=== PATIENT | male | born 1945 | race Caucasian/White ===

== ENCOUNTER 2024-04-08 19:47 | Inpatient (IN) | payer MEDICARE, SELFPAY ==
[2024-04-08] VITALS (10 sets, daily range): BP systolic 129–174; BP diastolic 63–84; BMI 31.6; BMI 31.2
[2024-04-08 15:17] LABS: % Basophils 0.3 % (0-2); % Eosinophils 0.5 % (0-6); % Immature Granulocytes 0.6 % (0-0.5); % Lymphocytes 7.2 % (20.5-51.1); % Monocytes 8.7 % (1.7-9.3); % Neutrophils 82.7 % (42.2-75.2); Absolute Eosinophils 0.1 10^3/uL (0-0.7); Absolute Immature Granulocytes 0.1 10^3/uL (0-0.05); Absolute Monocytes 1.2 10^3/uL (0.1-0.6); Absolute Neutrophils 11.8 10^3/uL (1.4-6.5); Hematocrit 42.2 % (39.0-52.0); Hemoglobin 14.6 g/dL (13.0-18.0); Mean Corp Hgb Conc. 34.6 g/dL (33.0-37.0); Mean Corpuscular Hgb 30.9 pg (27.0-31.0); Mean Corpuscular Volume 89.4 fL (80.0-94.0); Mean Platelet Volume 11.6 fL (7.4-10.4); Nucleated Red Blood Cells % 0 % (-); Platelet Count 184 10^3/uL (130-400); Red Blood Cell Count 4.72 10^6/uL (4.70-6.10); Red Cell Dist. Width 13.7 % (11.5-14.5); White Blood Cell Count 14.3 10^3/uL (4.8-10.8)
[2024-04-08 15:23] LABS: COVID-19 Antigen Negative (Negative)
[2024-04-08 15:48] LABS: ALT (SGPT) 34 U/L (0-50); AST (SGOT) 40 U/L (17-59); Albumin 4.2 g/dl (3.5-5.0); Alkaline Phosphatase 84 U/L (38-126); Blood Urea Nitrogen 24 mg/dl (9-20); Carbon Dioxide 25 mmol/L (22-30); Chloride 100 mmol/L (98-107); Estimated Creatinine Clearance 49 ml/min; Glucose 111 mg/dl (70-99); Sodium 141 mmol/L (135-145); Total Bilirubin 1.2 mg/dl (0.2-1.3); Total Protein 6.7 g/dl (6.3-8.2); eGFR 51.77
[2024-04-08 16:19] LABS: NT-proBNP 2370 pg/ml
[2024-04-08] MEDS: KCL 40 MEQ PO (16:30)
--- NOTE | 2024-04-08 16:54 | ED.GENMED ---
History of Present Illness
General
Chief Complaint: Weakness
Source: patient
Exam Limitations: none
Time Seen by Provider: 04/08/24 14:30
Nursing documentation reviewed up to this point in time: agreed with
History of Present Illness
History of Present Illness:
78-year-old male with a past medical history of hypertension, hyperlipidemia, CAD, stroke with residual right hemiparesis, diabetes who presents to the emergency room from home for evaluation of generalized weakness. Patient reports that for the
past 24 hours he has noticed that he is increasing weakness. He reports whole body weakness denies any focal weakness. He says that yesterday he had 2 minor falls but was able to help himself up. Today he had a fall and had difficulty getting up
and called EMS. He says that aside from feeling generally weak he has had some nasal congestion. He denies any other specific symptoms. He denies any cough, shortness of breath. Denies any chest pain, palpitations. Denies any abdominal pain,
nausea, vomiting, diarrhea. Denies any dysuria, hematuria, change in urinary frequency. He has chronic edema in his legs he says no worse than usual. He did have minor fall onto his bottom x 3 over the past 24 hours but says no head trauma and no
serious injuries.
Past History
Past History
ED Past Medical History: CAD, CVA and NIDDM
ED Past Surgical History: Cardiac
Social History
Tobacco: Former smoker
Alcohol: Occasional
Drug: None
Personal:
Living: alone
Employment: Retired
Family History
Family History: Other (Noncontributory)
Review of Systems
Review of Systems
All Other Systems: ROS reviewed and negative except as documented in HPI and ROS
Constitutional: Reports fatigue; Denies fever or chills
EENT: Reports other (Nasal congestion); Denies sore throat
Respiratory: Denies cough or trouble breathing
Cardiac: Denies chest pain, palpitations or syncope
ABD/GI: Denies abdominal pain, nausea, vomiting or diarrhea
: Denies dysuria, frequency or flank pain
Musculoskeletal: Reports edema; Denies neck pain or back pain
Neurological: Denies dizzy or headache
Phy Exam
Physical Exam
Physical Exam:
General: Awake, alert; no acute distress
Head: Normocephalic, atraumatic
Eyes: Conjunctiva normal, EOMI, pupils equal round and reactive to light
Throat: Airway intact, handling secretions
Neck: Trachea midline, supple without meningismus
Lungs: Clear to auscultation bilaterally, no wheezing, rales, rhonchi
Heart: Regular rate and rhythm, no murmurs, gallops, or rubs
Abd: Soft, non distended, nontender
Neuro: Cranial nerves intact, speech fluid, RLE > RUE weakness, strength intact left upper and left lower extremity (this is chronic per patient)
Extremities: +1 pitting edema bilateral lower extremities; no signs of acute trauma to the extremities, no reproducible tenderness and full range of motion in the upper and lower extremities without pain
Scores
Heart Failure Risk
Heart Failure Risk Score: Not Applicable
Heart Score for Chest Pain Patients
STEMI patient?: Not applicable
Withdrawal Assessment of Alcohol
Withdrawal Assessment Completed?: Not applicable
Sepsis
Sepsis Screening
Sepsis Assessment: Sepsis Ruled Out
Sepsis Screen
Sepsis Screen: Sepsis Ruled Out
Date: 04/11/24
Time: 22:02
Course
Orders/Labs/Results
Orders:
Orders
04/08/24 14:41
Electrocardiogram (*1) Urgent
Reason for Study: Fatigue / Weakness
EKG- Treatment ONCE
CR Chest Portable - 1 View Urgent
Comment:
Reason For Exam: weakness, eval for pna
Reason Study Needs to be Portable: Unable to Transport
04/08/24 Dinner
1800 calorie (15 carb) Diabetic
At Your Request: Full Participation
04/08/24 15:02
COVID-19 Antigen Urgent
Source: Nasal Swab
Complete Blood Count/With Diff Urgent
Comprehensive Metabolic Panel Urgent
Glycohemoglobin (HgbA1c) Urgent
Magnesium Urgent
NT-proBNP Urgent
TSH Reflex To Free T4 Urgent
Influenza A+B Rapid Molecular Urgent
LESA Source: Nasal Swab
Specimen Description:
04/08/24 15:55
Potassium Chloride [KCl] 40 meq PO NOW STA
04/08/24 17:06
Straight cath- Treatment ONCE
04/08/24 17:19
Urinalysis Reflex To Culture Urgent
Date Specimen was Collected: 04/08/24
Time Specimen was Collected: 17:18
Urine Microscopic Reflex Cult Urgent
Urine Culture Urgent
LESA Source: U
Specimen Description:
Date Specimen was Collected: 04/08/24
Time Specimen was Collected: 17:18
04/08/24 17:21
Case Management Consult ONCE
Case Management Consult: VN/Home Care
Pt Eval And Treat Urgent
Activity Level: With Assistance
04/08/24 17:42
Lactate Level [Lactic Acid] Urgent
Blood Culture Urgent
LESA Source: Blood/Venous
Specimen Description:
CefTRIAXone [Rocephin] 1,000 mg IV NOW STA
04/08/24 17:56
Blood Culture Routine
LESA Source: Blood/Venous
Specimen Description:
04/08/24 18:42
Admit/Transfer Patient As Directed
Co-Sign Provider:
Level of Care: Inpatient admission
Assign to:: Medical/Surgical
Physician / Group: josefina james
Diagnosis: Symptomatic UTI dysuria, weakness/falls with knee abrasions, hypokalemia
Reason for Hospitalization: Symptomatic UTI dysuria, weakness/falls with knee abrasions, hypokalemia
Expected length of stay greater than two midnights?: Yes
ELOS- Estimated Length of Stay in days: 3
I certify the patient meets the requirements for IP care: Yes
Code Status As Directed
Resuscitation Status: Full Code
04/08/24 18:47
PRN Pain Medication Management As Directed
May give lesser potent ordered pain med per pt: Yes
preference::
Protocol:: Medication orders for pain may be administered in a
manner that supports deferring to patient preference
when the pt is:
- Requesting an ordered lesser potent pain medication.
Least to most potent pain medications are defined
as: acetaminophen < NSAID < tramadol < opioids
(morphine, oxycodone, hydromorphone).
- Requesting a lesser dose of the same medication IF
ORDERED.
- Requesting a less intrusive route of administration
if both routes are prescribed by the provider (PO <
IV).
04/08/24 20:59
0.9% Sodium Chloride 1000 ml [Nss] 1,000 ml IV 80 mls/hr
Acetaminophen [Tylenol] 650 mg PO Q4HPRN PRN
Dextrose 50%-Water [Dextrose 50% Syringe] 12.5 grams IV [id number] PRN
Glucagon [GlucaGen] 1 mg IM PRN PRN
Heparin 5,000 units SC Q12
Ketorolac [Acular 0.5% Eye Drops] See Dose Instructions BOTH EYES BID
Metoprolol [Lopressor] 25 mg PO BID
04/08/24 20:59
Activity As Directed
Activity Level: With Assistance
Bedside Glucose Monitoring As Directed
Frequency: AC&HS
Additional Instructions:: Change to q6h if pt on TPN, tube feeding or not eating
Intake/ Output As Directed
Frequency: Per unit guidelines
Vital Signs As Directed
Frequency: Per unit guidelines
Weight As Directed
Frequency: Daily
Ot Eval And Treat Routine
Pt Eval And Treat Routine
Activity Level: With Assistance
DX Deep Vein Thrombosis Video Routine
04/08/24 21:02
Artificial Tears (Pf) [Refresh Eye Drops (Pf)] 1 drops BOTH EYES HSPRN PRN
04/08/24 22:00
Atorvastatin [Lipitor] 80 mg PO HS
Melatonin 10 mg PO HS
04/09/24 07:30
Insulin Aspart Corrective Low [Novolog Flexpen-Low Resistance] See Protocol SC AC
04/09/24 07:36
Complete Blood Count/With Diff IN AM
Comprehensive Metabolic Panel IN AM
04/09/24 08:00
Aspirin Low Dose EC [Aspir Low (Enteric Coated)] 81 mg PO DAILY
Lisinopril [Zestril] 10 mg PO DAILY
Polyethylene Glycol Powder [Miralax] 17 grams PO DAILY
Tamsulosin [Flomax] 0.4 mg PO DAILY
04/09/24 18:00
CefTRIAXone [Rocephin] 1,000 mg IV Q24H
04/10/24 06:04
Comprehensive Metabolic Panel IN AM
04/10/24 06:05
Complete Blood Count/With Diff IN AM
04/11/24 06:46
Complete Blood Count/With Diff IN AM
Comprehensive Metabolic Panel IN AM
Abnormal Lab Results
04/08/24 04/08/24
15:02 17:19
WBC 14.3 H 10^3/uL
(4.8-10.8)
MPV 11.6 H fL
(7.4-10.4)
Abs Immat Gran (auto) 0.1 H 10^3/uL
(0-0.05)
Absolute Neuts (auto) 11.8 H 10^3/uL
(1.4-6.5)
Absolute Lymphs (auto) 1.0 L 10^3/uL
(1.2-3.4)
Absolute Monos (auto) 1.2 H 10^3/uL
(0.1-0.6)
Immature Gran % 0.6 H %
(0-0.5)
Neutrophils % 82.7 H %
(42.2-75.2)
Lymphocytes % 7.2 L %
(20.5-51.1)
Potassium 3.0 L mmol/L
(3.5-5.1)
BUN 24 H mg/dl
(9-20)
Creatinine 1.4 H mg/dL
(0.7-1.3)
Glucose 111 H mg/dl
(70-99)
Hemoglobin A1c 5.7 H %
(4.0-5.6)
Urine Ketones 1+ A
(Negative)
Ur Occult Blood Reflex 3+ A
(Negative)
Urine Nitrite (Reflex) Positive A
(Negative)
Leukocyte Esterase Rfl 2+ A
(Negative)
Urine WBC (Reflex) 30-40 A /HPF
(0-5)
Urine Bacteria (Reflex) Many A
(Negative)
Urine Albumin (Reflex) 2+ A
(Neg - Trace)
04/08/24 15:02
04/08/24 15:02
Vital Signs
Initial and Last Documented VS:
Initial Vital Signs
Pulse Resp
94 16
04/08/24 14:27 04/08/24 14:27
Last Documented Vital Signs
Temp Pulse Resp BP Pulse Ox
36.6 C 76 18 116/57 98
04/11/24 15:05 04/11/24 15:05 04/11/24 15:05 04/11/24 15:05 04/11/24 15:05
MDM/Problems Addressed
Differential Diagnosis Includes:
Differential diagnosis for generalized weakness is wide and includes but not limited to: Anemia, dehydration, electrolyte derangement, infection including UTI or pneumonia, viral syndrome, dysrhythmia, CHF; no focal weakness to suggest stroke
MDM/Problems Addressed:
78-year-old male presents for evaluation of generalized weakness over the past 24 hours resulting in multiple minor falls. Lives by himself, supposed to use a walker but noncompliant. Vital signs normal here, physical exam as above. Will place an
IV check labs including a CBC, CMP. Check urinalysis. Check chest x-ray, EKG and proBNP. Swab for COVID and flu. Monitor closely reassess after the above.
Labs reviewed: CBC shows a leukocytosis to 14.3. CMP shows chronic kidney disease with stable creatinine 1.4. He is hypokalemic to 3.0�he has been on Lasix. Will provide potassium repletion. Magnesium was acceptable. proBNP was elevated to
2370; chest x-ray no signs of pneumonia, no angela edema. Awaiting results of urinalysis.
*Pulse Oximetry
Patient hypoxic: no
*EKG
Interpreted by ED Provider?: Yes
Heart Rate: 91
Rate: normal
Rhythm: sinus and PVC's
[place]: left axis deviation
Interval: first degree heart block
QRS Pattern: right bundle branch block
Ischemia: non-specific ST changes
*Critical Care Note
Total Time (30-74mins, 75-104mins- exclusive of procedures): Not Applicable
Data Reviewed
Review of Other/Old Records Reveals: Labs and Records
Source: patient and records
Patient Management
Social determinants of health affecting care: Living situation
Discussion with other providers: Hospitalist (Discussed with hospitalist) and Other (Discussed with case management)
Escalation/DeEscalation of care consider admission/obs:
Admission indicated
ED Attending Note
-
Portions of this chart may have been created with voice recognition software.� Occasional wrong word or��sound alike� substitutions may have occurred due to the inherent limitations of voice recognition software.
Discharge Plan
Departure
Patient Disposition: Admit
Date of Disposition: 04/08/24
Time of Disposition: 17:42
Admit to doctor: Nguyễn
Presentation/result/management discussed w/ accepting MD/DO: Hospitalist
Discharge Problem:
Acute UTI, Acute hypokalemia
Interventions
Interventions:
*Risk Screen - Suicide Last Done: 04/08/24 21:14
*General Assessment Last Done: 04/08/24 14:31
*Neglect/Abuse Screening Last Done: 04/08/24 14:31
ED- Fall Risk Assessment Last Done: 04/08/24 20:34
*Nursing Disposition Last Done: 04/08/24 20:40
ED- Cardiac Assessment Last Done: 04/08/24 14:35
ED- Neurological Assessment Last Done: 04/08/24 14:35
ED- Pulmonary Assessment Last Done: 04/08/24 14:35
Discharge Date and Time
Discharge Date/Time: 04/08/24 20:40
[2024-04-08 17:29] LABS: Urine Albumin 2+ (Neg - Trace); Urine Bilirubin Negative (Negative); Urine Character Very Cloudy (Clear); Urine Color Yellow; Urine Glucose Negative (Negative); Urine Ketone 1+ (Negative); Urine Leukocyte 2+ (Negative); Urine Nitrite Positive (Negative); Urine Occult Blood 3+ (Negative); Urine Urobilinogen Negative (Neg - 1+)
[2024-04-08 17:47] LABS: Urine Bacteria Many (Negative); Urine Red Blood Cell 0-2 /HPF (0-2); Urine White Cell 30-40 /HPF (0-5)
--- NOTE | 2024-04-08 17:53 | CM ---
CM was consulted to discuss discharge planning. CM met with patient in room. Patient stated that he does lives alone in a single floor home. Patient denies history of VN. Patient has been to [facility] in the past. Patient is active with his PCP.
Patient uses [facility] on [address].
Patient does report that his ex is 'very close by' and he often calls her for assistance. Patient further stated that his neighbors provide assistance as needed. Patient has had multiple falls recently. Patient did not express preference for
home or SNF. CM advised that PT will evaluate patient and further discharge recommendations will be made. CM will continue to follow.
[2024-04-08 17:57] LABS: TSH Reflex To Free T4 0.56 uIU/ml (0.47-4.68)
[2024-04-08] MEDS: ROCEPHIN 1000 MG IV (18:15)
--- NOTE | 2024-04-08 18:17 | HPS.HSE ---
Family Physician
-
Family Physician: Randy Miles
Chief Complaint
-
Falls, weakness, dysuria
History of Present Illness
78-year-old male complaining of increased weakness over his entire body over the past 24 hours with some dysuria he did have 2 falls yesterday and today while bending over to get something. He reports he called EMS to bring him to the hospital for
evaluation. He lives alone at home. He denies sore throat, headache, neck pain, chest pain, palpitations, shortness of breath, cough, abdominal pain, nausea, vomiting, diarrhea. He reports chronic edema in his legs not worse than baseline. He
has past medical history of hypertension, HLD, CAD/CABG x 3 vessel, CVA with residual right hemiparesis, DM 2, former smoker, dry eye syndrome, renal calculi lithotripsy [facility], [place], constipation
Medical History
Past Medical History
Past Medical History: Reports Other
Additional Past Medical History:
hypertension
HLD
CAD/CABG x 3 vessel
CVA with residual right hemiparesis
DM 2
former smoker
dry eye syndrome
renal calculi lithotripsy [facility]
UTIs, Klebsiella pneumoniae 01/09/2021
4 hemorrhagic right renal cyst 01/09/2021
[place]
constipation
Past Surgical History: Reports Other
Additional Past Surgical History:
CABG x 3 vessels 01/08/2014
Hemorrhoidectomy 2018
Tonsillectomy
Cataract extraction
Social History
Tobacco: Former Smoker ([id number] 2 to 3 pack a day. 1993)
Alcohol: Occasional (1 beer on Saturdays)
Drug: None
Personal:
Living: Alone
Employment: Retired
Family History
Family History: Other (Father failure to thrive, mother 'liver issues,')
Allergies / Home Medications
Allergies reflects when Allergies were last updated in [facility].
Home Medications with original date entered in [facility]
Allergy/Medication List:
Allergies
Allergy/AdvReac Type Severity Reaction Status Date / Time
pioglitazone [From Actos] Allergy Unknown Verified 01/09/21 15:33
Home Medications
acetaminophen 650 mg tablet,extended release (Pain Relief (acetaminophen)) 1,300 mg PO TIDPRN PRN mild pain 03/09/10
metformin 1,000 mg tablet 500 mg PO BID Diabetes 06/27/12
metoprolol tartrate 25 mg tablet 25 mg PO BID ##60 01/16/14
phenylephrine HCl 1 % nasal spray (Nasal Four) 1 spray NS Q1HPRN PRN congestion 02/07/14
aspirin 81 mg tablet,delayed release 81 mg PO DAILY Blood clot prevention/tx 08/11/16
atorvastatin 80 mg tablet 80 mg PO HS High cholesterol 08/11/16
guaifenesin 400 mg tablet 400 mg PO HS Cough 08/11/16
melatonin 10 mg tablet 10 mg PO HS Sleep 08/11/16
furosemide 40 mg tablet (Lasix) 40 mg PO DAILY Fluid retention/Swelling 01/09/21
glipizide 5 mg tablet 5 mg PO DAILY Diabetes 01/09/21
tamsulosin 0.4 mg capsule 0.4 mg PO DAILY #30 caps 01/11/21
ketorolac 0.5 % eye drops 1 drp BOTH EYES BID 04/08/24
lisinopril 10 mg-hydrochlorothiazide 12.5 mg tablet 1 tab PO DAILY 04/08/24
polyethylene glycol 3350 17 gram oral powder packet (Miralax) 17 g PO DAILY 04/08/24
propylene glycol 0.6 % eye drops (Systane Balance) 1 drp BOTH EYES HSPRN PRN dry eyes 04/08/24
psyllium husk 3.4 gram/5.4 gram oral powder (Metamucil) 2 tbsp PO DAILY 04/08/24
salicylic acid 3 % shampoo (DHS Hay) 1 applic topical .2-3X WEEKLY scalp rash 04/08/24
Review of Systems
-
History Source: Patient
A 12 point ROS was completed and negative except as noted: Yes
Constitutional: Reports Fatigue; Denies Fever or Chills
EENT: Reports Other (Chronic [place]); Denies Sore Throat or Runny Nose
Respiratory: Denies Cough or Trouble Breathing
Cardiac: Denies Chest Pain, Diaphoresis, Palpitations or Syncope
Abdomen/GI: Denies Abdominal Pain, Nausea, Vomiting, Diarrhea, Constipated, Bloody Stools or Black Stools
: Reports Dysuria and Dark Urine; Denies Frequency, Flank Pain, Incontinence, Difficulty Voiding, Urgency or Bleeding
Musculoskeletal: Reports Edema (Chronic +1 peripheral edema); Denies Joint Pain
Skin: Reports Other (Knee abrasions from recent falls); Denies Itching or Rash
Neurological: Reports Weakness (Generalized); Denies Dizzy or Headache
Endocrine: Reports No Symptoms
Hematologic/Lymphatic: Reports No Symptoms
Psych: Reports Calm
Physical Exam
Vital Signs
Vital Signs
Temp Pulse Resp BP Pulse Ox
99.7 F 87 14 165/74 94
04/08/24 14:33 04/08/24 16:00 04/08/24 16:00 04/08/24 16:00 04/08/24 16:00
Physical Exam
General: No Pain, Fever or Chills
HEENT: NormoCephalic, Anicteric, Moist mucous membranes, PERRLA, [place] Conjunctivae, No Ptosis, Neck Nontender and Other (Chronic [place])
Respiratory: Clear; No Wheezes, Rales or Rhonchi
Cardiac: S1/S2, Regular Rhythm and Peripheral Edema (Chronic +1); No Murmur, Rub or Gallop
Breast: Deferred by me
GI: Soft, Non Tender, Non Distended, Normal Bowel Sounds and No Hepatosplenomegaly
Rectal: Deferred by Provider
Genito-urinary: Deferred by me
Musculoskeletal: No Clubbing, No Cyanosis, Edema, Left Lower Extremity (Chronic +1) and Edema, Right Lower Extremity (Chronic +1); No Edema, Left Upper Extremity or Edema, Right Upper Extremity
Skin: Warm, Dry and Other (Knee abrasions from recent falls); No Rash
Neuro: AO x 3, No Motor Deficits, Cranial Nerves Intact and Other (Chronic [place]); No Slurred Speech, Facial Droop or Tremors
Psych: Calm
Laboratory Results
-
04/08/24 15:02
04/08/24 15:02
Laboratory Results
Lactic Acid 1.0 mmol/L (0.7-2.0) 04/08/24 17:42
Total Bilirubin 1.2 mg/dl (0.2-1.3) 04/08/24 15:02
AST 40 U/L (17-59) 04/08/24 15:02
ALT 34 U/L (0-50) 04/08/24 15:02
Alkaline Phosphatase 84 U/L (38-126) 04/08/24 15:02
Data Reviewed
-
Diagnostic Radiology: Report Reviewed by me
Lab Data: Labs Reviewed by me
Impression/Plan
-
Impression/plan:
Admit to telemetry
#Symptomatic UTI(dysuria)
#Weakness with FALLS / KNEE ABRASIONS 2/2 UTI
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
Follow-up MRI 01/10/2021-showing 4 small hemorrhagic cyst in the right kidney no evidence of renal cell carcinoma, moderate left hydroureteronephrosis
Urinalysis positive nitrates +2 leukocytes WBC 30�40 many bacteria +3 occult blood
-Follow urine culture
-IV Rocephin
-IV NSS
-Follow CBC, CMP
CXR: 1. No radiographic evidence for pneumonia, acute pulmonary edema, or pleural effusion.
2. Mild scarring/subsegmental atelectasis in the lower lungs.
3. Mild chronic elevation of the right hemidiaphragm.
4. Previous CABG surgery.
#Acute hypokalemia 2/2 diuresis
K3.0
-Patient given 40 KCl in ER
-Follow BMP in a.m.
-Hold diuretics
#DM 2
Accu-Cheks with SSI low, check HgbA1c
-Hold metformin 500 mg twice daily, glipizide 5 mg daily
#CKD 3B
Creat 1.4 appears baseline
-Follow BMP
#HTN�benign
BP 165/74
-Continue lisinopril 10 mg daily hold HCTZ, furosemide 40 mg daily
#HLD
-Continue atorvastatin 80 mg at bedtime
#CAD/CABG x 3 vessel
-Continue aspirin 81 mg daily, atorvastatin 80 mg at bedtime, metoprolol tartrate 25 mg twice daily
#CVA with residual right hemiparesis resolved
#Chronic leg edema
-Hold furosemide
#Insomnia
Continue melatonin 10 mg at bedtime
Other past medical history:
Former smoker
Dry eye syndrome-continue Systane as needed from home
Renal calculi lithotripsy [facility]
[place]
constipation-continue MiraLAX 17 g daily
DVT prophylaxis
Subcu heparin
Full code
--- NOTE | 2024-04-08 19:29 | W.PN.UPDATE ---
Update Note
Progress Note Update
This is an addendum to the H&P written by Maureen Reed on 04/08/2024. Patient seen and examined independently with PUBLIC ACCOUNTANT.
78-year-old male past medical history of diabetes, CKD 3B, hypertension, hyperlipidemia, CAD status post CABG, CVA, chronic leg edema, insomnia, here with symptomatic UTI and weakness and fall.
Labs show hypokalemia, leukocytosis.
Symptomatic UTI. Prior culture showed Klebsiella sensitive to ceftriaxone. IV fluids, await urine culture, ceftriaxone. Hypokalemia secondary to diuretics. Hold diuretics. Potassium repletion, check magnesium.
[2024-04-08 21:48] LABS: Glucose - Point of Care 134 mg/dl (70-99)
[2024-04-08] MEDS: MELATONIN 10 MG PO (21:54)
[2024-04-08] MEDS: LIPITOR 80 MG PO (21:54)
[2024-04-08] MEDS: LOPRESSOR 25 MG PO (21:54)
[2024-04-08] MEDS: HEPARIN 5000 UNITS SC (21:55)
[2024-04-08] MEDS: ACULAR 0.5% EYE DROPS 1 DROP BOTH EYES (22:01)
[2024-04-08] MEDS: NSS 1000 IV (22:02)
--- NOTE | 2024-04-08 22:10 | TRANSFER ---
Pt received from ED to room 417-2. Pt pulled over from stretcher to bed. Pt AAOx3. VSS. Bed alarm for safety. Pt oriented to room and call garcia within reach.
[2024-04-09] MEDS: TYLENOL 650 MG PO ×2 (02:36→10:50)
[2024-04-09 06:00] VITALS: BMI 31.6
[2024-04-09 07:25] VITALS: BP 161/76
[2024-04-09 07:55] LABS: Glucose - Point of Care 93 mg/dl (70-99)
[2024-04-09] MEDS: NOVOLOG FLEXPEN-LOW RESISTANCE SC ×2 (08:03→16:35)
[2024-04-09] MEDS: ACULAR 0.5% EYE DROPS 1 DROP BOTH EYES ×2 (08:21→19:45)
[2024-04-09] MEDS: LOPRESSOR 25 MG PO ×2 (08:22→19:46)
[2024-04-09] MEDS: ASPIR LOW (ENTERIC COATED) 81 MG PO (08:22)
[2024-04-09] MEDS: FLOMAX 0.4 MG PO (08:22)
[2024-04-09] MEDS: ZESTRIL 10 MG PO (08:22)
[2024-04-09] MEDS: HEPARIN 5000 UNITS SC ×2 (08:23→19:45)
[2024-04-09 08:30] LABS: Hematocrit 39.8 % (39.0-52.0); Hemoglobin 14.5 g/dL (13.0-18.0); Mean Corp Hgb Conc. 36.4 g/dL (33.0-37.0); Mean Corpuscular Hgb 31.4 pg (27.0-31.0); Mean Corpuscular Volume 86.1 fL (80.0-94.0); Mean Platelet Volume 12.9 fL (7.4-10.4); Platelet Count 148 10^3/uL (130-400); Red Blood Cell Count 4.62 10^6/uL (4.70-6.10); Red Cell Dist. Width 13.5 % (11.5-14.5); White Blood Cell Count 9.1 10^3/uL (4.8-10.8)
[2024-04-09 09:00] LABS: ALT (SGPT) 39 U/L (0-50); AST (SGOT) 48 U/L (17-59); Albumin 4.1 g/dl (3.5-5.0); Alkaline Phosphatase 83 U/L (38-126); Blood Urea Nitrogen 24 mg/dl (9-20); Calcium 9.3 mg/dl (8.4-10.2); Carbon Dioxide 28 mmol/L (22-30); Chloride 101 mmol/L (98-107); Estimated Creatinine Clearance 49 ml/min; Glucose 108 mg/dl (70-99); Potassium 2.9 mmol/L (3.5-5.1); Sodium 144 mmol/L (135-145); Total Bilirubin 0.8 mg/dl (0.2-1.3); Total Protein 6.9 g/dl (6.3-8.2); eGFR 51.77
[2024-04-09 09:18] LABS: % Basophils 0.4 % (0-2); % Eosinophils 1.8 % (0-6); % Immature Granulocytes 0.8 % (0-0.5); % Lymphocytes 13.6 % (20.5-51.1); % Monocytes 8.9 % (1.7-9.3); % Neutrophils 74.5 % (42.2-75.2); Absolute Eosinophils 0.2 10^3/uL (0-0.7); Absolute Immature Granulocytes 0.1 10^3/uL (0-0.05); Absolute Lymphocytes 1.2 10^3/uL (1.2-3.4); Absolute Monocytes 0.8 10^3/uL (0.1-0.6); Absolute Neutrophils 6.8 10^3/uL (1.4-6.5); Nucleated Red Blood Cells % 0 % (-)
[2024-04-09 09:36] VITALS: BP 160/66; PULSE 70; O2SAT 96
[2024-04-09 09:44] LABS: Glycohemoglobin (HgbA1c) 5.7 % (4.0-5.6)
[2024-04-09 11:26] LABS: Glucose - Point of Care 159 mg/dl (70-99)
[2024-04-09] MEDS: NOVOLOG FLEXPEN-LOW RESISTANCE 1 UNITS SC (12:22)
[2024-04-09 13:39] VITALS: BP 119/88; PULSE 74; O2SAT 98
--- NOTE | 2024-04-09 13:47 | W.PN.HOSP.TC ---
Today's Communication/Plan
-
f/u urine/blood cs report
continue on rocephin
Assessment / Plan
Assessment / Plan
1. UTI - organism unknown
Sepsis - leukocytosis/fever - POA
h/o of Klebsiella Pneumonia UTI
-patient presented with gen weakness,
-febrile last night, TWBC trending down
-UA showing pyuria/bacteriuria
-f/u urine and blood cs report
-maintain on Rocephin based on previous urine cs report
2. Generalized weakness
Mechanical fall
-PT/OT evaluation
3. Hypokalemia
-Provide oral kcl 40meq x2h
-mag wnl
4. CKDIIIA
- cr trend reviewed and patient cr close to 1.4
-close to baseline, monitor
5. HTN urgency
Essential HTN
-maintained on lisinopril/metoprolol 25mg/bid
-PRN hydralazine for SBP > 160
NIDDM
HLD
CAD/CABG
h/o CVA with residual right hemiparesis
Chronic leg edema
Insomnia
Former smoker
Dry eye syndrome
Renal calculi
DVT PPX - heparin subq
Full code
Anticipated Discharge: 24 - 48 hours
Subjective/Interval History
-
Date of Service: April 09, 2024
no complains overnight
continues to have fever overnight
Objective Data
-
Labs:
Laboratory Results
04/09/24
07:36
WBC 9.1
Hgb 14.5
Hct 39.8
Plt Count 148
Sodium 144
Potassium 2.9 L
Chloride 101
Carbon Dioxide 28
BUN 24 H
Creatinine 1.4 H
Glucose 108 H
Calcium 9.3
Total Bilirubin 0.8
AST 48
ALT 39
Alkaline Phosphatase 83
Vital Signs:
Vital Signs
Temp Pulse Resp BP Pulse Ox
98.1 F 82 20 161/76 96
04/09/24 07:25 04/09/24 07:25 04/09/24 07:25 04/09/24 07:25 04/09/24 07:25
I&O
04/08/24 04/09/24 04/10/24
06:59 06:59 06:59
Intake Total 480 / 480
Balance 480 / 480
Review of Systems
-
Respiratory: Reports No Symptoms
Cardiac: Reports No Symptoms
Abdomen/GI: Reports No Symptoms
Physical Exam
-
General: No Apparent Distress and Comfortable
HEENT: Negative Oxygen
Respiratory: Clear to Auscultation
Cardiac: Regular Rhythm and S1/S2; Negative Murmur or Rub
GI: Soft, Nontender, Nondistended and Normal Bowel Sounds
Musculoskeletal: No Edema
Neuro: Awake, Alert, Oriented, No Motor Deficits and Nonfocal/Grossly Intact
Psych: Calm
[2024-04-09] MEDS: KCL 40 MEQ PO ×2 (14:14→17:32)
[2024-04-09] MEDS: NSS 1000 IV (14:14)
[2024-04-09 15:30] VITALS: BP 153/76
[2024-04-09 16:32] LABS: Glucose - Point of Care 113 mg/dl (70-99)
[2024-04-09] MEDS: STERILE WATER FOR INJECTION 10 ML IV (17:31)
[2024-04-09] MEDS: ROCEPHIN 1000 MG IV (17:31)
[2024-04-09 19:25] VITALS: BP 176/83
[2024-04-09 21:34] LABS: Glucose - Point of Care 113 mg/dl (70-99)
[2024-04-09] MEDS: LIPITOR 80 MG PO (22:21)
[2024-04-09] MEDS: MELATONIN 10 MG PO (22:21)
[2024-04-09 23:00] VITALS: BP 160/73
[2024-04-10] MEDS: TYLENOL 650 MG PO ×2 (00:34→23:19)
[2024-04-10 06:00] VITALS: BMI 31.8
[2024-04-10 07:00] VITALS: BP 165/74
[2024-04-10 07:05] LABS: % Basophils 0.5 % (0-2); % Eosinophils 4.6 % (0-6); % Immature Granulocytes 0.4 % (0-0.5); % Lymphocytes 21.8 % (20.5-51.1); % Monocytes 19.6 % (1.7-9.3); % Neutrophils 53.1 % (42.2-75.2); Absolute Eosinophils 0.3 10^3/uL (0-0.7); Absolute Lymphocytes 1.2 10^3/uL (1.2-3.4); Absolute Monocytes 1.1 10^3/uL (0.1-0.6); Hematocrit 37.5 % (39.0-52.0); Hemoglobin 12.9 g/dL (13.0-18.0); Mean Corp Hgb Conc. 34.4 g/dL (33.0-37.0); Mean Corpuscular Hgb 29.7 pg (27.0-31.0); Mean Corpuscular Volume 86.4 fL (80.0-94.0); Mean Platelet Volume 11.9 fL (7.4-10.4); Nucleated Red Blood Cells % 0 % (-); Platelet Count 157 10^3/uL (130-400); Red Blood Cell Count 4.34 10^6/uL (4.70-6.10); Red Cell Dist. Width 13.4 % (11.5-14.5); White Blood Cell Count 5.6 10^3/uL (4.8-10.8)
[2024-04-10 07:43] LABS: ALT (SGPT) 60 U/L (0-50); AST (SGOT) 66 U/L (17-59); Albumin 3.2 g/dl (3.5-5.0); Alkaline Phosphatase 71 U/L (38-126); Blood Urea Nitrogen 22 mg/dl (9-20); Calcium 8.6 mg/dl (8.4-10.2); Carbon Dioxide 24 mmol/L (22-30); Chloride 108 mmol/L (98-107); Estimated Creatinine Clearance 58 ml/min; Glucose 113 mg/dl (70-99); Potassium 3.1 mmol/L (3.5-5.1); Sodium 141 mmol/L (135-145); Total Bilirubin 0.5 mg/dl (0.2-1.3); Total Protein 5.6 g/dl (6.3-8.2); eGFR > 60.00
[2024-04-10 08:03] LABS: Glucose - Point of Care 108 mg/dl (70-99)
[2024-04-10] MEDS: NOVOLOG FLEXPEN-LOW RESISTANCE SC ×2 (08:03→16:28)
[2024-04-10] MEDS: ACULAR 0.5% EYE DROPS 1 DROP BOTH EYES ×2 (08:45→19:36)
[2024-04-10] MEDS: ASPIR LOW (ENTERIC COATED) 81 MG PO (08:46)
[2024-04-10] MEDS: ZESTRIL 10 MG PO (08:46)
[2024-04-10] MEDS: LOPRESSOR 25 MG PO ×2 (08:46→19:35)
[2024-04-10] MEDS: FLOMAX 0.4 MG PO (08:46)
[2024-04-10] MEDS: HEPARIN 5000 UNITS SC ×2 (08:47→19:36)
[2024-04-10 11:52] LABS: Glucose - Point of Care 192 mg/dl (70-99)
[2024-04-10] MEDS: NOVOLOG FLEXPEN-LOW RESISTANCE 1 UNITS SC (11:53)
--- NOTE | 2024-04-10 14:05 | W.PN.HOSP.TC ---
Today's Communication/Plan
-
check LFT
d/c planning snf rehab
Assessment / Plan
Assessment / Plan
1. UTI - organism unknown
Sepsis - leukocytosis/fever - POA
h/o of Klebsiella Pneumonia UTI
-patient presented with gen weakness,
-febrile last night, TWBC trending down
-UA showing pyuria/bacteriuria
-Blood cultures negative. Urine culture growing mixed amena
-Patient had appropriate response to Rocephin, can likely be transition to Omnicef at discharge
2. Generalized weakness
Mechanical fall
-PT/OT evaluated and appropriate for home PT versus short-term rehab, patient chose short rehab
3. Hypokalemia
-Replaced 80 mEq on Thursday, giving 40 mEq today
-mag wnl
4. CKDIIIA
- cr trend reviewed and patient cr close to 1.2-1.4 range
5. HTN urgency - resolved
Essential HTN
-maintained on lisinopril 10mg /metoprolol 25mg/bid
-PRN hydralazine for SBP > 160
6. Transaminitis
-new minor elevation in LFT today, questioning rocephin use related
-recheck in morning
NIDDM
HLD
CAD/CABG
h/o CVA with residual right hemiparesis
Chronic leg edema
Insomnia
Former smoker
Dry eye syndrome
Renal calculi
DVT PPX - heparin subq
Full code
PT/OT short rehab
Anticipated Discharge: Within 24 hours
Subjective/Interval History
-
Date of Service: April 10, 2024
Feeling better
Afebrile overnight
No abdominal pain/dysuria/nausea/vomiting
Objective Data
-
Labs:
Laboratory Results
04/10/24 04/10/24
06:04 06:05
WBC 5.6
Hgb 12.9 L
Hct 37.5 L
Plt Count 157
Sodium 141
Potassium 3.1 L
Chloride 108 H
Carbon Dioxide 24
BUN 22 H
Creatinine 1.2
Glucose 113 H
Calcium 8.6
Total Bilirubin 0.5
AST 66 H
ALT 60 H
Alkaline Phosphatase 71
Vital Signs:
Vital Signs
Temp Pulse Resp BP Pulse Ox
97.5 F 62 16 165/74 98
04/10/24 07:00 04/10/24 08:46 04/10/24 07:00 04/10/24 08:46 04/10/24 07:00
I&O
04/09/24 04/10/24 04/11/24
06:59 06:59 06:59
Intake Total 480 / 480 960 / 960
Output Total 460 / 460
Balance 480 / 480 500 / 500
Review of Systems
-
Respiratory: Reports No Symptoms
Cardiac: Reports No Symptoms
Abdomen/GI: Reports No Symptoms
Physical Exam
-
General: No Apparent Distress and Comfortable
HEENT: Negative Oxygen
Respiratory: Clear to Auscultation
Cardiac: Regular Rhythm and S1/S2; Negative Murmur or Rub
GI: Soft, Nontender, Nondistended and Normal Bowel Sounds
Musculoskeletal: No Edema
Neuro: Awake, Alert, Oriented, No Motor Deficits and Nonfocal/Grossly Intact
Psych: Calm
[2024-04-10] MEDS: KLOR-CON 40 MEQ PO (14:10)
[2024-04-10 15:00] VITALS: BP 136/62
--- NOTE | 2024-04-10 15:17 | CM ---
Patient with Dx UTI, Sepsis, Generalized weakness, Mechanical fall. Room air. Receiving IV Abx. PT recommends AR vs SNF. OT recommends skilled rehab.
Spoke with patient about his current functional mobility as per PT/OT; patient agrees with short term rehab. He prefers to go to [facility] where he went previously for SNF, and will consider other SNFs if they are unavailable. Patient says he makes
his own care decisions, and his brother is currently out of town. His ex- sometimes assists him with things such as transportation.
SNF referral placed.
Plan follow up tomorrow with [facility].
[2024-04-10 16:29] LABS: Glucose - Point of Care 144 mg/dl (70-99)
[2024-04-10] MEDS: STERILE WATER FOR INJECTION 10 ML IV (17:10)
[2024-04-10] MEDS: ROCEPHIN 1000 MG IV (17:10)
[2024-04-10] MEDS: GLUCOPHAGE 500 MG PO (17:10)
[2024-04-10 19:30] VITALS: BP 157/76
[2024-04-10 21:10] LABS: Glucose - Point of Care 185 mg/dl (70-99)
[2024-04-10] MEDS: LIPITOR 80 MG PO (21:11)
[2024-04-10] MEDS: MELATONIN 10 MG PO (21:11)
[2024-04-10] MEDS: APRESOLINE 10 MG IV (23:12)
[2024-04-10 23:41] VITALS: BP 178/83
[2024-04-11 04:27] VITALS: BP 145/64
[2024-04-11 07:26] LABS: % Basophils 0.8 % (0-2); % Eosinophils 6.2 % (0-6); % Immature Granulocytes 0.6 % (0-0.5); % Lymphocytes 25.5 % (20.5-51.1); % Neutrophils 48.9 % (42.2-75.2); Absolute Eosinophils 0.3 10^3/uL (0-0.7); Absolute Lymphocytes 1.3 10^3/uL (1.2-3.4); Absolute Monocytes 0.9 10^3/uL (0.1-0.6); Absolute Neutrophils 2.5 10^3/uL (1.4-6.5); Hematocrit 39.3 % (39.0-52.0); Hemoglobin 13.4 g/dL (13.0-18.0); Mean Corp Hgb Conc. 34.1 g/dL (33.0-37.0); Mean Corpuscular Hgb 30.5 pg (27.0-31.0); Mean Corpuscular Volume 89.3 fL (80.0-94.0); Mean Platelet Volume 11.5 fL (7.4-10.4); Nucleated Red Blood Cells % 0 % (-); Platelet Count 177 10^3/uL (130-400); Red Cell Dist. Width 13.2 % (11.5-14.5); White Blood Cell Count 5.2 10^3/uL (4.8-10.8)
[2024-04-11 07:34] LABS: Glucose - Point of Care 125 mg/dl (70-99)
[2024-04-11] MEDS: NOVOLOG FLEXPEN-LOW RESISTANCE SC ×2 (07:37→12:33)
[2024-04-11 07:42] VITALS: BP 148/73
[2024-04-11 07:49] LABS: ALT (SGPT) 85 U/L (0-50); AST (SGOT) 77 U/L (17-59); Albumin 3.1 g/dl (3.5-5.0); Alkaline Phosphatase 82 U/L (38-126); Blood Urea Nitrogen 20 mg/dl (9-20); Calcium 8.9 mg/dl (8.4-10.2); Carbon Dioxide 26 mmol/L (22-30); Chloride 107 mmol/L (98-107); Estimated Creatinine Clearance 63 ml/min; Glucose 126 mg/dl (70-99); Potassium 3.3 mmol/L (3.5-5.1); Sodium 143 mmol/L (135-145); Total Bilirubin 0.3 mg/dl (0.2-1.3); Total Protein 5.7 g/dl (6.3-8.2); eGFR > 60.00
[2024-04-11] MEDS: GLUCOPHAGE 500 MG PO (08:29)
[2024-04-11] MEDS: GLUCOTROL 5 MG PO (08:29)
[2024-04-11] MEDS: FLOMAX 0.4 MG PO (08:29)
[2024-04-11] MEDS: LOPRESSOR 25 MG PO (08:29)
[2024-04-11] MEDS: HEPARIN 5000 UNITS SC (08:29)
[2024-04-11] MEDS: ASPIR LOW (ENTERIC COATED) 81 MG PO (08:30)
[2024-04-11] MEDS: ZESTRIL 10 MG PO (08:30)
[2024-04-11] MEDS: ACULAR 0.5% EYE DROPS 1 DROP BOTH EYES (08:30)
[2024-04-11] MEDS: KCL 20 MEQ PO (08:33)
[2024-04-11 08:51] VITALS: BMI 31.8
[2024-04-11] MEDS: TYLENOL 650 MG PO (10:47)
--- NOTE | 2024-04-11 11:35 | W.PN.HOSP.TC ---
Addendum entered and electronically signed by Wilfredo Grider MD 04/11/24 11:51:
Time of discharge 38 minutes
Original Note:
Today's Communication/Plan
-
Monitor vital signs see plan
Replete potassium
Continue to biotics
Monitor LFTs
Restart Lasix
Discharge planning
Assessment / Plan
Assessment / Plan
UTI - organism unknown
Sepsis - leukocytosis/fever - POA
h/o of Klebsiella Pneumonia UTI
-patient presented with gen weakness,
-febrile last night, TWBC trending down
-UA showing pyuria/bacteriuria
-Blood cultures negative. Urine culture growing mixed aemna
-Patient had appropriate response to Rocephin, can likely be transition to cefdinir at discharge
Generalized weakness
Mechanical fall
-PT/OT evaluated and appropriate for home PT versus short-term rehab, patient chose short rehab
Hypokalemia
replete
CKDIIIA
- cr trend reviewed and patient cr close to 1.2-1.4 range
HTN urgency - resolved
Essential HTN
-maintained on lisinopril 10mg /metoprolol 25mg/bid
-PRN hydralazine for SBP > 160
Transaminitis
-new minor elevation in LFT today, questioning rocephin use related
-recheck in morning
NIDDM
HLD
CAD/CABG
h/o CVA with residual right hemiparesis
Chronic leg edema
Insomnia
Former smoker
Dry eye syndrome
Renal calculi
DVT PPX - heparin subq
Full code
PT/OT short rehab
General: No Apparent Distress and Comfortable
HEENT: Negative Oxygen
Respiratory: Clear to Auscultation
Cardiac: Regular Rhythm and S1/S2; Negative Murmur or Rub
GI: Soft, Nontender, Nondistended and Normal Bowel Sounds
Musculoskeletal: No Edema
Neuro: Awake, Alert, Oriented, No Motor Deficits and Nonfocal/Grossly Intact
Psych: Calm
Anticipated Discharge: Within 24 hours
Subjective/Interval History
-
Date of Service: April 11, 2024
denies pain
Objective Data
-
Labs:
Laboratory Results
04/11/24
06:46
WBC 5.2
Hgb 13.4
Hct 39.3
Plt Count 177
Sodium 143
Potassium 3.3 L
Chloride 107
Carbon Dioxide 26
BUN 20
Creatinine 1.1
Glucose 126 H
Calcium 8.9
Total Bilirubin 0.3
AST 77 H
ALT 85 H
Alkaline Phosphatase 82
Vital Signs:
Vital Signs
Temp Pulse Resp BP Pulse Ox
97.4 F 63 19 148/72 97
04/11/24 07:42 04/11/24 08:29 04/11/24 07:42 04/11/24 08:29 04/11/24 10:00
I&O
04/10/24 04/11/24 04/12/24
06:59 06:59 06:59
Intake Total 960 / 960 1620 / 1620
Output Total 460 / 460 700 / 700
Balance 500 / 500 920 / 920
--- NOTE | 2024-04-11 11:51 | W.DCSUMMARY ---
Discharge Summary
Discharge Data
Date of Admission: 04/08/24
Date of Discharge: 04/11/24
-
Pending Results: No
Hospital Course
78-year-old male with past medical history of hypertension, [id number] diabetes mellitus, CAD/CABG, hyperlipidemia, history of CVA with right residual hemiparesis, chronic leg edema, insomnia, dry eye syndrome, renal calculi came to the
hospital with urinary tract infection and sepsis. Patient urine culture grew mixed amena however given her symptoms she was treated with antibiotics. Upon discharge she was transitioned to oral antibiotics. She also had generalized weakness with
multiple falls for which she was seen by physical therapy who recommended SNF. Once her symptoms continue to improve, she was then discharged to SNF with instructions to follow-up with all her physicians outpatient. She also had mild transaminitis
which was likely thought was secondary to antibiotics use. On discharge she was instructed to repeat blood work outpatient.
Discharge Plan
-
Patient Disposition: Senior Living/SNF
Discharge Diagnosis/Procedures: Sepsis likely secondary to urinary tract infection
Ambulatory dysfunction
Hypokalemia
Hypertensive urgency
Transaminitis
Diet: As tolerated
Activity: As tolerated
Driving Restrictions: Not until seen by your Dr
Bathing Restrictions: None
Blood Work: CMP next week with primary care provider
Referrals:
Randy Miles MD [Family Provider] - in less than 1 week
Prescriptions:
New
cefdinir 300 mg capsule
300 mg PO BID Qty: 10 0RF
Continued
acetaminophen [Pain Relief (acetaminophen)] 650 MG tablet extended release
1,300 mg PO TIDPRN PRN (Reason: mild pain)
metformin 1,000 MG tablet
500 mg PO BID
metoprolol tartrate 25 MG tablet
25 mg PO BID Qty: 60 2RF
Nasal Four 29.6 ML spray,non-aerosol
1 spray NS Q1HPRN PRN (Reason: congestion)
aspirin 81 MG tablet,delayed release (DR/EC)
81 mg PO DAILY
guaifenesin 400 MG tablet
400 mg PO HS
melatonin 10 MG tablet
10 mg PO HS
atorvastatin 80 MG tablet
80 mg PO HS
glipizide 5 MG tablet
5 mg PO DAILY
furosemide [Lasix] 40 MG tablet
40 mg PO DAILY
tamsulosin 0.4 MG capsule
0.4 mg PO DAILY Qty: 30 0RF
polyethylene glycol 3350 [Miralax] 17 gram Powder In Packet
17 g PO DAILY
ketorolac 0.5 % Drops
1 drp BOTH EYES BID
DHS Hay 3 % Shampoo
1 applic TOPICAL .2-3X WEEKLY
lisinopril-hydrochlorothiazide 10-12.5 mg Tablet
1 tab PO DAILY
Systane Balance 0.6 % Drops
1 drp BOTH EYES HSPRN PRN (Reason: dry eyes)
Metamucil 3.4 gram/5.4 gram Powder
2 tbsp PO DAILY
Discharge Orders:
Discharge Patient (As Directed); Ordered 04/11/24
Ordered By: Wilfredo Grider
Discharge Date and Time
Discharge Date/Time: 04/11/24 15:17
Print Language: BULGARIAN
[2024-04-11] MEDS: LASIX 40 MG PO (12:00)
[2024-04-11 12:32] LABS: Glucose - Point of Care 81 mg/dl (70-99)
[2024-04-11 14:08] VITALS: BP 106/63
--- NOTE | 2024-04-11 14:47 | CM ---
Plan: [facility] today
IMM completed.
[facility]
report# [phone]
fax# [phone]
Ambulance transport 3 pm.
[2024-04-11 15:05] VITALS: BP 116/57
== END 2024-04-11 15:17 | DRG 872 ==
LOC: 4 WEST ACU 19:47
PROVIDERS: Clinical Nurse Specialist Family Health; ADMITTING PHYSICIAN Hospitalist; ATTENDING PHYSICIAN Internal Medicine; EMERGENCY PHYSICIAN Emergency Medicine; FAMILY PHYSICIAN Family Medicine
DX: A41.9 Sepsis, unspecified organism (principal); N39.0 Urinary tract infection, site not specified; I69.351 Hemiplegia and hemiparesis following cerebral infarction affecting right dominant side; Z87.891 Personal history of nicotine dependence; E87.6 Hypokalemia; I12.9 Hypertensive chronic kidney disease with stage 1 through stage 4 chronic kidney disease, or unspecified chronic kidney disease; N18.31 Chronic kidney disease, stage 3a; I16.0 Hypertensive urgency; Z11.52 Encounter for screening for COVID-19; E11.22 Type 2 diabetes mellitus with diabetic chronic kidney disease
CPT/HCPCS: 51701; 71045; 80053; 81003; 81015; 82962; 83036; 83605; 83735; 83880; 84443; 85025; 87040; 87086; 87502; 87811; 93005; 96374; 97163; 97167; 97530; 99285

== ENCOUNTER → 2024-04-19 11:24 | Outpatient (REF) | payer MEDICARE, SELFPAY ==
[2024-04-19 13:43] LABS: ALT (SGPT) 32 U/L (0-50); AST (SGOT) 24 U/L (17-59); Albumin 3.8 g/dl (3.5-5.0); Alkaline Phosphatase 67 U/L (38-126); Blood Urea Nitrogen 28 mg/dl (9-20); Calcium 9.5 mg/dl (8.4-10.2); Carbon Dioxide 28 mmol/L (22-30); Chloride 100 mmol/L (98-107); Glucose 123 mg/dl (70-99); Potassium 4.5 mmol/L (3.5-5.1); Sodium 139 mmol/L (135-145); Total Bilirubin 0.7 mg/dl (0.2-1.3); Total Protein 6.3 g/dl (6.3-8.2); eGFR 41.01
== END ==
LOC: OLABP 11:24
PROVIDERS: ATTENDING PHYSICIAN Family Medicine
DX: M62.81 Muscle weakness (generalized) (principal); R26.2 Difficulty in walking, not elsewhere classified; E87.6 Hypokalemia; I50.9 Heart failure, unspecified; N18.30 Chronic kidney disease, stage 3 unspecified; I10 Essential (primary) hypertension; R60.0 Localized edema; N13.30 Unspecified hydronephrosis; N39.0 Urinary tract infection, site not specified
CPT/HCPCS: 36415; 80053

== ENCOUNTER → 2024-04-22 10:33 | Outpatient (REF) | payer OTHER, MEDICARE, SELFPAY ==
[2024-04-22 11:31] LABS: ALT (SGPT) 29 U/L (0-50); AST (SGOT) 25 U/L (17-59); Albumin 3.6 g/dl (3.5-5.0); Alkaline Phosphatase 55 U/L (38-126); Blood Urea Nitrogen 30 mg/dl (9-20); Calcium 9.1 mg/dl (8.4-10.2); Carbon Dioxide 26 mmol/L (22-30); Chloride 103 mmol/L (98-107); Glucose 114 mg/dl (70-99); Potassium 4.6 mmol/L (3.5-5.1); Sodium 142 mmol/L (135-145); Total Bilirubin 0.6 mg/dl (0.2-1.3); eGFR 41.01
== END ==
LOC: OLABP 10:33
PROVIDERS: ATTENDING PHYSICIAN Family Medicine
DX: I50.9 Heart failure, unspecified (principal); E87.6 Hypokalemia; A41.9 Sepsis, unspecified organism; N18.30 Chronic kidney disease, stage 3 unspecified; I10 Essential (primary) hypertension; E11.9 Type 2 diabetes mellitus without complications; I25.10 Atherosclerotic heart disease of native coronary artery without angina pectoris; N13.30 Unspecified hydronephrosis
CPT/HCPCS: 36415; 80053

== ENCOUNTER → 2024-04-26 10:36 | Outpatient (REF) | payer OTHER, MEDICARE, SELFPAY ==
[2024-04-26 11:55] LABS: Blood Urea Nitrogen 29 mg/dl (9-20); Calcium 9.4 mg/dl (8.4-10.2); Carbon Dioxide 24 mmol/L (22-30); Chloride 104 mmol/L (98-107); Glucose 126 mg/dl (70-99); Potassium 4.7 mmol/L (3.5-5.1); Sodium 142 mmol/L (135-145); eGFR 47.65
== END ==
LOC: OLABP 10:36
PROVIDERS: ATTENDING PHYSICIAN Family Medicine
DX: I50.9 Heart failure, unspecified (principal); E87.6 Hypokalemia; A41.9 Sepsis, unspecified organism; N18.30 Chronic kidney disease, stage 3 unspecified; I10 Essential (primary) hypertension; E11.9 Type 2 diabetes mellitus without complications; I25.10 Atherosclerotic heart disease of native coronary artery without angina pectoris; N13.30 Unspecified hydronephrosis
CPT/HCPCS: 36415; 80048

== ENCOUNTER 2024-05-25 03:44 | Inpatient (IN) | payer MEDICARE, SELFPAY ==
[2024-05-25] VITALS (19 sets, daily range): BP systolic 102–151; BP diastolic 39–129; BMI 31.5; BMI 32.6
[2024-05-25 01:03] LABS: % Basophils 0.4 % (0-2); % Eosinophils 3.6 % (0-6); % Immature Granulocytes 0.3 % (0-0.5); % Lymphocytes 26.6 % (20.5-51.1); % Monocytes 11.3 % (1.7-9.3); % Neutrophils 57.8 % (42.2-75.2); Absolute Eosinophils 0.3 10^3/uL (0-0.7); Absolute Lymphocytes 1.9 10^3/uL (1.2-3.4); Absolute Monocytes 0.8 10^3/uL (0.1-0.6); Hematocrit 39.2 % (39.0-52.0); Hemoglobin 12.9 g/dL (13.0-18.0); Mean Corp Hgb Conc. 32.9 g/dL (33.0-37.0); Mean Corpuscular Hgb 30.9 pg (27.0-31.0); Mean Platelet Volume 11.4 fL (7.4-10.4); Nucleated Red Blood Cells % 0 % (-); Platelet Count 167 10^3/uL (130-400); Red Blood Cell Count 4.17 10^6/uL (4.70-6.10); Red Cell Dist. Width 13.7 % (11.5-14.5)
--- NOTE | 2024-05-25 01:07 | ED.GENMED ---
History of Present Illness
<DENICE Pemberton - Last Filed: 05/26/24 05:36>
General
Chief Complaint: Chest Pain
Source: patient
Exam Limitations: none
Time Seen by Provider: 05/25/24 00:55
Nursing documentation reviewed up to this point in time: agreed with except (pain was 8/10 originally)
History of Present Illness
History of Present Illness:
Pt is a 78 yo M w/ PMH of CKD stage 3a, HFpEF, HLD, CAD, Type 2 DM and HTN who presents to the ED via EMS with chest pain x 4 hours. He states he was sitting at his desk at home when the pain started. Pt states it was originally an 8/10. He states
he experienced chest pain last week that went away with Tums, so he tried 3 of those again tonight without relief. He then tried 2 nitroglycerin without relief, causing him to call 911. [address] to the ED, he was given 4 81mg aspirin and 2
additional nitroglycerin. Upon arrival he states his pain is now around 2/10. He states he went to his tree feller operator earlier today, who recommended he have a stress test and ECHO done soon. Pt denies radiation of pain, diaphoresis, numbness/tingling
in extremities x 4, dyspnea, nausea, vomiting, abd pain, PUENTES.
Past History
<DENICE Pemberton - Last Filed: 05/26/24 05:36>
Past History
ED Past Medical History: CAD, CVA and NIDDM
ED Past Surgical History: Cardiac
Social History
Tobacco: Former smoker
Alcohol: Occasional
Drug: None
Personal:
Living: alone
Employment: Retired
Family History
Family History: Other (Noncontributory)
Review of Systems
<DENICE Pemberton - Last Filed: 05/26/24 05:36>
Review of Systems
Allergies reviewed?: Yes
Constitutional: Reports no symptoms
Respiratory: Reports no symptoms
Cardiac: Reports chest pain (x4 hrs); Denies diaphoresis or palpitations
ABD/GI: Denies abdominal pain, nausea or vomiting
Neurological: Denies dizzy, headache, weakness or numbness
Phy Exam
<DENICE Pemberton - Last Filed: 05/26/24 05:36>
General Physical Exam
General Presentation: well appearing and no apparent distress
General age: appears stated age
General Skin: warm and dry
General Habitus: normal and elderly
General Mental: alert
General Hydration: appears well hydrated
Scores
<DENICE Pemberton - Last Filed: 05/26/24 05:36>
Heart Score for Chest Pain Patients
STEMI patient?: No
History: Moderately Suspicious
ECG: Normal (SINUS RHYTHM WITH 1ST DEGREE A-V BLOCK; LEFT AXIS DEVIATION; RIGHT BUNDLE BRANCH BLOCK; ABNORMAL ECG WHEN COMPARED WITH ECG OF 08-APR-2024 15:07, PREMATURE VENTRICULAR COMPLEXES ARE NO LONGER PRESENT; LEFT ANTERIOR FASCICULAR BLOCK IS
NO LONGER PRESENT; QT HAS SHORTENED)
Age: >/= 65 years
Risk Factors: >/= 3 Risk Factors or History of CAD
Troponin: </= Normal Limit
Heart Score for Chest Pain Patients: 5
Heart Score Risk: 20.3% MACE over next 6 weeks
Course
<DENICE Pemberton - Last Filed: 05/26/24 05:36>
Orders/Labs/Results
Orders:
Orders
05/25/24 00:49
Electrocardiogram (*1) Urgent
Reason for Study: Chest Pain
Cardiac Monitoring- Treatment ONCE
EKG- Treatment ONCE
05/25/24 00:57
CMP [Comprehensive Metabolic Panel] Urgent
Complete Blood Count/With Diff Urgent
Troponin I Urgent
05/25/24 01:[address] Non Medication Order As Directed
Physician Order: PTT 6 hours after initial start of Heparin infusion
Above order entered?: Yes
05/25/24 01:10
Nitroglycerin 100 mg/250 ml [Nitroglycerin Premix] 100 mg in 250 ml IV NOW
Initial dose in mcg/min, then titrate:: 5
Titrate to keep:: SBP < 160 mmHg
Titrate by mcg/min:: 5 mcg/min, may increase by 10 mcg/min if dose > 20 mcg/min
Frequency of titrations (minutes):: every 3-5 minutes
Maximum dose in mcg/min:: 200
Begin to taper infusion when:: Remained at goal for 2hrs
Taper by mcg/min:: 5 mcg/min
Frequency of taper (minutes) if patient maintains goal:: 30
Taper to off?: Yes
If infusion off & no longer maintaining goal:: Contact Provider
05/25/24 01:21
PTT Urgent
Comment: Obtain baseline before beginning heparin infusion if not already collected
05/25/24 01:36
CR Chest - 2 Views Urgent
Comment:
Reason For Exam: cp
05/25/24 01:40
COVID-19 Antigen Urgent
Source: Nasal Swab
05/25/24 02:15
Heparin 48533 Units/250 ml 25,000 units in 250 ml IV PER PROTOCOL
Weight to be used for heparin protocol in kilograms (kg):: 94
Protocol:: Cardiac Tx/Acute Coronary
PTT Goal Range to be used:: PTT 73 to 111 seconds
Order type:: Initial
INITIAL Infusion Dose (UNITS/KG/hr) & then follow protocol:: 12 units/kg/hr
Infusion Dose in UNITS/hr & then follow protocol (UNITS/hr):: 1,000
INFUSION RATE in mL/hr & then follow protocol (mL/hr):: 10
PTT less than or equal to 64 seconds:: Increase rate by 200 units/hr (+ 2 mL/hr)
PTT 64.1 to 72.9 seconds:: Increase rate by 100 units/hr (+ 1 mL/hr)
PTT 73 to 111 seconds:: Target Range. No change in rate.
PTT 111.1 to 130.9 seconds:: Decrease rate by 100 units/hr (- 1 mL/hr)
PTT 131 to 199.9 seconds:: HOLD for 1 hr. Then decrease rate by 200 units/hr (- 2 mL/hr)
PTT greater than or equal to 200 seconds:: HOLD for 2 hrs & Notify Provider. Then decrease by 200 units/hr (-
2 mL/hr)
Lab follow-up:: Each change, PTT q6h until 2 consecutive are therapeutic. Then PTT
daily.
05/25/24 03:01
Admit/Transfer Patient As Directed
Co-Sign Provider:
Level of Care: Inpatient admission
Assign to:: IVU
Physician / Group: [facility]
Diagnosis: ACS
Reason for Hospitalization: ACS
Expected length of stay greater than two midnights?: Yes
ELOS- Estimated Length of Stay in days: 3
I certify the patient meets the requirements for IP care: Yes
PRN Pain Medication Management As Directed
May give lesser potent ordered pain med per pt: Yes
preference::
Protocol:: Medication orders for pain may be administered in a
manner that supports deferring to patient preference
when the pt is:
- Requesting an ordered lesser potent pain medication.
Least to most potent pain medications are defined
as: acetaminophen < NSAID < tramadol < opioids
(morphine, oxycodone, hydromorphone).
- Requesting a lesser dose of the same medication IF
ORDERED.
- Requesting a less intrusive route of administration
if both routes are prescribed by the provider (PO <
IV).
05/25/24 03:03
Code Status As Directed
Resuscitation Status: Full Code
05/25/24 05:06
Acetaminophen [Tylenol] 650 mg PO Q4HPRN PRN
Dextrose 50%-Water [Dextrose 50% Syringe] 12.5 grams IV [id number] PRN
Glucagon [GlucaGen] 1 mg IM PRN PRN
Morphine Sulfate 2 mg IV Q4HPRN PRN
Nitroglycerin 100 mg/250 ml [Nitroglycerin Premix] 100 mg in 250 ml IV PER PROTOCOL
Currently infusing. Continue current dose and titrate:: Yes
Titrate to keep:: Chest Pain Free
Titrate by mcg/min:: 5 mcg/min, may increase by 10 mcg/min if dose > 20 mcg/min
Frequency of titrations (minutes):: every 3-5 minutes
Maximum dose in mcg/min:: 200
Begin to taper infusion when:: Remained at goal for 2hrs
Taper by mcg/min:: 5 mcg/min
Frequency of taper (minutes) if patient maintains goal:: 30
Taper to off?: Yes
If infusion off & no longer maintaining goal:: Contact Provider
Nitroglycerin Sublingual [Nitrostat (Sublingual)] 0.4 mg SL [id number] PRN
Ondansetron Injectable [Zofran] 4 mg IV Q6HPRN PRN
Polyethylene Glycol Powder [Miralax] 17 grams PO DAILY PRN
Sodium Chloride [[place], Saline Mist] 1 sprays NASAL Q1HPRN PRN
05/25/24 05:06
CARDIOLOGY CONSULT Routine
Consulting Provider: Farhana Mejia
Was physician already notified: Yes
Reason for consult: ACS
Heparin Protocol- PTT Orders As Directed
PTT per Heparin protocol: -Obtain CBC and baseline PTT - if not already collected.
-Obtain PTT 6 hours from start of infusion. Then, every 6 hours until 2 consecutive
PTT's are therapeutic. Then, PTT Daily.
-With each rate change, obtain PTT every 6 hours until 2 consecutive PTT's are
therapeutic. Then, PTT Daily.
Activity As Directed
Activity Level: Bedrest
Bedside Glucose Monitoring As Directed
Frequency: AC&HS
Additional Instructions:: Change to q6h if pt on TPN, tube feeding or not eating
Bladder Scan As Directed
Follow Bladder Retention/Intermittent Cath Algorithm?: Yes
PRN if no void in __ hours: 6
Frequency: Per Retention Algorithm
If Bladder Scan Result >: 400
then:: Straight cath
EKG with chest pain [ECG as needed] As Directed
ECG as needed for:: Chest Pain
I/O [Intake/ Output] As Directed
Frequency: Per unit guidelines
Notify MD As Directed
Notify physician if: PTT is greater than or equal to 200.
Straight Cath As Directed
Frequency: Per Retention Algorithm
Additional Instructions: straight cath as needed per acute urinary retention algorithm for 24 hrs
Additional Instructions: for bladder scan greater than 400 mL
Vital Signs As Directed
Frequency: Per unit guidelines
Weight As Directed
Frequency: Daily
Oxygen Therapy [O2 Therapy] [RESP] Routine
Titrate/Wean O2 to maintain O2 sat greater than (%): 94
05/25/24 05:36
Basic Metabolic Panel IN AM
Cardiovascular Evaluation IN AM
Glycohemoglobin (HgbA1c) IN AM
Troponin I Q6H
05/25/24 06:00
EKG [Electrocardiogram (*1)] IN AM
Reason for Study: Chest Pain
NPO
Allow oral meds: Yes
Allow clear liquids: Sips of Clears
05/25/24 07:30
Insulin Aspart Corrective Low [Novolog Flexpen-Low Resistance] See Protocol SC AC
05/25/24 08:00
Aspirin Low Dose EC [Aspir Low (Enteric Coated)] 81 mg PO DAILY
Furosemide [Lasix] 40 mg IV DAILY
Metoprolol [Lopressor] 25 mg PO BID
Pantoprazole [Protonix IV] 40 mg IV DAILY
Tamsulosin [Flomax] 0.4 mg PO DAILY
05/25/24 09:02
PTT Urgent
Troponin I Q6H
05/25/24 16:23
Troponin I Q6H
05/25/24 22:00
Atorvastatin [Lipitor] 80 mg PO HS
05/27/24 06:00
Complete Blood Count/No Diff Q2D
Comment: notify provider: Platelet count < 130,000 or decrease by 50% from baseline
05/29/24 06:00
Complete Blood Count/No Diff Q2D
Comment: notify provider: Platelet count < 130,000 or decrease by 50% from baseline
05/31/24 06:00
Complete Blood Count/No Diff Q2D
Comment: notify provider: Platelet count < 130,000 or decrease by 50% from baseline
06/02/24 06:00
Complete Blood Count/No Diff Q2D
Comment: notify provider: Platelet count < 130,000 or decrease by 50% from baseline
06/04/24 06:00
Complete Blood Count/No Diff Q2D
Comment: notify provider: Platelet count < 130,000 or decrease by 50% from baseline
06/06/24 06:00
Complete Blood Count/No Diff Q2D
Comment: notify provider: Platelet count < 130,000 or decrease by 50% from baseline
06/08/24 06:00
Complete Blood Count/No Diff Q2D
Comment: notify provider: Platelet count < 130,000 or decrease by 50% from baseline
06/10/24 06:00
Complete Blood Count/No Diff Q2D
Comment: notify provider: Platelet count < 130,000 or decrease by 50% from baseline
Abnormal Lab Results
05/25/24
00:57
RBC 4.17 L 10^6/uL
(4.70-6.10)
Hgb 12.9 L g/dL
(13.0-18.0)
MCHC 32.9 L g/dL
(33.0-37.0)
MPV 11.4 H fL
(7.4-10.4)
Absolute Monos (auto) 0.8 H 10^3/uL
(0.1-0.6)
Monocytes % 11.3 H %
(1.7-9.3)
Carbon Dioxide 32 H mmol/L
(22-30)
BUN 43 H mg/dl
(9-20)
Creatinine 1.7 H mg/dL
(0.7-1.3)
Glucose 169 H mg/dl
(70-99)
Calcium 10.3 H mg/dl
(8.4-10.2)
ALT 59 H U/L
(0-50)
05/25/24 00:57
05/25/24 00:57
Vital Signs
Initial and Last Documented VS:
Initial Vital Signs
Temp Pulse Resp BP Pulse Ox
99.1 F 81 20 127/57 97
05/25/24 00:56 05/25/24 00:56 05/25/24 00:56 05/25/24 00:56 05/25/24 00:56
Last Documented Vital Signs
Temp Pulse Resp BP Pulse Ox
98.4 F 60 14 154/66 97
05/26/24 03:50 05/26/24 03:50 05/26/24 03:50 05/26/24 03:37 05/26/24 03:50
Caitlynlt;Paddy Mariee, DO - Last Filed: 05/25/24 02:28>
Orders/Labs/Results
Orders:
Orders
05/25/24 00:49
Electrocardiogram (*1) Urgent
Reason for Study: Chest Pain
Cardiac Monitoring- Treatment ONCE
EKG- Treatment ONCE
05/25/24 00:57
CMP [Comprehensive Metabolic Panel] Urgent
Complete Blood Count/With Diff Urgent
Troponin I Urgent
05/25/24 01:[address] Non Medication Order As Directed
Physician Order: PTT 6 hours after initial start of Heparin infusion
Above order entered?: Yes
05/25/24 01:10
Nitroglycerin 100 mg/250 ml [Nitroglycerin Premix] 100 mg in 250 ml IV NOW
Initial dose in mcg/min, then titrate:: 5
Titrate to keep:: SBP < 160 mmHg
Titrate by mcg/min:: 5 mcg/min, may increase by 10 mcg/min if dose > 20 mcg/min
Frequency of titrations (minutes):: every 3-5 minutes
Maximum dose in mcg/min:: 200
Begin to taper infusion when:: Remained at goal for 2hrs
Taper by mcg/min:: 5 mcg/min
Frequency of taper (minutes) if patient maintains goal:: 30
Taper to off?: Yes
If infusion off & no longer maintaining goal:: Contact Provider
05/25/24 01:21
PTT Urgent
Comment: Obtain baseline before beginning heparin infusion if not already collected
05/25/24 01:36
CR Chest - 2 Views Urgent
Comment:
Reason For Exam: cp
05/25/24 01:40
COVID-19 Antigen Urgent
Source: Nasal Swab
05/25/24 02:15
Heparin [id number] Units/250 ml 25,000 units in 250 ml IV PER PROTOCOL
Weight to be used for heparin protocol in kilograms (kg):: 94
Protocol:: Cardiac Tx/Acute Coronary
PTT Goal Range to be used:: PTT 73 to 111 seconds
Order type:: Initial
INITIAL Infusion Dose (UNITS/KG/hr) & then follow protocol:: 12 units/kg/hr
Infusion Dose in UNITS/hr & then follow protocol (UNITS/hr):: 1,000
INFUSION RATE in mL/hr & then follow protocol (mL/hr):: 10
PTT less than or equal to 64 seconds:: Increase rate by 200 units/hr (+ 2 mL/hr)
PTT 64.1 to 72.9 seconds:: Increase rate by 100 units/hr (+ 1 mL/hr)
PTT 73 to 111 seconds:: Target Range. No change in rate.
PTT 111.1 to 130.9 seconds:: Decrease rate by 100 units/hr (- 1 mL/hr)
PTT 131 to 199.9 seconds:: HOLD for 1 hr. Then decrease rate by 200 units/hr (- 2 mL/hr)
PTT greater than or equal to 200 seconds:: HOLD for 2 hrs & Notify Provider. Then decrease by 200 units/hr (-
2 mL/hr)
Lab follow-up:: Each change, PTT q6h until 2 consecutive are therapeutic. Then PTT
daily.
05/25/24 03:01
Admit/Transfer Patient As Directed
Co-Sign Provider:
Level of Care: Inpatient admission
Assign to:: IVU
Physician / Group: [facility]
Diagnosis: ACS
Reason for Hospitalization: ACS
Expected length of stay greater than two midnights?: Yes
ELOS- Estimated Length of Stay in days: 3
I certify the patient meets the requirements for IP care: Yes
PRN Pain Medication Management As Directed
May give lesser potent ordered pain med per pt: Yes
preference::
Protocol:: Medication orders for pain may be administered in a
manner that supports deferring to patient preference
when the pt is:
- Requesting an ordered lesser potent pain medication.
Least to most potent pain medications are defined
as: acetaminophen < NSAID < tramadol < opioids
(morphine, oxycodone, hydromorphone).
- Requesting a lesser dose of the same medication IF
ORDERED.
- Requesting a less intrusive route of administration
if both routes are prescribed by the provider (PO <
IV).
05/25/24 03:03
Code Status As Directed
Resuscitation Status: Full Code
05/25/24 05:06
Acetaminophen [Tylenol] 650 mg PO Q4HPRN PRN
Dextrose 50%-Water [Dextrose 50% Syringe] 12.5 grams IV [id number] PRN
Glucagon [GlucaGen] 1 mg IM PRN PRN
Morphine Sulfate 2 mg IV Q4HPRN PRN
Nitroglycerin 100 mg/250 ml [Nitroglycerin Premix] 100 mg in 250 ml IV PER PROTOCOL
Currently infusing. Continue current dose and titrate:: Yes
Titrate to keep:: Chest Pain Free
Titrate by mcg/min:: 5 mcg/min, may increase by 10 mcg/min if dose > 20 mcg/min
Frequency of titrations (minutes):: every 3-5 minutes
Maximum dose in mcg/min:: 200
Begin to taper infusion when:: Remained at goal for 2hrs
Taper by mcg/min:: 5 mcg/min
Frequency of taper (minutes) if patient maintains goal:: 30
Taper to off?: Yes
If infusion off & no longer maintaining goal:: Contact Provider
Nitroglycerin Sublingual [Nitrostat (Sublingual)] 0.4 mg SL [id number] PRN
Ondansetron Injectable [Zofran] 4 mg IV Q6HPRN PRN
Polyethylene Glycol Powder [Miralax] 17 grams PO DAILY PRN
Sodium Chloride [[place], Saline Mist] 1 sprays NASAL Q1HPRN PRN
05/25/24 05:06
CARDIOLOGY CONSULT Routine
Consulting Provider: Farhana Mejia
Was physician already notified: Yes
Reason for consult: ACS
Heparin Protocol- PTT Orders As Directed
PTT per Heparin protocol: -Obtain CBC and baseline PTT - if not already collected.
-Obtain PTT 6 hours from start of infusion. Then, every 6 hours until 2 consecutive
PTT's are therapeutic. Then, PTT Daily.
-With each rate change, obtain PTT every 6 hours until 2 consecutive PTT's are
therapeutic. Then, PTT Daily.
Activity As Directed
Activity Level: Bedrest
Bedside Glucose Monitoring As Directed
Frequency: AC&HS
Additional Instructions:: Change to q6h if pt on TPN, tube feeding or not eating
Bladder Scan As Directed
Follow Bladder Retention/Intermittent Cath Algorithm?: Yes
PRN if no void in __ hours: 6
Frequency: Per Retention Algorithm
If Bladder Scan Result >: 400
then:: Straight cath
EKG with chest pain [ECG as needed] As Directed
ECG as needed for:: Chest Pain
I/O [Intake/ Output] As Directed
Frequency: Per unit guidelines
Notify MD As Directed
Notify physician if: PTT is greater than or equal to 200.
Straight Cath As Directed
Frequency: Per Retention Algorithm
Additional Instructions: straight cath as needed per acute urinary retention algorithm for 24 hrs
Additional Instructions: for bladder scan greater than 400 mL
Vital Signs As Directed
Frequency: Per unit guidelines
Weight As Directed
Frequency: Daily
Oxygen Therapy [O2 Therapy] [RESP] Routine
Titrate/Wean O2 to maintain O2 sat greater than (%): 94
05/25/24 05:36
Basic Metabolic Panel IN AM
Cardiovascular Evaluation IN AM
Glycohemoglobin (HgbA1c) IN AM
Troponin I Q6H
05/25/24 06:00
EKG [Electrocardiogram (*1)] IN AM
Reason for Study: Chest Pain
NPO
Allow oral meds: Yes
Allow clear liquids: Sips of Clears
05/25/24 07:30
Insulin Aspart Corrective Low [Novolog Flexpen-Low Resistance] See Protocol SC AC
05/25/24 08:00
Aspirin Low Dose EC [Aspir Low (Enteric Coated)] 81 mg PO DAILY
Furosemide [Lasix] 40 mg IV DAILY
Metoprolol [Lopressor] 25 mg PO BID
Pantoprazole [Protonix IV] 40 mg IV DAILY
Tamsulosin [Flomax] 0.4 mg PO DAILY
05/25/24 09:02
PTT Urgent
Troponin I Q6H
05/25/24 16:23
Troponin I Q6H
05/25/24 22:00
Atorvastatin [Lipitor] 80 mg PO HS
05/27/24 06:00
Complete Blood Count/No Diff Q2D
Comment: notify provider: Platelet count < 130,000 or decrease by 50% from baseline
05/29/24 06:00
Complete Blood Count/No Diff Q2D
Comment: notify provider: Platelet count < 130,000 or decrease by 50% from baseline
05/31/24 06:00
Complete Blood Count/No Diff Q2D
Comment: notify provider: Platelet count < 130,000 or decrease by 50% from baseline
06/02/24 06:00
Complete Blood Count/No Diff Q2D
Comment: notify provider: Platelet count < 130,000 or decrease by 50% from baseline
06/04/24 06:00
Complete Blood Count/No Diff Q2D
Comment: notify provider: Platelet count < 130,000 or decrease by 50% from baseline
06/06/24 06:00
Complete Blood Count/No Diff Q2D
Comment: notify provider: Platelet count < 130,000 or decrease by 50% from baseline
06/08/24 06:00
Complete Blood Count/No Diff Q2D
Comment: notify provider: Platelet count < 130,000 or decrease by 50% from baseline
06/10/24 06:00
Complete Blood Count/No Diff Q2D
Comment: notify provider: Platelet count < 130,000 or decrease by 50% from baseline
Abnormal Lab Results
05/25/24
00:57
RBC 4.17 L 10^6/uL
(4.70-6.10)
Hgb 12.9 L g/dL
(13.0-18.0)
MCHC 32.9 L g/dL
(33.0-37.0)
MPV 11.4 H fL
(7.4-10.4)
Absolute Monos (auto) 0.8 H 10^3/uL
(0.1-0.6)
Monocytes % 11.3 H %
(1.7-9.3)
Carbon Dioxide 32 H mmol/L
(22-30)
BUN 43 H mg/dl
(9-20)
Creatinine 1.7 H mg/dL
(0.7-1.3)
Glucose 169 H mg/dl
(70-99)
Calcium 10.3 H mg/dl
(8.4-10.2)
ALT 59 H U/L
(0-50)
05/25/24 00:57
05/25/24 00:57
Vital Signs
Initial and Last Documented VS:
Initial Vital Signs
Temp Pulse Resp BP Pulse Ox
99.1 F 81 20 127/57 97
05/25/24 00:56 05/25/24 00:56 05/25/24 00:56 05/25/24 00:56 05/25/24 00:56
Last Documented Vital Signs
Temp Pulse Resp BP Pulse Ox
98.4 F 60 14 154/66 97
05/26/24 03:50 05/26/24 03:50 05/26/24 03:50 05/26/24 03:37 05/26/24 03:50
<DENICE Pemberton - Last Filed: 05/26/24 05:36>
MDM/Problems Addressed
Differential Diagnosis Includes:
STEMI, NSTEMI, pulmonary embolism
<DENICE Pemberton - Last Filed: 05/26/24 05:36>
*Critical Care Note
Total Time (30-74mins, 75-104mins- exclusive of procedures): Not Applicable
ED Attending Note
<DENICE Pemberton - Last Filed: 05/26/24 05:36>
-
Portions of this chart may have been created with voice recognition software.� Occasional wrong word or��sound alike� substitutions may have occurred due to the inherent limitations of voice recognition software.
<Paddy Mariee DO - Last Filed: 05/25/24 02:28>
ED Attending Note
Patient seen and examined by attending physician: Yes
I performed the substantive portion of visit, reviewed & personally made and approve the management plan that is documented in note by myself or ALLI.: Yes
ED Attending Note:
78-year-old male brought in by EMS for chest pain for the last 4 hours. He states he was sitting at his desk at home when the pain started. Initially the pain was 8 out of 10 he took some nitroglycerin which provided minimal relief. He called 911
who gave him additional nitroglycerin and asked. Upon arrival, patient stated that his pain was 2 out of 10. Patient was seen by his tree feller operator Dr. Velázquez today. He stated that he was supposed to schedule an echo and a stress test. Patient
reports not having been able to schedule those because the chest pain came on this afternoon that prevented him scheduling those tests. Patient reports no other complaints at this time. He denies any radiation of symptoms. He states that coughing
and movement of his chest exacerbates his symptoms. Patient was seen in conjunction with the PA student. I have reviewed and agree with the history and treatment plan presented. On my independent physical exam, patient is awake, alert, and
oriented x3, minimal to moderate acute distress. Heart is regular rate and rhythm. Lungs are clear bilaterally without wheezes rales or rhonchi. Abdomen is soft nontender nondistended moves all [address] Del Valle, diagnostic tree feller operator and Dr. [place] crop and soil technician. At this point we are heparinizing the patient and giving him nitro for pain relief. Troponins to be trended. Patient to be brought into the hospital for
further evaluation.
Discharge Plan
Departure
Patient Disposition: Admit
Date of Disposition: 05/25/24
Time of Disposition: :27
Admit to: IVU
Presentation/result/management discussed w/ accepting MD/DO: Hospitalist
Condition: Fair
Discharge Problem:
Chest pain
Interventions
Interventions:
*Risk Screen - Suicide Last Done: 05/25/24 00:56
*General Assessment Last Done: 05/25/24 00:56
*Neglect/Abuse Screening Last Done: 05/25/24 00:56
ED- Fall Risk Assessment Last Done: 05/25/24 01:02
*ED COVID-19 Vaccine History Last Done: 05/25/24 00:56
*Nursing Disposition Last Done: 05/25/24 04:41
ED- Cardiac Assessment Last Done: 05/25/24 01:02
Discharge Date and Time
Discharge Date/Time: 05/25/24 04:42
[2024-05-25 01:16] LABS: ALT (SGPT) 59 U/L (0-50); AST (SGOT) 37 U/L (17-59); Alkaline Phosphatase 55 U/L (38-126); Blood Urea Nitrogen 43 mg/dl (9-20); Calcium 10.3 mg/dl (8.4-10.2); Carbon Dioxide 32 mmol/L (22-30); Chloride 102 mmol/L (98-107); Estimated Creatinine Clearance 40 ml/min; Glucose 169 mg/dl (70-99); Potassium 4.3 mmol/L (3.5-5.1); Sodium 141 mmol/L (135-145); Total Bilirubin 0.3 mg/dl (0.2-1.3); Total Protein 6.5 g/dl (6.3-8.2); eGFR 41.01
[2024-05-25] MEDS: NITROGLYCERIN PREMIX 250 IV (01:23)
[2024-05-25 01:26] LABS: Troponin I < 0.012 ng/ml
[2024-05-25 01:38] LABS: APTT 30.3 Sec (23.4-35.0)
[2024-05-25 02:00] LABS: COVID-19 Antigen Negative (Negative)
[2024-05-25] MEDS: HEPARIN 25000 UNITS/250 ML IV ×2 (02:13→21:22)
--- NOTE | 2024-05-25 03:06 | HPS.HSE ---
Family Physician
-
Family Physician: Randy Miles
Chief Complaint
-
Chest Pain
History of Present Illness
Patient is a 78y M with PMH significant for ASCVD, HFpEF and DM-II who presents to ED complaining of chest pain. Patient was previously admitted here for UTI / weakness / falls. He was discharged to SNF and notes that he has been home for about
two weeks now. One week ago he noted some discomfort in his chest. This seemed to improve with TUMS. He was seen by his PCP in the interim and then seen by his Customer Care Associate earlier today for evaluation. Patient was advised to schedule an
outpatient stress test and Echo.
This evening, following a large dinner, patient developed sudden onset of sharp and severe substernal chest pain.
Patient states that pain did not radiate into the neck, arms or back. No associated nausea, lightheadedness, diaphoresis or SOB.
Patient again took some TUMS - but with only minimal improvement in his pain. Then, when he stood up his pain became much worse.
Patient took NTG at home x 2 with no relief and then called 911.
At the time of my examination, patient is resting comfortably in no distress. He has no pain at rest and no other complaints at this time.
Medical History
Past Medical History
Past Medical History: Reports Other
Additional Past Medical History:
ASCVD
CVA with Right Hemiparesis
HFpEF
Hypertension
CKD III
DM-II with Retinopathy and CKD
Thyroid Nodule (benign biopsy)
Obesity
Past Surgical History: Reports Other
Additional Past Surgical History:
CABG x 3 (2009)
Hemorrhoidectomy
Cataracts
Social History
Tobacco: Former Smoker ([id number] 2 to 3 pack a day. 1993)
Alcohol: Occasional (1 beer on Saturdays)
Drug: None
Personal:
Living: Alone
Employment: Retired
Family History
Family History: Other (Father failure to thrive, mother 'liver issues,')
Allergies / Home Medications
Allergies reflects when Allergies were last updated in [employer]
Home Medications with original date entered in [employer]
Allergy/Medication List:
Allergies
Allergy/AdvReac Type Severity Reaction Status Date / Time
pioglitazone [From Actos] Allergy Unknown Verified 05/25/24 01:00
Home Medications
acetaminophen 650 mg tablet,extended release (Pain Relief (acetaminophen)) 1,300 mg PO TIDPRN PRN mild pain 03/09/10
metformin 1,000 mg tablet 500 mg PO BID Diabetes 06/27/12
metoprolol tartrate 25 mg tablet 25 mg PO BID ##60 01/16/14
phenylephrine HCl 1 % nasal spray (Nasal Four) 1 spray NS Q1HPRN PRN congestion 02/07/14
aspirin 81 mg tablet,delayed release 81 mg PO DAILY Blood clot prevention/tx 08/11/16
atorvastatin 80 mg tablet 80 mg PO HS High cholesterol 08/11/16
guaifenesin 400 mg tablet 400 mg PO HS Cough 08/11/16
melatonin 10 mg tablet 10 mg PO HS Sleep 08/11/16
furosemide 40 mg tablet (Lasix) 20 mg PO DAILY Fluid retention/Swelling 01/09/21
glipizide 5 mg tablet 5 mg PO DAILY Diabetes 01/09/21
tamsulosin 0.4 mg capsule 0.4 mg PO DAILY #30 caps 01/11/21
lisinopril 10 mg-hydrochlorothiazide 12.5 mg tablet 1 tab PO DAILY Blood Pressure 04/08/24
polyethylene glycol 3350 17 gram oral powder packet (Miralax) 17 g PO DAILY Constipation 04/08/24
propylene glycol 0.6 % eye drops (Systane Balance) 1 drp BOTH EYES HSPRN PRN dry eyes 04/08/24
psyllium husk 3.4 gram/5.4 gram oral powder (Metamucil) 2 tbsp PO DAILY Constipation 04/08/24
salicylic acid 3 % shampoo (DHS Hay) 1 applic topical .2-3X WEEKLY scalp rash 04/08/24
ascorbic acid (vitamin C) 500 mg tablet (Vitamin C) 500 mg PO DAILY 05/25/24
loratadine 10 mg tablet (Claritin) 10 mg PO DAILY 05/25/24
Review of Systems
-
History Source: Patient
A 12 point ROS was completed and negative except as noted: Yes
Constitutional: Denies Fever or Chills
Respiratory: Denies Cough or Trouble Breathing
Cardiac: Reports Chest Pain; Denies Diaphoresis, Palpitations or Syncope
Abdomen/GI: Denies Abdominal Pain, Nausea, Vomiting or Diarrhea
: Denies Dysuria or Frequency
Musculoskeletal: Reports Edema; Denies Joint Pain
Neurological: Denies Dizzy or Headache
Psych: Denies Depression or Anxiety
Physical Exam
Vital Signs
Vital Signs
Temp Pulse Resp BP Pulse Ox
99.1 F 73 11 141/129 99
05/25/24 00:56 05/25/24 01:40 05/25/24 01:40 05/25/24 01:40 05/25/24 01:40
Physical Exam
General: Other (78y M in no acute distress.)
HEENT: Moist mucous membranes and PERRLA
Respiratory: Clear; No Wheezes, Rales or Rhonchi
Cardiac: S1/S2 (distant S1 S2.); No Murmur
GI: Soft, Non Tender, Non Distended and Normal Bowel Sounds
Musculoskeletal: No Clubbing, No Cyanosis and Other (+ pitting edema b/l LEs.)
Neuro: AO x 3
Laboratory Results
-
05/25/24 00:57
05/25/24 00:57
Laboratory Results
APTT 30.3 Sec (23.4-35.0) 05/25/24 01:21
Total Bilirubin 0.3 mg/dl (0.2-1.3) 05/25/24 00:57
AST 37 U/L (17-59) 05/25/24 00:57
ALT 59 U/L (0-50) H 05/25/24 00:57
Alkaline Phosphatase 55 U/L (38-126) 05/25/24 00:57
Troponin I < 0.012 ng/ml 05/25/24 00:57
Impression/Plan
-
A/P: Patient is a 78y M with PMH significant for ASCVD, HTN and DM-II who presents to ED complaining of chest pain.
Chest Pain / ACS
ASCVD
- Admit to IVU for further evaluation and treatment.
- Some chest discomfort for one week - but new / different / more severe acute pain this evening.
- EKG with ST changes inferiorly concerning for active ischemia.
- ED reviewed tracings / clinical presentation with Cardiology who recommend medial management at this time.
- IV Heparin, IV NTG, ASA, statin, etc.
- Follow for any new / recurrent symptoms.
- Follow serial troponin (initial set was undetectable).
- Further treatment recommendations per Cardiology.
Chronic HFpEF - Perhaps mild acute component.
- Some increase in edema since his return home.
- Weight is also up - but patient notes that he was previously below his usual baseline
- IV Lasix daily for now.
- Follow I/Os, daily weights, etc.
Benign Hypertension
- Stable. Continue home med regimen.
DM-II
- Stable. Patient reports excellent recent control.
- Hold oral meds acutely.
- Follow glucose and cover with SSI as needed.
CKD III
- Stable. Renal function is at / near known baseline.
- Follow for changes.
DVT Prophylaxis: On IV Heparin
Code Status: Full
--- NOTE | 2024-05-25 06:05 | PTCARENOTE ---
Received pt from ER into room 2246. Pt AAOx3 SR on the monitor denies CP on Hep gtt @ 1000 units/HR Ntg @ 5 mcg. Pt instructed on unit policies and call garcia. Fall precautions maintained.
[2024-05-25 06:13] LABS: Troponin I < 0.012 ng/ml
[2024-05-25 06:29] LABS: Blood Urea Nitrogen 41 mg/dl (9-20); Calcium 10.5 mg/dl (8.4-10.2); Carbon Dioxide 28 mmol/L (22-30); Chloride 106 mmol/L (98-107); Estimated Creatinine Clearance 40 ml/min; Glucose 152 mg/dl (70-99); HDL Cholesterol 48 mg/dl; LDL Cholesterol, Calculated 61 mg/dl; Potassium 3.9 mmol/L (3.5-5.1); Sodium 144 mmol/L (135-145); Total Cholesterol 124 mg/dl (50-199); Triglyceride 76 mg/dl (10-149); Very Low Density Lipoprotein 15 mg/dl (0-30); eGFR 41.01
[2024-05-25 07:32] LABS: Glucose - Point of Care 107 mg/dl (70-99)
[2024-05-25 09:04] LABS: Glycohemoglobin (HgbA1c) 6.3 % (4.0-5.6)
[2024-05-25] MEDS: ASPIR LOW (ENTERIC COATED) 81 MG PO (09:17)
[2024-05-25] MEDS: NSS (PRESERVATIVE FREE) 10 ML IV (09:17)
[2024-05-25] MEDS: PROTONIX IV 40 MG IV (09:17)
[2024-05-25] MEDS: LOPRESSOR 25 MG PO ×2 (09:18→21:12)
[2024-05-25] MEDS: LASIX 40 MG IV (09:18)
[2024-05-25] MEDS: FLUSH (NSS) 3 FLUSH IV (09:18)
[2024-05-25] MEDS: FLOMAX 0.4 MG PO (09:18)
[2024-05-25 09:33] LABS: APTT 65.2 Sec (23.4-35.0)
[2024-05-25 09:45] LABS: Troponin I < 0.012 ng/ml
[2024-05-25 11:48] LABS: NT-proBNP 484 pg/ml
[2024-05-25 12:30] LABS: Glucose - Point of Care 84 mg/dl (70-99)
--- NOTE | 2024-05-25 13:23 | W.PN.HOSP.TC ---
Today's Communication/Plan
-
See plan
Assessment / Plan
Assessment / Plan
Impression:
Patient is a 78y M with PMH significant for ASCVD, HTN and DM-II who presents to ED complaining of chest pain.
Chest pain with concern for acute coronary syndrome
� ASCVD with history of CABG.
Other conditions:
Chronic CHF preserved EF
Essential hypertension
Diabetes type 2
CKD stage III obesity with BMI of 32
Plan:
Midsternal chest pain worsening with exertion with concern for acute coronary syndrome and patient with known CAD status post CABG.
ECG with no acute changes suggestive of ischemia.
Cardiac markers remained negative.
Initiated on IV heparin and IV nitroglycerin.
Continue aspirin) beta-karmen, statin, morphine
Echocardiogram
Cardiology consultation with possible ischemic evaluation
Chronic CHF preserved EF
Updated echocardiogram is pending.
Stable respiratory status baseline chest x-ray with no evidence of pulmonary edema.
Hold Lasix for now and monitor closely
Benign Hypertension
- Hold HCTZ and MARITZA inhibitor acutely.
DM-II
Hemoglobin A1c 6.3
- Stable. Patient reports excellent recent control.
- Hold oral meds acutely.
- Follow glucose and cover with SSI as needed.
CKD III
- Stable. Renal function is at / near known baseline.
- Follow for changes.
DVT Prophylaxis: On IV Heparin
Code Status: Full
Anticipated Discharge: 24 - 48 hours
Subjective/Interval History
-
Date of Service: May 25, 2024
Objective Data
-
Labs:
Laboratory Results
05/25/24 05/25/24 05/25/24
01:21 05:36 09:02
APTT 30.3 65.2 H
Sodium 144
Potassium 3.9
Chloride 106
Carbon Dioxide 28
BUN 41 H
Creatinine 1.7 H
Glucose 152 H
Calcium 10.5 H
05/25/24
15:55
APTT Pending
Sodium
Potassium
Chloride
Carbon Dioxide
BUN
Creatinine
Glucose
Calcium
Vital Signs:
Vital Signs
Temp Pulse Resp BP Pulse Ox
97.5 F 60 18 126/63 99
05/25/24 12:32 05/25/24 12:45 05/25/24 12:32 05/25/24 12:27 05/25/24 12:32
I&O
05/24/24 05/25/24 05/26/24
06:59 06:59 06:59
Intake Total 0 / 0 60 / 60
Output Total 200 / 200 100 / 100
Balance -200 / -200 -40 / -40
Physical Exam
-
General: No Apparent Distress and Comfortable
HEENT: Negative Oxygen
Respiratory: Clear to Auscultation
Cardiac: Regular Rhythm and S1/S2; Negative Murmur or Rub
GI: Soft, Nontender, Nondistended and Normal Bowel Sounds
Musculoskeletal: No Edema
Neuro: Awake, Alert, Oriented, No Motor Deficits and Nonfocal/Grossly Intact
Psych: Calm
--- NOTE | 2024-05-25 13:40 | CARDSERVLU ---
Echocardiogram with [facility] completed after protocol screening completed. Allergies verified.
Patent IV site: _R FA____
IV site flushed with 0.9% NaCl pre and post administration.
Diluted bolus method utilized to enhance visualization of ventricular degroot.
Total volume given: _1.5___ mL
Patient tolerated all procedures well without complications.
--- NOTE | 2024-05-25 13:41 | CON.CAR ---
Addendum entered and electronically signed by Roger Lord MD 05/25/24 15:51:
I saw and examined the patient.
The TANK WAGON DRIVER's note was reviewed and I agree with the note.
Comment: Given his extensive cardiac history we will proceed with a stress test. I would favor a 3-4 month trial of a PPI and elective GI evaluation, especially if our stress test is negative. His edema is lymphedema and he has not be using his
lymphedema boots that he has at home. I encouraged him to use his lymphedema boots when he gets back home.
Original Note:
Consultation
Consultation Request
Date/Time Consultation Requested: 05/25/24 1776
Date/Time Consultation Performed: 05/25/24 1330
Requesting Provider: Dr. Victor
Performing Provider: Shea COLEY for Dr. Lord
Reason for Consultation: Chest discomfort
Medical History
-
Chief Complaint: chest discomfort
History of Present Illness:
78 y/o male with CAD s/ CABG 2013, hypertension, dyslipidemia, RBBB, LAFB, DM2, obesity, hx CVA, and GERD who is here for evaluation of chest discomfort. He saw Dr. Bal yesterday in the office and stress test and echo were ordered since he has
been having chest discomfort for about 1 week. His chest discomfort has been intermittent and typically noted after eating. Tums has generally helped. However, last night around 6 PM after eating spaghetti and meatballs in red sauce, as well as
pumpkin walnut cake, he was sitting at his computer and developed a sharp midsternal pain. There was no nausea, diaphoresis, SOB, or radiation. He took tums, which did not help, then took nitro x 2, which did not help. The pain lasted for hours. In
the ER, he was placed on nitro and heparin drips. Trops have been normal and EKG's are stable overall to my review. He has no CP at the time of my assessment. He has chronic LE edema and has been told this is lymphedema. No recent increased in edema
or weight and no SOB. He had pain this AM, but it was worse with coughing/position change. None currently.
Past Medical History
Past Medical History: CAD, CVA, GERD, Hypercholesterolemia and NIDDM
Social History
Tobacco: Former Smoker
Alcohol: None
Family History
Family History: Reviewed & Not Pertinent
Allergies / Home Medications
Allergy/AdvReac Type Severity Reaction Status Date / Time
pioglitazone [From Actos] Allergy Unknown Verified 05/25/24 01:00
�Medication �Instructions �Recorded �Confirmed �Type
acetaminophen 650 mg 1,300 mg PO TIDPRN PRN mild pain 03/09/10 05/25/24 History
tablet,extended release (Pain
Relief (acetaminophen))
metformin 1,000 mg tablet 500 mg PO BID Diabetes 06/27/12 05/25/24 History
metoprolol tartrate 25 mg tablet 25 mg PO BID ##60 01/16/14 05/25/24 Rx
phenylephrine HCl 1 % nasal spray 1 spray NS Q1HPRN PRN congestion 02/07/14 05/25/24 History
(Nasal Four)
aspirin 81 mg tablet,delayed 81 mg PO DAILY Blood clot 08/11/16 05/25/24 History
release prevention/tx
atorvastatin 80 mg tablet 80 mg PO HS High cholesterol 08/11/16 05/25/24 History
guaifenesin 400 mg tablet 400 mg PO HS Cough 08/11/16 05/25/24 History
melatonin 10 mg tablet 10 mg PO HS Sleep 08/11/16 05/25/24 History
furosemide 40 mg tablet (Lasix) 20 mg PO DAILY Fluid 01/09/21 05/25/24 History
retention/Swelling
glipizide 5 mg tablet 5 mg PO DAILY Diabetes 01/09/21 05/25/24 History
tamsulosin 0.4 mg capsule 0.4 mg PO DAILY #30 caps 01/11/21 05/25/24 Rx
lisinopril 10 1 tab PO DAILY Blood Pressure 04/08/24 05/25/24 History
mg-hydrochlorothiazide 12.5 mg
tablet
polyethylene glycol 3350 17 gram 17 g PO DAILY Constipation 04/08/24 05/25/24 History
oral powder packet (Miralax)
propylene glycol 0.6 % eye drops 1 drp BOTH EYES HSPRN PRN dry eyes 04/08/24 05/25/24 History
(Systane Balance)
psyllium husk 3.4 gram/5.4 gram 2 tbsp PO DAILY Constipation 04/08/24 05/25/24 History
oral powder (Metamucil)
salicylic acid 3 % shampoo (DHS 1 applic topical .2-3X WEEKLY 04/08/24 05/25/24 History
Hay) scalp rash
ascorbic acid (vitamin C) 500 mg 500 mg PO DAILY 05/25/24 05/25/24 History
tablet (Vitamin C)
loratadine 10 mg tablet (Claritin) 10 mg PO DAILY 05/25/24 05/25/24 History
Review of Systems
-
History Source: Patient
All other systems: Negative unless noted
Cardiac: Chest Pain
Physical Exam
Vital Signs
Temp Pulse Resp BP Pulse Ox
97.5 F 60 18 126/63 99
05/25/24 12:32 05/25/24 12:45 05/25/24 12:32 05/25/24 12:27 05/25/24 12:32
Lab Results
05/25/24 00:57
05/25/24 05:36
Troponin I < 0.012 ng/ml 05/25/24 09:02
Eip-A-Flxpgasxarj Pept 484 pg/ml 05/25/24 09:02
Physical Exam
General: Well Developed, Well Nourished and No Apparent Distress
HEENT: Normocephalic and Anicteric
Respiratory: Clear and Non Labored Respirations
Cardiac: Regular Rhythm
Musculoskeletal: Edema (mild- moderate BLE edema)
Skin: Warm and Dry
Neuro: AO x 3
Psych: Calm
Impression / Plan
-
Chest pain: None currently
-etiology unclear. Some sounds GI and he is on PPI. Some sounds MSK (worse with cough, movement, 'bouncing around ambulance'). However, he has significant cardiac history and need to r/o progressive CAD as cause. Trops and EKG's are okay. Echo
pending, but preliminary result no major abnormalities.
-plan for stress test in AM (Lexiscan)
-agree with PPI, which has been added
-currently on nitro and heparin drips, which require intensive monitoring. We will continue for now, but I am not sure necessary to continue through the night and I will discuss with Dr. Lord
CAD with hx CABG:
-continue ASA, statin, and BB
RBBB: chronic and stable
HTN:
-stable
DM2:
-diabetic diet, follow sugars
LE edema:
-patient tells me he has been diagnosed with lymphedema in the past
-Dr. Bal prescribed him increased dose lasix as OP
-he denies SOB, CXR is stable, and I do not suspect CHF. I will transition back to PO lasix.
Data Reviewed
-
EKG: Tracing Personally Visualized and interpreted (SR with RBBB)
Radiology: Report Reviewed by me (No acute cardiopulmonary process.)
Medical Tests (Nuc Med, Echo etc): Report Reviewed by me (echo 08/19/2018: Normal left ventricular systolic function. Left ventricular ejection fraction is 55-60%. Trace mitral regurgitation.)
Labs: Labs Reviewed by me
[2024-05-25 14:43] LABS: Glucose - Point of Care 92 mg/dl (70-99)
--- NOTE | 2024-05-25 14:47 | CM ---
Addendum entered by ERMELINDA Chadwick 05/25/24 16:41:
[facility] able to accept for resumption of care.
Original Note:
CM following for DC planning needs.
Met w/ patient at bedside to complete initial assessment.
Pt. had recent admission to in March. He was DCed to SNF @ [facility] and discharged to home, 04/27 with home-care thru [facility].
I called [facility] and confirmed that patient is open for services.
At baseline, patient resides alone in a private, 1 story home. He is functionally indep. at baseline w/ ADLs, mobility without the use of any assisted device.
Plan is for return to home with resumption of services thru [facility].
I initiated referral to [facility] for [facility].
[2024-05-25 16:54] LABS: APTT 94.6 Sec (23.4-35.0)
[2024-05-25 17:19] LABS: Troponin I < 0.012 ng/ml
[2024-05-25 18:25] LABS: Glucose - Point of Care 151 mg/dl (70-99)
[2024-05-25] MEDS: LIPITOR 80 MG PO (21:12)
[2024-05-25 22:15] LABS: Glucose - Point of Care 113 mg/dl (70-99)
[2024-05-25 22:46] LABS: APTT 99.7 Sec (23.4-35.0)
[2024-05-26] VITALS (8 sets, daily range): BP systolic 114–161; BP diastolic 59–79; BMI 31.4
[2024-05-26] MEDS: TYLENOL 650 MG PO (00:07)
--- NOTE | 2024-05-26 01:36 | PTCARENOTE ---
Assumed care of the pt @ 1900. Pt is AAOx3 SB with 1st degree HB on the monitor. Infusing Heparin gtt @ 1100 units/HR Nitro gtt @ 5mcgs. denies CP. VSS Pt c/o mild headache Tylenol given with relief. NPO after midnight for Stress Test.
[2024-05-26 04:21] LABS: APTT 125.1 Sec (23.4-35.0)
[2024-05-26 04:26] LABS: Blood Urea Nitrogen 36 mg/dl (9-20); Carbon Dioxide 32 mmol/L (22-30); Chloride 101 mmol/L (98-107); Estimated Creatinine Clearance 40 ml/min; Glucose 88 mg/dl (70-99); Potassium 4.1 mmol/L (3.5-5.1); Sodium 144 mmol/L (135-145); eGFR 41.01
[2024-05-26 05:27] LABS: APTT 93.6 Sec (23.4-35.0)
[2024-05-26] MEDS: PROTONIX IV 40 MG IV (07:24)
[2024-05-26] MEDS: NSS (PRESERVATIVE FREE) 10 ML IV (07:25)
[2024-05-26] MEDS: ASPIR LOW (ENTERIC COATED) 81 MG PO (07:25)
[2024-05-26 07:39] LABS: Glucose - Point of Care 77 mg/dl (70-99)
[2024-05-26] MEDS: LASIX PO (08:00)
--- NOTE | 2024-05-26 08:39 | VNURNOTE ---
Chart reviewed. Patient is current with [facility] nursing, PT. Will continue to follow hospital course and DC plans.
[2024-05-26] MEDS: LEXISCAN 0.4 MG IV (10:23)
--- NOTE | 2024-05-26 10:34 | W.PN.CD ---
Addendum entered and electronically signed by Darion Torres MD 05/26/24 11:28:
78 yo male with PMH of CAD/CABG admitted with chest pain with both typical and atypical features. Currently chest pain free. Exam with RRR, no murmurs, no edema. TnI <0.012 x4. EKG with SR, 1st degree AVB, RBBB. Echo: EF 65-70%, no sig valve
disease.
Will proceed to nuclear stress test today. Plan to be determined based on results.
Original Note:
Today's Communication / Plan
-
Stress test today
Impression / Plan
-
Chest pain: none currently
-Trops and EKG's are okay.
-Echo 05/25/24: Left ventricular ejection fraction is 65-70%. Wall motion is consistent with conduction abnormality. Normal right ventricular size and function. No significant valvular disease.
-Lexiscan stress test today to assess for progressive CAD
-some of this sounds GI related and he is on IV PPI to be transitioned to PO at d/c.
-nitro now held for stress test and and heparin drip remains. Can stop both if stress is normal- await results.
CAD with hx CABG:
-continue ASA, statin, and BB
RBBB: chronic and stable
HTN:
-stable overall
DM2:
-diabetic diet, follow sugars
LE edema:
-patient tells me he has been diagnosed with lymphedema in the past and will wear his boots at home
-Dr. Bal prescribed him increased dose lasix as OP 40 mg daily, which he can continue on for now- needs monitor renal functio over time
Physical Exam
Vital Signs/Labs
Vital Signs
Temp Pulse Resp BP Pulse Ox
97.8 F 63 20 135/65 93
05/26/24 07:18 05/26/24 07:30 05/26/24 07:18 05/26/24 07:21 05/26/24 07:18
05/25/24 05/26/24 05/27/24
06:59 06:59 06:59
Actual Weight 97.1 kg 93.7 kg
05/25/24 00:57
05/26/24 03:45
APTT 93.6 Sec (23.4-35.0) H 05/26/24 04:43
Triglycerides 76 mg/dl (10-149) 05/25/24 05:36
LDL Cholesterol, Calc 61 mg/dl 05/25/24 05:36
VLDL Cholesterol, Calc 15 mg/dl (0-30) 05/25/24 05:36
HDL Cholesterol 48 mg/dl 05/25/24 05:36
05/25/24
09:02
Fnc-A-Jbydaolyacp Pept 484
LAB Results
05/25/24 05/25/24 05/25/24
00:57 05:36 09:02
Troponin I < 0.012 < 0.012 < 0.012
05/25/24
16:23
Troponin I < 0.012
Physical Exam
Constitutional: No acute distress
EENT: Anicteric
Cardiovascular: Rhythm & rate is regular
Respiratory: Respiratory effort normal and Lungs clear to auscul.
Neuro/Psych: AO x 3
Data Reviewed
-
Date of Service: May 26, 2024
EKG: Other (tele SR)
Labs: Labs Reviewed by me
[2024-05-26] MEDS: AMINOPHYLLINE 75 MG IV (10:45)
--- NOTE | 2024-05-26 11:58 | PTCARENOTE ---
Report given to Nona on IVU, pt tolerated Lexiscan Stress well. Refer to Cardiac Monitoring Record for complete details and assessment. Pt under Nuclear camera at present.
--- NOTE | 2024-05-26 12:07 | PTCARENOTE ---
Pt taken for nuclear stress test @07:35. Accucheck prior to this 77, pt asymptomatic but given 4 OZ orange juice. Pt aware of signs and symptoms to report if his blood sugar drops. Pt also given juice and crackers post nuclear stress test per
report. pt remains asymptomatic.
[2024-05-26 12:30] LABS: Glucose - Point of Care 128 mg/dl (70-99)
[2024-05-26] MEDS: ASPIRIN 325 MG PO (12:48)
[2024-05-26] MEDS: LOPRESSOR 25 MG PO ×2 (12:48→21:35)
[2024-05-26] MEDS: FLOMAX 0.4 MG PO (12:48)
--- NOTE | 2024-05-26 14:10 | CM ---
CM following for DC planning needs.
DC plan reviewed for home w/ [facility].
Will follow.
--- NOTE | 2024-05-26 14:41 | ITS.CL.CATH ---
Electronics Utility Worker - Catheterization
Cardiac Catheterization
Procedure Report:
CARDIAC CATHETERIZATION REPORT
Date of Procedure: 05/26/2024
Referring: Darion Torres M.D., Ph.D.
INDICATION: Chest discomfort, known coronary artery disease status post CABG, abnormal stress test.
PROCEDURE:
1. Left heart catheterization.
2. Coronary angiography.
3. Bypass angiography.
ACCESS:
6 [place] right common femoral artery using a modified Seldinger technique with a micropuncture kit under ultrasound guidance.
CATHETERS:
1. 5 [place] JL 4.
2. 5 [place]ian JR4.
3. 5 [place]ian PEARL.
HEMODYNAMIC DATA
Weight (kg): 93.4
AO (s/d/x, mmHg): 186/82/123
LV (s/x mmHg): 186/21
LEFT VENTRICULOGRAPHY: Not performed.
CORONARY ANGIOGRAPHY
Dominance: Right.
Left Main: Large size, bifurcating vessel. There is a 90% lesion in the distal aspect of the vessel leading into the origins of the LAD and circumflex.
LAD: Normal size vessel giving rise to 1 significant diagonal. There is an 80-90% lesion at the origin of the vessel extending from the left main coronary artery. There is a 50-60% lesion in the mid/distal LAD around the MAX anastomosis.
Ramus: Congenitally absent.
Circumflex: Large size, nondominant vessel giving rise to 3 obtuse marginals. The [place] circumflex is occluded in its proximal margin down to the level of the second obtuse marginal, including the first obtuse marginal. OM 2 and OM 3 are
supplied by a patent vein graft.
RCA: Small size, dominant vessel. There is no coronary artery disease.
BYPASS GRAFT ANGIOGRAPHY
MAX to LAD: Normal size graft with end-to-side anastomosis in the mid to distal LAD. There is some significant tortuosity in the distal aspect of the mid graft. There is a 60% stenosis in the distal graft as well as a more diffuse 50% lesion of
the terminal graft leading into the LAD.
SVG to OM2 to OM3: Normal size graft with [id number] anastomosis to OM 2 and end-to-side anastomosis to OM 3. There is no evidence of stenosis or graft degeneration.
INTERVENTION(S)
None.
Closure Device: 6 [place] Angio-Seal to the right common femoral artery.
Radiation (mGy): 567.01
DAP (cm2.Gy): 40.6362
Fluoroscopy time (minutes): 5.6
Sedation time (minutes): 46
CONCLUSIONS
1. Right dominant circulation with a small RCA, and 90% lesion in the distal aspect of the left main leading into an 80-90% lesion in the origin of the LAD and a chronic total occlusion of the proximal circumflex to the level of OM 2, status post
prior three-vessel bypass (patent MAX to LAD with a 60% stenosis in the distal graft followed by a longer, 50% lesion in the terminal graft leading into the LAD with associated 50-60% LAD lesion, patent sequential SVG to OM2 to OM3 without
significant disease).
2. Moderately elevated filling pressures (LVEDP = 21 mmHg at 93.4 kg).
3. There is lack of competitive flow in the LAD in spite of a severe stenosis in the distal left main/ostial LAD and a patent bypass graft. It is difficult to discern if lack of competitive flow is due to more brisk stenosis than is
physiologically perceived or if the stenosis within the MAX graft has become severe enough so that the flow from the [place] vessel has become competitive in spite of the left main stenosis.
RECOMMENDATIONS:
1. Expectant management after cardiac catheterization via right common femoral approach.
2. Limited weight bearing for one week.
3. Up titration of medical therapy, including aggressive blood pressure control and addition of long-acting nitrates.
4. Close outpatient observation. If the patient were to continue to have symptoms and spite of aggressive antianginal therapy, he would be a reasonable candidate for orbital atherectomy and PCI of the left main into LAD. This would potentially
render the MAX graft atretic, but appears to be a more attractive target than intervention on the MAX graft itself given the severe tortuosity of the mid graft and the length of stent required.
5. Agree with increase in furosemide to 40 mg daily.
Copy to: Darion Torres M.D., Ph.D., Randy Miles M.D., Scar Bal M.D.
Puneet Beltre DO, FACC, FACP
--- NOTE | 2024-05-26 15:23 | W.PN.HOSP.TC ---
Today's Communication/Plan
-
Stress test consistent with ischemia at LAD territory.
Left heart cath
Assessment / Plan
Assessment / Plan
Impression:
Patient is a 78y M with PMH significant for ASCVD, HTN and DM-II who presents to ED complaining of chest pain.
Chest pain with concern for acute coronary syndrome
� ASCVD with history of CABG.
Other conditions:
Chronic CHF preserved EF
Essential hypertension
Diabetes type 2
CKD stage III obesity with BMI of 32
Plan:
Midsternal chest pain worsening with exertion with concern for acute coronary syndrome and patient with known CAD status post CABG.
ECG with no acute changes suggestive of ischemia.
Cardiac markers remained negative.
Initiated on IV heparin and IV nitroglycerin.
Continue aspirin) beta-karmen, statin, morphine
Echocardiogram LVEF 65-70%. Wall motion consistent with conduction abnormality
Stress 05/26 with reversible ischemia in the LAD territory
Left heart cath pending
Chronic CHF preserved EF
Updated echocardiogram as above
Stable respiratory status baseline chest x-ray with no evidence of pulmonary edema.
Hold Lasix for now and monitor closely
Benign Hypertension
- Hold HCTZ and MARITZA inhibitor acutely.
DM-II
Hemoglobin A1c 6.3
- Stable. Patient reports excellent recent control.
- Hold oral meds acutely.
- Follow glucose and cover with SSI as needed.
CKD III
- Stable. Renal function is at / near known baseline.
- Follow for changes.
DVT Prophylaxis: On IV Heparin
Code Status: Full
Anticipated Discharge: 24 - 48 hours
Subjective/Interval History
-
Date of Service: May 26, 2024
Objective Data
-
Labs:
Laboratory Results
05/26/24 05/26/24
03:45 04:43
APTT 125.1 H 93.6 H
Sodium 144
Potassium 4.1
Chloride 101
Carbon Dioxide 32 H
BUN 36 H
Creatinine 1.7 H
Glucose 88
Calcium 10.0
Vital Signs:
Vital Signs
Temp Pulse Resp BP Pulse Ox
98.4 F 65 18 161/79 96
05/26/24 14:46 05/26/24 14:49 05/26/24 14:46 05/26/24 14:49 05/26/24 14:46
I&O
05/25/24 05/26/24 05/27/24
06:59 06:59 06:59
Intake Total 0 / 0 300 / 300 120 / 120
Output Total 200 / 200 2650 / 2650
Balance -200 / -200 -2350 / -2350 120 / 120
Physical Exam
-
General: No Apparent Distress and Comfortable
HEENT: Negative Oxygen
Respiratory: Clear to Auscultation
Cardiac: Regular Rhythm and S1/S2; Negative Murmur or Rub
GI: Soft, Nontender, Nondistended and Normal Bowel Sounds
Musculoskeletal: No Edema
Neuro: Awake, Alert, Oriented, No Motor Deficits and Nonfocal/Grossly Intact
Psych: Calm
[2024-05-26 15:49] LABS: Glucose - Point of Care 89 mg/dl (70-99)
[2024-05-26] MEDS: IMDUR (EXTENDED RELEASE) 30 MG PO (16:21)
--- NOTE | 2024-05-26 18:04 | PTCARENOTE ---
Pt returned from cardiac cath done via right femoral artery, dressing dry and intact, no sign of bleeding or hematoma inspite of pt needing many reminders to keep his head on the pillow! Pt denies any discomfort, voiding in bed without difficulty.
Telemetry shows ssinus rhythm with first degree AV block and RBBB. Pt started on imdur, he needs some reinforcement on its function. Pt on fall precautions.
[2024-05-26 21:25] LABS: Glucose - Point of Care 123 mg/dl (70-99)
[2024-05-26] MEDS: LIPITOR 80 MG PO (21:35)
--- NOTE | 2024-05-27 01:50 | PTCARENOTE ---
Assumed care of the pt @1900. Pt up in chair. Rt groin cath site dressing c/d/i. SR with 1st degree HB on Tele. Pt attempted to walk to bathroom without assistance after instructed to call for help prior to ambulating. Bed alarm was placed for pt
safety. Pt unsteady on feet with history of falls. Call garcia within reach. Pt remains free from injury.
[2024-05-27 03:14] VITALS: BP 127/57
[2024-05-27 03:41] LABS: Hematocrit 37.1 % (39.0-52.0); Hemoglobin 12.5 g/dL (13.0-18.0); Mean Corp Hgb Conc. 33.7 g/dL (33.0-37.0); Mean Corpuscular Hgb 30.3 pg (27.0-31.0); Mean Corpuscular Volume 89.8 fL (80.0-94.0); Mean Platelet Volume 11.5 fL (7.4-10.4); Platelet Count 173 10^3/uL (130-400); Red Blood Cell Count 4.13 10^6/uL (4.70-6.10); Red Cell Dist. Width 13.5 % (11.5-14.5); White Blood Cell Count 7.4 10^3/uL (4.8-10.8)
[2024-05-27 03:57] LABS: Blood Urea Nitrogen 32 mg/dl (9-20); Calcium 9.4 mg/dl (8.4-10.2); Carbon Dioxide 31 mmol/L (22-30); Chloride 103 mmol/L (98-107); Estimated Creatinine Clearance 43 ml/min; Glucose 95 mg/dl (70-99); Potassium 3.9 mmol/L (3.5-5.1); Sodium 142 mmol/L (135-145)
[2024-05-27 04:56] VITALS: BMI 31.3
[2024-05-27 07:13] LABS: Glucose - Point of Care 103 mg/dl (70-99)
--- NOTE | 2024-05-27 07:45 | W.PN.CD ---
Today's Communication / Plan
-
Continue isosorbide mononitrate and clopidogrel.
Increase home furosemide to 40 mg daily.
Start pantoprazole 40 mg PO daily.
BMP in one week.
If he is still symptomatic after 1-2 weeks, we will have him return for higher risk PCI (of the LMCA/LAD).
Stable for outpatient follow up.
Impression / Plan
-
Impression/Plan: 78 y/o male with HTN, NIDDM, HLD and CAD s/p CABG admitted with chest pain, possible angina vs. GERD, found to have an abnormal stress test with preserved LV function and progressive CAD.
#Chest pain
-Mixed picture. There is a component of angina and GERD (responsive to antacids).
-EKG is non-ischemic, troponin negative.
-Echo shows normal systolic function.
-Stress test shows anterior/anteroseptal ischemia with TID.
-Cath shows progression of LMCA stenosis to 90% leading into the ostium of the LMCA, PLYWOOD SCARFER TENDER of the pLCx. MAX to LAD and sequential SVG to OM2 to OM3 are patent. There is tapering of the distal MAX graft with discrete stenoses at the distal aspect
and severe tortuosity in the distal mid-graft. It is significant enough that minto flow is now competitive/dominant.
-I discussed the findings with Drs. Torres and Tre. Given the complexity of any intervention (atherectomy of the LMCA/LAD or highly tortuous and long stent to the MAX to LAD), the decision was made to proceed with uptitration of medical therapy
and monitor.
-Start isosorbide mononitrate 30 mg daily, clopidogrel 75 mg daily and pantoprazole 40 mg daily.
-If he continues to have symptoms at follow up, we will bring him back for higher risk PCI.
#CAD
-Chronic, progressive.
-hx CABG (MAX to LAD, sequential SVG to OM2 to OM3).
-Continue ASA, atorvastatin, and metoprolol.
#HTN
-Chronic, stable.
-He is only receiving metoprolol and isosorbide mononitrate.
-Cautious re-introduction of anti-hypertensives on discharge.
#DM2
-Chronic, stable.
-Diabetic diet.
-Restart metformin tomorrow.
-The patient would benefit from GLP-1 analogs/SGLT2i, but this can be deferred to outpatient.
#LE edema/Lymphedema
-Chronic.
-LVEDP moderately elevated (21 mmHg) at cath.
-Increase furosemide to 40 mg daily and recheck a BMP in one week.
#Dispo
-Stable for outpatient follow up.
Subjective/Interval History:
Cardiac catheterization shows severe CAD, progression of minto disease to PLYWOOD SCARFER TENDER of the pLCx, worsening LMCA to 90% leading into the ostial LAD. Bypass grafts are patent, but there is narrowing of the distal MAX to the point where minto flow is
competitive, even dominant. The MAX graft is tortuous.
DATA:
TTE, 05/25/2024:
CONCLUSIONS
Left ventricular ejection fraction is 65-70%. Wall motion is consistent with
conduction abnormality.
Normal right ventricular size and function.
No significant valvular disease.
No significant change in overall cardiac function since the prior study of
08/19/2018.
Pharmacologic SPECT, 05/26/2024:
CONCLUSION:
There is a moderate size, moderate intensity reversible defect involving the mid to apical anterior and septal segments; consistent with ischemia.
TID is present.
Systolic function is normal. The ejection fraction is 66%.
Stress Risk is high.
Compared with the study performed on 08/12/2016. There is a new area of ischemia in the LAD territory.
Cardiac Catheterization, 05/26/2024:
CONCLUSIONS
1. Right dominant circulation with a small RCA, and 90% lesion in the distal aspect of the left main leading into an 80-90% lesion in the origin of the LAD and a chronic total occlusion of the proximal circumflex to the level of OM 2, status post
prior three-vessel bypass (patent MAX to LAD with a 60% stenosis in the distal graft followed by a longer, 50% lesion in the terminal graft leading into the LAD with associated 50-60% LAD lesion, patent sequential SVG to OM2 to OM3 without
significant disease).
2. Moderately elevated filling pressures (LVEDP = 21 mmHg at 93.4 kg).
3. There is lack of competitive flow in the LAD in spite of a severe stenosis in the distal left main/ostial LAD and a patent bypass graft. It is difficult to discern if lack of competitive flow is due to more brisk stenosis than is
physiologically perceived or if the stenosis within the MAX graft has become severe enough so that the flow from the minto vessel has become competitive in spite of the left main stenosis.
Physical Exam
Vital Signs/Labs
Vital Signs
Temp Pulse Resp BP Pulse Ox
36.7 C 59 20 127/57 96
05/27/24 03:15 05/27/24 04:00 05/27/24 03:15 05/27/24 03:14 05/27/24 03:15
05/25/24 05/26/24 05/27/24
11:59 11:59 11:59
Actual Weight 97.1 kg 93.7 kg 93.3 kg
05/27/24 03:25
05/27/24 03:25
APTT 29.0 Sec (23.4-35.0) 05/27/24 03:25
Triglycerides 76 mg/dl (10-149) 05/25/24 05:36
LDL Cholesterol, Calc 61 mg/dl 05/25/24 05:36
VLDL Cholesterol, Calc 15 mg/dl (0-30) 05/25/24 05:36
HDL Cholesterol 48 mg/dl 05/25/24 05:36
05/25/24
09:02
Rer-G-Armgygzmswu Pept 484
LAB Results
05/25/24 05/25/24 05/25/24
00:57 05:36 09:02
Troponin I < 0.012 < 0.012 < 0.012
05/25/24
16:23
Troponin I < 0.012
Physical Exam
Constitutional: No acute distress and Comfortable
EENT: Anicteric and Moist mucous membranes
Cardiovascular: Rhythm & rate is regular, JVD pressure is normal, Pedal edema present, S1S2 is normal and Murmur/rub/gallop absent
Respiratory: Respiratory effort normal, Lungs clear to auscul., Wheeze Absent, Crackles Absent and Rhonchi Absent
GI: Soft, Distention absent, Flat, Non tender and Normal bowel sounds
Neuro/Psych: AO x 3
Other: Cath Site (Right femoral access site is C/D/I.)
Data Reviewed
-
Date of Service: May 27, 2024
Medical Decision Making: Reviewed Test Results, Independent Historian Assessment, Test Interpretation and Review of Case with other Provider
EKG: Tracing Personally Visualized and interpreted and Report Reviewed by me
Echo: Tracing Personally Visualized and interpreted and Report Reviewed by me
X-Ray/CT/US/MRI/NUC/PET: Image Personally Visualized and interpreted and Report Reviewed by me
Medical Tests (PFT, Pathology etc): Image Personally Visualized and interpreted, Report Reviewed by me, Discussed with Physician and Discussed with Patient
Labs: Labs Reviewed by me
Old Records: Reviewed
[2024-05-27 07:59] VITALS: BP 125/55
[2024-05-27] MEDS: PLAVIX 75 MG PO (08:11)
[2024-05-27] MEDS: IMDUR (EXTENDED RELEASE) 30 MG PO (08:11)
[2024-05-27] MEDS: LASIX 40 MG PO (08:11)
[2024-05-27] MEDS: LOPRESSOR 25 MG PO (08:11)
[2024-05-27] MEDS: ASPIR LOW (ENTERIC COATED) 81 MG PO (08:11)
[2024-05-27] MEDS: FLOMAX 0.4 MG PO (08:11)
[2024-05-27] MEDS: NSS (PRESERVATIVE FREE) 10 ML IV (08:12)
[2024-05-27] MEDS: PROTONIX IV 40 MG IV (08:13)
[2024-05-27 11:30] VITALS: BP 111/58
[2024-05-27 11:34] LABS: Glucose - Point of Care 166 mg/dl (70-99)
--- NOTE | 2024-05-27 11:56 | CM ---
CM following for DC planning needs.
Met w/ patient at bedside. Pt. anticipating DC to home today.
We reviewed DC planning for home w/ [facility].
Referral has been made to [facility] for [facility] and accepted.
Will update them on DC date.
Plan: HOME w/ [facility]
--- NOTE | 2024-05-27 13:48 | W.DS.TRANS ---
DC Summary - Engine Dynamometer Tester
-
Discharge Instructions:
Sleep Apnea Risk High
Discharge Diagnosis/Procedures Cardiac cath
CAD
ACS
Diet Low Cholesterol,Diabetic, Carb Controlled
Driving Restrictions No driving for 24 hours
Instructions:
Stand-Alone Forms: DC Instructions- Cath/EP Lab
Changes to Home Medications: Yes
Discharge Medications:
DC Medications w/original date entered in [facility]
acetaminophen 650 mg tablet,extended release (Pain Relief (acetaminophen)) 1,300 mg PO TIDPRN PRN mild pain 03/09/10
metoprolol tartrate 25 mg tablet 25 mg PO BID ##60 01/16/14
phenylephrine HCl 1 % nasal spray (Nasal Four) 1 spray NS Q1HPRN PRN congestion 02/07/14
aspirin 81 mg tablet,delayed release 81 mg PO DAILY Blood clot prevention/tx 08/11/16
atorvastatin 80 mg tablet 80 mg PO HS High cholesterol 08/11/16
guaifenesin 400 mg tablet 400 mg PO HS Cough 08/11/16
melatonin 10 mg tablet 10 mg PO HS Sleep 08/11/16
glipizide 5 mg tablet 5 mg PO DAILY Diabetes 01/09/21
tamsulosin 0.4 mg capsule 0.4 mg PO DAILY #30 caps 01/11/21
polyethylene glycol 3350 17 gram oral powder packet (Miralax) 17 g PO DAILY Constipation 04/08/24
propylene glycol 0.6 % eye drops (Systane Balance) 1 drp BOTH EYES HSPRN PRN dry eyes 04/08/24
psyllium husk 3.4 gram/5.4 gram oral powder (Metamucil) 2 tbsp PO DAILY Constipation 04/08/24
salicylic acid 3 % shampoo (DHS Hay) 1 applic topical .2-3X WEEKLY scalp rash 04/08/24
ascorbic acid (vitamin C) 500 mg tablet (Vitamin C) 500 mg PO DAILY Supplement 05/25/24
loratadine 10 mg tablet (Claritin) 10 mg PO DAILY Allergies 05/25/24
clopidogrel 75 mg tablet 75 mg PO DAILY #30 tabs 05/27/24
furosemide 40 mg tablet 40 mg PO DAILY #30 tabs 05/27/24
isosorbide mononitrate 30 mg tablet,extended release 24 hr 30 mg PO DAILY #30 tabs 05/27/24
pantoprazole 40 mg tablet,delayed release 40 mg PO DAILY #30 tabs 05/27/24
Home Medication Changes
Lisinopril/HCTZ stopped.
Plavix, Imdur initiated.
Lasix dose increased
Protonix added
Pending Results: No
--- NOTE | 2024-05-27 14:27 | PTCARENOTE ---
Pt walking in halls with RN without problem using a walker. Pt seen by Abner and Joy. Telemetry and IV devices removed. Discharge instructions reviewed with pt regarding activity and driving restrictions, wound care, medications and their
actions and possible side effects, reporting cares and concerns and follow up lab work and appt's. Pt verbalized good understanding. Pt escorted out via wheelchair and discharged to home.
== END 2024-05-27 14:47 | disposition home health service (06) | DRG 287 ==
LOC: IVU 03:44
PROVIDERS: Internal Medicine; Internal Medicine Cardiovascular Disease; Nurse Practitioner; ADMITTING PHYSICIAN Hospitalist; ATTENDING PHYSICIAN Internal Medicine; EMERGENCY PHYSICIAN Student in an Organized Health Care Education/Training Program; FAMILY PHYSICIAN Family Medicine; OTHER PHYSICIAN Internal Medicine Cardiovascular Disease
PROC: B2111ZZ Fluoroscopy of Multiple Coronary Arteries using Low Osmolar Contrast (ICD-10-PCS; 2024-05-26)
PROC: 4A12XM4 Monitoring of Cardiac Stress, External Approach (ICD-10-PCS; 2024-05-26)
PROC: 4A023N7 Measurement of Cardiac Sampling and Pressure, Left Heart, Percutaneous Approach (ICD-10-PCS; 2024-05-26)
PROC: 3E033HZ Introduction of Radioactive Substance into Peripheral Vein, Percutaneous Approach (ICD-10-PCS; 2024-05-26)
PROC: B2121ZZ Fluoroscopy of Single Coronary Artery Bypass Graft using Low Osmolar Contrast (ICD-10-PCS; 2024-05-26)
DX: I24.9 Acute ischemic heart disease, unspecified (principal); I50.32 Chronic diastolic (congestive) heart failure; I13.0 Hypertensive heart and chronic kidney disease with heart failure and stage 1 through stage 4 chronic kidney disease, or unspecified chronic kidney disease; I45.2 Bifascicular block; I69.351 Hemiplegia and hemiparesis following cerebral infarction affecting right dominant side; I25.82 Chronic total occlusion of coronary artery; E04.1 Nontoxic single thyroid nodule; E66.9 Obesity, unspecified; N18.31 Chronic kidney disease, stage 3a; I89.0 Lymphedema, not elsewhere classified; E78.00 Pure hypercholesterolemia, unspecified; K21.9 Gastro-esophageal reflux disease without esophagitis; I25.119 Atherosclerotic heart disease of native coronary artery with unspecified angina pectoris; E11.22 Type 2 diabetes mellitus with diabetic chronic kidney disease; Z60.2 Problems related to living alone; Z95.1 Presence of aortocoronary bypass graft; Z87.891 Personal history of nicotine dependence; Z87.440 Personal history of urinary (tract) infections; Z11.52 Encounter for screening for COVID-19; Z79.82 Long term (current) use of aspirin; Z79.84 Long term (current) use of oral hypoglycemic drugs; Z68.32 Body mass index [BMI] 32.0-32.9, adult
CPT/HCPCS: 71046; 78452; 80048; 80053; 80061; 82962; 83036; 83880; 84484; 85025; 85027; 85730; 87811; 93005; 93017; 93306; 93459; 96365; 96366; 96367; 99152; 99153; 99285; A9500; C1760; C1894; J2785; Q9950

== ENCOUNTER → 2024-05-31 09:09 | Outpatient (REF) | payer MEDICARE, SELFPAY ==
[2024-05-31 10:37] LABS: Blood Urea Nitrogen 42 mg/dl (9-20); Calcium 9.3 mg/dl (8.4-10.2); Carbon Dioxide 25 mmol/L (22-30); Chloride 109 mmol/L (98-107); Glucose 108 mg/dl (70-99); HDL Cholesterol 50 mg/dl; LDL Cholesterol, Calculated 87 mg/dl; Potassium 4.4 mmol/L (3.5-5.1); Sodium 145 mmol/L (135-145); Total Cholesterol 153 mg/dl (50-199); Triglyceride 84 mg/dl (10-149); Very Low Density Lipoprotein 16 mg/dl (0-30); eGFR 41.01
== END ==
LOC: REG 09:09
PROVIDERS: ATTENDING PHYSICIAN Family Medicine; REFERRING PHYSICIAN Internal Medicine Cardiovascular Disease
DX: I50.30 Unspecified diastolic (congestive) heart failure (principal); I10 Essential (primary) hypertension; E11.42 Type 2 diabetes mellitus with diabetic polyneuropathy
CPT/HCPCS: 36415; 80048; 80061

== ENCOUNTER → 2024-08-15 14:31 | Outpatient (REF) | payer MEDICARE, SELFPAY ==
[2024-08-15 17:53] LABS: Urine Albumin Negative (Neg - Trace); Urine Bilirubin Negative (Negative); Urine Character Clear (Clear); Urine Glucose Negative (Negative); Urine Ketone Negative (Negative); Urine Leukocyte Negative (Negative); Urine Nitrite Negative (Negative); Urine Occult Blood Negative (Negative); Urine Specific Gravity 1.015 (<1.030); Urine Urobilinogen Negative (Neg - 1+)
[2024-08-15 17:59] LABS: Urine Color Straw
== END ==
LOC: CLAB 14:31
PROVIDERS: ATTENDING PHYSICIAN Specialist
DX: N39.0 Urinary tract infection, site not specified (principal)
CPT/HCPCS: 81003; 87086

== ENCOUNTER → 2024-10-24 11:59 | Outpatient (REF) | payer MEDICARE, SELFPAY ==
[2024-10-24 13:38] LABS: Blood Urea Nitrogen 40 mg/dl (9-20); Calcium 9.6 mg/dl (8.4-10.2); Carbon Dioxide 26 mmol/L (22-30); Chloride 105 mmol/L (98-107); Glucose 91 mg/dl (70-99); HDL Cholesterol 43 mg/dl; LDL Cholesterol, Calculated 76 mg/dl; Potassium 4.1 mmol/L (3.5-5.1); Sodium 143 mmol/L (135-145); Total Cholesterol 158 mg/dl (50-199); Triglyceride 197 mg/dl (10-149); Very Low Density Lipoprotein 39 mg/dl (0-30); eGFR 38.05
== END ==
LOC: REG 11:59
PROVIDERS: ATTENDING PHYSICIAN Internal Medicine Cardiovascular Disease; FAMILY PHYSICIAN Family Medicine
DX: I25.810 Atherosclerosis of coronary artery bypass graft(s) without angina pectoris (principal); E78.5 Hyperlipidemia, unspecified
CPT/HCPCS: 36415; 80048; 80061

== ENCOUNTER 2025-03-25 19:18 | Inpatient (IN) | payer MEDICARE, SELFPAY ==
[2025-03-25] VITALS (7 sets, daily range): BP systolic 108–132; BP diastolic 59–66; BMI 28.6; BMI 28.4
[2025-03-25 17:18] LABS: Hematocrit 38.7 % (39.0-52.0); Hemoglobin 13.7 g/dL (13.0-18.0); Mean Corp Hgb Conc. 35.4 g/dL (33.0-37.0); Mean Corpuscular Volume 86.2 fL (80.0-94.0); Nucleated Red Blood Cells % 0 % (-); Platelet Count 189 10^3/uL (130-400); Red Cell Dist. Width 13.0 % (11.5-14.5)
[2025-03-25 17:39] LABS: ALT (SGPT) 30 U/L (0-50); AST (SGOT) 28 U/L (17-59); Albumin 4.4 g/dl (3.5-5.0); Alkaline Phosphatase 63 U/L (38-126); Blood Urea Nitrogen 110 mg/dl (9-20); Calcium 10.6 mg/dl (8.4-10.2); Carbon Dioxide 18 mmol/L (22-30); Chloride 106 mmol/L (98-107); Estimated Creatinine Clearance 26 ml/min; Glucose 136 mg/dl (70-99); Potassium 3.7 mmol/L (3.5-5.1); Sodium 138 mmol/L (135-145); Total Protein 7.4 g/dl (6.3-8.2); eGFR 28.35
[2025-03-25 17:45] LABS: Troponin I < 0.012 ng/ml
[2025-03-25] MEDS: TYLENOL 650 MG PO (17:50)
[2025-03-25] MEDS: NSS 1000 IV ×2 (17:55→22:29)
--- NOTE | 2025-03-25 18:25 | ED.GENMED ---
History of Present Illness
<Bro Vazquez PA-C - Last Filed: 03/25/25 19:51>
General
Chief Complaint: Breathing Problem
Time Seen by Provider: 03/25/25 17:12
History of Present Illness
History of Present Illness:
79-year-old male presents to the emergency department for evaluation of dyspnea on exertion. States that he saw his primary care physician earlier in the week and his lisinopril was discontinued due to low blood pressures. Gradually as he was
doing PT throughout the week his blood pressures improved but he continues to feel short of breath with exertion. Denies chest pain, fevers, vomiting, or diarrhea. Does admit to poor p.o. intake this week.
Past History
<Bro Vazquez PA-C - Last Filed: 03/25/25 19:51>
Past History
ED Past Medical History: CAD, CVA and NIDDM
ED Past Surgical History: Cardiac
Social History
Tobacco: Former smoker
Alcohol: Occasional
Drug: None
Personal:
Living: alone
Employment: Retired
Family History
Family History: Other (Noncontributory)
Review of Systems
<Bro Vazquez PA-C - Last Filed: 03/25/25 19:51>
Review of Systems
Allergies reviewed?: Yes
All Other Systems: ROS reviewed and negative except as documented in HPI and ROS
Phy Exam
<Bro Vazquez PA-C - Last Filed: 03/25/25 19:51>
Physical Exam
Physical Exam:
GEN: Well appearing, NAD, WDWN
HEENT: Oral mucosa moist, no scleral icterus
Cardiac: Regular rate and rhythm, no murmurs
Lung: No respiratory distress, no tachypnea, lungs clear to auscultation bilaterally
MSK: No gross deformity or injuries
Skin: Good color, no pallor or jaundice, no rashes
Neuro: AO x3, moves all extremities freely
Psych: Calm, cooperative
Scores
<Bro Vazquez PA-C - Last Filed: 03/25/25 19:51>
Heart Failure Risk
Heart Failure Risk Score: Not Applicable
Course
<Bro Vazquez PA-C - Last Filed: 03/25/25 19:51>
Orders/Labs/Results
Orders:
Orders
03/25/25 16:57
ECG [Electrocardiogram (*1)] Urgent
Reason for Study: Shortness of Breath
EKG- Treatment ONCE
03/25/25 17:09
Complete Blood Count/With Diff Urgent
Comprehensive Metabolic Panel Urgent
NT-proBNP Urgent
Troponin I Urgent
03/25/25 17:44
0.9% Sodium Chloride 1000 ml [Nss] 1,000 ml IV BOLUS
03/25/25 17:45
Acetaminophen [Tylenol] 650 mg PO NOW STA
03/25/25 18:26
CR Chest - 2 Views Urgent
Comment:
Reason For Exam: MORALES
03/25/25 18:50
Admit/Transfer Patient As Directed
Co-Sign Provider:
Level of Care: Inpatient admission
Assign to:: Telemetry
Physician / Group: jacob
Diagnosis: SHARON, hypovolemia
Reason for Telemetry: Arrhythmia
Date to Stop Telemetry: 03/28/25
Time to Stop Telemetry: 11:00
Reason for Hospitalization: SHARON, hypovolemia
Expected length of stay greater than two midnights?: Yes
ELOS- Estimated Length of Stay in days: 2
I certify the patient meets the requirements for IP care: Yes
Code Status As Directed
Resuscitation Status: Do not resuscitate
Reached after discussion with pt or family/Healthcare POA: Yes
DNR Bracelet Application ONCE
PRN Pain Medication Management As Directed
May give lesser potent ordered pain med per pt: Yes
preference::
Protocol:: Medication orders for pain may be administered in a
manner that supports deferring to patient preference
when the pt is:
- Requesting an ordered lesser potent pain medication.
Least to most potent pain medications are defined
as: acetaminophen < NSAID < tramadol < opioids
(morphine, oxycodone, hydromorphone).
- Requesting a lesser dose of the same medication IF
ORDERED.
- Requesting a less intrusive route of administration
if both routes are prescribed by the provider (PO <
IV).
03/25/25 18:52
Urinalysis Urgent
Date Specimen was Collected: 03/25/25
Time Specimen was Collected: 18:51
Urine Microscopic Urgent
Date Specimen was Collected: 03/25/25
Time Specimen was Collected: 18:51
03/28/25 11:00
DC Protocol for Telemetry ONCE
Abnormal Lab Results
03/25/25 03/25/25
17:09 18:52
RBC 4.49 L 10^6/uL
(4.70-6.10)
Hct 38.7 L %
(39.0-52.0)
MPV 11.8 H fL
(7.4-10.4)
Absolute Lymphs (auto) 1.0 L 10^3/uL
(1.2-3.4)
Absolute Monos (auto) 0.7 H 10^3/uL
(0.1-0.6)
Lymphocytes % 13.1 L %
(20.5-51.1)
Monocytes % 9.5 H %
(1.7-9.3)
Carbon Dioxide 18 L mmol/L
(22-30)
BUN 110 H* mg/dl
(9-20)
Creatinine 2.3 H mg/dL
(0.7-1.3)
Glucose 136 H mg/dl
(70-99)
Calcium 10.6 H mg/dl
(8.4-10.2)
Urine Bacteria Few A
(Negative)
Urine Albumin 1+ A
(Neg - Trace)
03/25/25 17:09
03/25/25 17:09
Vital Signs
Initial and Last Documented VS:
Initial Vital Signs
Temp Pulse Resp BP Pulse Ox
97.4 F 73 16 113/59 96
03/25/25 16:54 03/25/25 16:54 03/25/25 16:54 03/25/25 16:54 03/25/25 16:54
Last Documented Vital Signs
Temp Pulse Resp BP Pulse Ox
97.4 F 75 23 118/59 93
03/25/25 16:54 03/25/25 19:00 03/25/25 17:00 03/25/25 19:00 03/25/25 18:26
<Yvette Rubin, - Last Filed: 03/25/25 19:08>
Orders/Labs/Results
Orders:
Orders
03/25/25 16:57
ECG [Electrocardiogram (*1)] Urgent
Reason for Study: Shortness of Breath
EKG- Treatment ONCE
03/25/25 17:09
Complete Blood Count/With Diff Urgent
Comprehensive Metabolic Panel Urgent
NT-proBNP Urgent
Troponin I Urgent
03/25/25 17:44
0.9% Sodium Chloride 1000 ml [Nss] 1,000 ml IV BOLUS
03/25/25 17:45
Acetaminophen [Tylenol] 650 mg PO NOW STA
03/25/25 18:26
CR Chest - 2 Views Urgent
Comment:
Reason For Exam: MORALES
03/25/25 18:50
Admit/Transfer Patient As Directed
Co-Sign Provider:
Level of Care: Inpatient admission
Assign to:: Telemetry
Physician / Group: jacob
Diagnosis: SHARON, hypovolemia
Reason for Telemetry: Arrhythmia
Date to Stop Telemetry: 03/28/25
Time to Stop Telemetry: 11:00
Reason for Hospitalization: SHARON, hypovolemia
Expected length of stay greater than two midnights?: Yes
ELOS- Estimated Length of Stay in days: 2
I certify the patient meets the requirements for IP care: Yes
Code Status As Directed
Resuscitation Status: Do not resuscitate
Reached after discussion with pt or family/Healthcare POA: Yes
DNR Bracelet Application ONCE
PRN Pain Medication Management As Directed
May give lesser potent ordered pain med per pt: Yes
preference::
Protocol:: Medication orders for pain may be administered in a
manner that supports deferring to patient preference
when the pt is:
- Requesting an ordered lesser potent pain medication.
Least to most potent pain medications are defined
as: acetaminophen < NSAID < tramadol < opioids
(morphine, oxycodone, hydromorphone).
- Requesting a lesser dose of the same medication IF
ORDERED.
- Requesting a less intrusive route of administration
if both routes are prescribed by the provider (PO <
IV).
03/25/25 18:52
Urinalysis Urgent
Date Specimen was Collected: 03/25/25
Time Specimen was Collected: 18:51
Urine Microscopic Urgent
Date Specimen was Collected: 03/25/25
Time Specimen was Collected: 18:51
03/28/25 11:00
DC Protocol for Telemetry ONCE
Abnormal Lab Results
03/25/25 03/25/25
17:09 18:52
RBC 4.49 L 10^6/uL
(4.70-6.10)
Hct 38.7 L %
(39.0-52.0)
MPV 11.8 H fL
(7.4-10.4)
Absolute Lymphs (auto) 1.0 L 10^3/uL
(1.2-3.4)
Absolute Monos (auto) 0.7 H 10^3/uL
(0.1-0.6)
Lymphocytes % 13.1 L %
(20.5-51.1)
Monocytes % 9.5 H %
(1.7-9.3)
Carbon Dioxide 18 L mmol/L
(22-30)
BUN 110 H* mg/dl
(9-20)
Creatinine 2.3 H mg/dL
(0.7-1.3)
Glucose 136 H mg/dl
(70-99)
Calcium 10.6 H mg/dl
(8.4-10.2)
Urine Bacteria Few A
(Negative)
Urine Albumin 1+ A
(Neg - Trace)
03/25/25 17:09
03/25/25 17:09
Vital Signs
Initial and Last Documented VS:
Initial Vital Signs
Temp Pulse Resp BP Pulse Ox
97.4 F 73 16 113/59 96
03/25/25 16:54 03/25/25 16:54 03/25/25 16:54 03/25/25 16:54 03/25/25 16:54
Last Documented Vital Signs
Temp Pulse Resp BP Pulse Ox
97.4 F 75 23 118/59 93
03/25/25 16:54 03/25/25 19:00 03/25/25 17:00 03/25/25 19:00 03/25/25 18:26
<Bro Vazquez PA-C - Last Filed: 03/25/25 19:51>
MDM/Problems Addressed
MDM/Problems Addressed:
Patient's symptoms are most likely attributable to severe SHARON with marked he did have his lisinopril discontinued earlier weeks thus I suspect this is a case of overdiuresis with lack of p.o. take. Start gentle IV fluids and admit for further
management
<Bro Vazquez PA-C - Last Filed: 03/25/25 19:51>
*Pulse Oximetry
SaO2: 93
Oxygen Mode of Delivery: Room air
Patient hypoxic: no
*Critical Care Note
Total Time (30-74mins, 75-104mins- exclusive of procedures): Not Applicable
ED Attending Note
<Bro Vazquez PA-C - Last Filed: 03/25/25 19:51>
-
Portions of this chart may have been created with voice recognition software.� Occasional wrong word or��sound alike� substitutions may have occurred due to the inherent limitations of voice recognition software.
<Yvette Rubin DO - Last Filed: 03/25/25 19:08>
ED Attending Note
Patient seen and examined by attending physician: Yes
I performed the substantive portion of visit, reviewed & personally made and approve the management plan that is documented in note by myself or ALLI.: Yes
I performed a history and physical exam of patient and discussed management with resident, I reviewed resident's note and agree with documented findings and plan of care.: Yes
ED Attending Note:
79-year-old male with history of CAD, CKD, hypertension, hyperlipidemia, CHF, diabetes presenting to the emergency department for dyspnea on exertion. Patient reports symptoms for the past week. He has been following with his primary care doctor
and his blood pressures were running low so his lisinopril was discontinued. Denies any difficulty breathing at rest or any chest pain. Denies any significant lower extremity swelling. Denies cough or fever. Does note overall poor p.o. intake
over the past week.
Vital signs on arrival are normal. On exam resting comfortably, no increased work of breathing. No signs of volume overload with lungs clear to auscultation, no significant lower extremity edema with lower suspicion for acute exacerbation of CHF.
In the setting of low blood pressures and shortness of breath, dehydration is a consideration. Patient had laboratory analysis, EKG prior to my assessment with evidence of acute kidney injury. Suspicion for overdiuresis, as well as lack of p.o.
intake. IV fluids administered. Plan for admission for continued monitoring of kidney dysfunction. Will also obtain chest x-ray imaging
Discharge Plan
Departure
Patient Disposition: Admit
Date of Disposition: 03/25/25
Time of Disposition: 18:29
Admit to: Med/Surg
Presentation/result/management discussed w/ accepting MD/DO: Hospitalist
Discharge Problem:
Acute kidney injury
Interventions
Interventions:
*Risk Screen - Suicide Last Done: 03/25/25 16:54
*General Assessment Last Done: 03/25/25 16:54
*Neglect/Abuse Screening Last Done: 03/25/25 16:54
*ED- Fall Risk Assessment Last Done: 03/25/25 19:17
ED- Cardiac Assessment Last Done: 03/25/25 17:12
ED- Pulmonary Assessment Last Done: 03/25/25 17:12
--- NOTE | 2025-03-25 18:54 | HPS.HSE ---
Family Physician
-
Family Physician: Randy Miles
Chief Complaint
-
lightheadedness
History of Present Illness
79-year-old male past medical history of CAD status post CABG, HFpEF, hypertension, diabetes, CKD 3, psoriasis, presenting with lightheadedness with exertion and slight shortness of breath with exertion for the past week. As per ER documentation he
saw his primary care physician earlier in the week and lisinopril was stopped due to low blood pressures but patient did not tell me this. As he was doing physical therapy throughout the week his blood pressures improved but he continues to feel
dizzy and short of breath. Denies chest pain.
He has chronic lower extremity edema which is at baseline.
He has not been eating or drinking well for the past several weeks due to lack of appetite. He has lost significant weight. He did urinate less today.
He denies any fevers or chills, nausea vomiting or diarrhea.
2 months ago he sat on his couch and felt that a splinter may have penetrated his butt cheek. This improved after some time but started again a few weeks ago. He saw his primary care physician who started him on Keflex 4 days ago which he feels
improved his symptoms a little bit. He denies any rectal pain or pain with bowel movements.
Patient has a history of psoriasis but is not on any treatment and has not seen a rating clerk in few years.
He is a former smoker. Drinks alcohol occasionally.
Medical History
Past Medical History
Past Medical History: Reports Other (CAD status post CABG, HFpEF, hypertension, diabetes, CKD 3, psoriasis, )
Past Surgical History: Reports None
Social History
Tobacco: Former Smoker
Alcohol: Occasional
Drug: None
Family History
Family History: Not pertinent
Allergies / Home Medications
Allergies reflects when Allergies were last updated in [employer].
Home Medications with original date entered in [facility]
Allergy/Medication List:
Allergies
Allergy/AdvReac Type Severity Reaction Status Date / Time
pioglitazone (From [employer]) Allergy Unknown Verified 03/25/25 16:58
Home Medications
metoprolol tartrate 25 mg tablet 25 mg PO BID ##60 01/16/14
phenylephrine HCl 1 % nasal spray (Nasal Four) 1 spray NS DAILYPRN PRN congestion 02/07/14
aspirin 81 mg tablet,delayed release 81 mg PO DAILY Blood clot prevention/tx 08/11/16
atorvastatin 80 mg tablet 80 mg PO HS High cholesterol 08/11/16
guaifenesin 400 mg tablet 400 mg PO HS Cough 08/11/16
tamsulosin 0.4 mg capsule 0.4 mg PO DAILY #30 caps 01/11/21
polyethylene glycol 3350 17 gram oral powder packet (Miralax) 17 g PO DAILY Constipation 04/08/24
propylene glycol 0.6 % eye drops (Systane Balance) 1 drp BOTH EYES HSPRN PRN dry eyes 04/08/24
psyllium husk 3.4 gram/5.4 gram oral powder (Metamucil) 2 tbsp PO DAILY Constipation 04/08/24
ascorbic acid (vitamin C) 500 mg tablet (Vitamin C) 500 mg PO DAILY Supplement 05/25/24
clopidogrel 75 mg tablet 75 mg PO DAILY #30 tabs 05/27/24
furosemide 40 mg tablet 40 mg PO DAILY #30 tabs 05/27/24
isosorbide mononitrate 30 mg tablet,extended release 24 hr 30 mg PO DAILY #30 tabs 05/27/24
pantoprazole 40 mg tablet,delayed release 40 mg PO DAILY #30 tabs 05/27/24
cephalexin 500 mg capsule 500 mg PO Q8H 03/25/25
cholecalciferol (vitamin D3) 25 mcg (1,000 unit) tablet 25 mcg PO DAILY 03/25/25
glipizide 5 mg tablet, extended release 24 hr 5 mg PO BID 03/25/25
metformin 500 mg tablet 500 mg PO BID 03/25/25
zinc gluconate 30 mg tablet 30 mg PO DAILY 03/25/25
Review of Systems
-
History Source: Patient
A 12 point ROS was completed and negative except as noted: Yes
Constitutional: Reports No Symptoms
EENT: Reports No Symptoms
Respiratory: Reports No Symptoms
Cardiac: Reports No Symptoms
Abdomen/GI: Reports No Symptoms
: Reports No Symptoms
Musculoskeletal: Reports No Symptoms
Skin: Reports No Symptoms
Neurological: Reports No Symptoms
Endocrine: Reports No Symptoms
Hematologic/Lymphatic: Reports No Symptoms
Psych: Reports No Symptoms
Physical Exam
Vital Signs
Vital Signs
Temp Pulse Resp BP Pulse Ox
97.4 F 73 16 113/59 93
03/25/25 16:54 03/25/25 16:54 03/25/25 16:54 03/25/25 16:54 03/25/25 18:26
Physical Exam
General: Well Developed, Well Nourished and No Apparent Distress
HEENT: NormoCephalic, Moist mucous membranes and Atraumatic
Respiratory: Clear
Cardiac: S1/S2 and Regular Rhythm; No Murmur or Rub
GI: Soft, Non Tender, Non Distended and Normal Bowel Sounds; No Organomegaly
Rectal: Deferred by Provider
Musculoskeletal: No Clubbing, No Cyanosis and No Edema
Skin: No Rash
Neuro: Nonfocal/grossly intact
Laboratory Results
-
03/25/25 17:09
03/25/25 17:09
Laboratory Results
Total Bilirubin 0.7 mg/dl (0.2-1.3) 03/25/25 17:09
AST 28 U/L (17-59) 03/25/25 17:09
ALT 30 U/L (0-50) 03/25/25 17:09
Alkaline Phosphatase 63 U/L (38-126) 03/25/25 17:09
Troponin I < 0.012 ng/ml 03/25/25 17:09
Data Reviewed
-
Lab Data: Labs Reviewed by me
Old Records: Reviewed
Impression/Plan
-
IMPRESSION:
PLAN:
# Dizziness/dyspnea on exertion secondary to hypovolemia from overdiuresis/decreased p.o. intake
- Cardiac BNP of 543
- Check CXR
- Check orthostatic vital signs
- IV fluids
# SHARON on CKD 3
# Uremia
-Creatinine of 2.3 from baseline of 1.7
-BUN 110
- IV fluids
- Hold Lasix
- Bladder scan protocol
- Urinalysis pending
# Rectal erythema suspect untreated psoriasis
- Appears external
- Possibly infected so we will continue Keflex for total of 1 week however suspect this is more likely due to untreated psoriasis
- Outpatient dermatology follow
CAD status post CABG
- Continue aspirin, Plavix, statin
- Continue isosorbide mononitrate
- Continue metoprolol
Chronic HFpEF
- Hold Lasix
Essential hypertension
Type 2 diabetes
- Hold glipizide, metformin
- Insulin sliding scale
Chronic lower extremity lymphedema
GERD
- Continue Protonix
Constipation
- Continue MiraLAX
BPH
- Continue tamsulosin
DNR/DNI
DVT prophylaxis�heparin
Cardiac diet
[2025-03-25 19:13] LABS: Urine Character Clear (Clear)
[2025-03-25 19:42] LABS: Urine Red Blood Cell 0-2 /HPF (0-2); Urine Squamous Cell 0-2 /LPF (Few); Urine White Cell 0-2 /HPF (0-5)
[2025-03-25] MEDS: LIPITOR 80 MG PO (22:28)
[2025-03-25] MEDS: HEPARIN 5000 UNITS SC (22:28)
[2025-03-25] MEDS: LOPRESSOR 25 MG PO (22:28)
[2025-03-25] MEDS: KEFLEX 500 MG PO (22:29)
[2025-03-26 01:59] VITALS: BMI 28.4
[2025-03-26 03:14] VITALS: BP 131/60
[2025-03-26 06:59] LABS: Hematocrit 39.2 % (39.0-52.0); Hemoglobin 13.5 g/dL (13.0-18.0); Mean Corp Hgb Conc. 34.4 g/dL (33.0-37.0); Mean Corpuscular Volume 87.9 fL (80.0-94.0); Nucleated Red Blood Cells % 0 % (-); Platelet Count 195 10^3/uL (130-400); Red Cell Dist. Width 12.9 % (11.5-14.5)
[2025-03-26 07:00] VITALS: BP 150/67
[2025-03-26 07:34] LABS: ALT (SGPT) 28 U/L (0-50); AST (SGOT) 26 U/L (17-59); Albumin 4.2 g/dl (3.5-5.0); Alkaline Phosphatase 64 U/L (38-126); Blood Urea Nitrogen 89 mg/dl (9-20); Calcium 10.0 mg/dl (8.4-10.2); Carbon Dioxide 25 mmol/L (22-30); Chloride 109 mmol/L (98-107); Estimated Creatinine Clearance 31 ml/min; Glucose 87 mg/dl (70-99); Potassium 3.8 mmol/L (3.5-5.1); Sodium 143 mmol/L (135-145); Total Protein 7.0 g/dl (6.3-8.2); eGFR 35.66
[2025-03-26 08:40] LABS: Glucose - Point of Care 287 mg/dl (70-99)
[2025-03-26] MEDS: IMDUR (EXTENDED RELEASE) 30 MG PO (08:49)
[2025-03-26] MEDS: ASPIR LOW (ENTERIC COATED) 81 MG PO (08:49)
[2025-03-26] MEDS: FLOMAX 0.4 MG PO (08:53)
[2025-03-26] MEDS: PLAVIX 75 MG PO (08:53)
[2025-03-26] MEDS: PROTONIX 40 MG PO (08:53)
[2025-03-26] MEDS: VITAMIN C 500 MG PO (08:53)
[2025-03-26] MEDS: HEPARIN 5000 UNITS SC ×2 (08:53→19:37)
[2025-03-26] MEDS: VITAMIN D3 (cholecalciferol) 25 MCG PO (08:53)
[2025-03-26] MEDS: LOPRESSOR 25 MG PO ×2 (08:54→19:37)
[2025-03-26] MEDS: METAMUCIL, KONSYL 1 PACKET PO (08:54)
[2025-03-26] MEDS: MIRALAX 17 GRAMS PO (08:54)
[2025-03-26] MEDS: KEFLEX PO (09:01)
[2025-03-26] MEDS: NSS 1000 IV ×2 (09:04→19:36)
--- NOTE | 2025-03-26 09:04 | W.PN.HOSP.TC ---
Today's Communication/Plan
-
Hold diuretics
Bladder scan
Repeat labs in the morning
Orthostatic vitals
Stop cephalexin
Assessment / Plan
Assessment / Plan
Gen-AAOx3, NAD
HEENT-NC, AT, anicteric, clear oral mm
Neck-supple
CV-reg, no M, +S1/S2
Lungs-clear B/L
Abd-soft, NT, ND
Ext-mild lymphedema in the ankles bilaterally
Musculoskeletal-no cyanosis, clubbing
Skin-warm and dry, psoriatic lesions of right ankle.
Neuro-grossly non-focal
Psych-calm, cooperative
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 Diuretics on hold. IV fluids administered. Creatinine trending down. Hemodynamically stable.
Presentation with mild anion gap metabolic acidosis, resolved. Urine ketones negative.
Suspect baseline creatinine 1.7-1.8. Creatinine 2.3 on admission. Improved to 1.9 today.
Check bladder scan.
Does not have a linotyper, although he saw a linotyper in the past. Will defer to PCP.
No evidence of active infection on exam -discontinue further Keflex. I turned the patient over and looked at his buttocks, no skin lesions or open wounds.
He claims a splinter penetrated his left buttock 4 months ago when he sat down on the couch. Went to see his primary care doctor a week ago and was started on empiric Keflex.
CAD/CABG -stable.
Chronic heart failure preserved EF -compensated. Diuretics on hold for volume depletion, SHARON.
DM2 with hyperglycemia -glucose 87 this morning. Hemoglobin A1c pending. At home he is on glipizide and metformin, will hold.
Probably should not be on long-term metformin given chronic kidney disease.
Use low resistance NovoLog scale.
Essential hypertension -patient claims he was hypotensive prior to admission. Lisinopril discontinued by PCP. Blood pressure currently stable.
Hyperlipidemia -atorvastatin.
GERD
Chronic lower extremity lymphedema -uses lymphedema pumps at home.
BPH
Lower extremity psoriasis
DNR
Dispo -possible discharge Thursday morning if stable pending labs. Close outpatient follow-up.
Anticipated Discharge: Within 24 hours
Subjective/Interval History
-
Date of Service: March 26, 2025
Patient seen and examined. Shortness of breath improved. Lightheadedness improved. No complaints.
Objective Data
-
Labs:
Laboratory Results
03/26/25
06:22
WBC 5.9
Hgb 13.5
Hct 39.2
Plt Count 195
Sodium 143
Potassium 3.8
Chloride 109 H
Carbon Dioxide 25
BUN 89 H
Creatinine 1.9 H
Glucose 87
Calcium 10.0
Total Bilirubin 0.8
AST 26
ALT 28
Alkaline Phosphatase 64
Vital Signs:
Vital Signs
Temp Pulse Resp BP Pulse Ox
98.2 F 77 18 150/67 97
03/26/25 07:00 03/26/25 07:00 03/26/25 07:00 03/26/25 07:00 03/26/25 07:00
I&O
03/25/25 03/26/25 03/27/25
06:59 06:59 06:59
Intake Total 1237 / 1237
Output Total 1700 / 1700
Balance -463 / -463
Review of Systems
-
History Source: Patient
All other systems: Reviewed and negative
[2025-03-26] MEDS: NOVOLOG FLEXPEN-LOW RESISTANCE 3 UNITS SC (09:07)
[2025-03-26 11:00] VITALS: BP 111/58
[2025-03-26 11:41] LABS: Glucose - Point of Care 141 mg/dl (70-99)
[2025-03-26] MEDS: NOVOLOG FLEXPEN-LOW RESISTANCE SC ×2 (11:53→17:00)
[2025-03-26 12:35] LABS: Glycohemoglobin (HgbA1c) 6.2 % (4.0-5.6)
--- NOTE | 2025-03-26 14:12 | CM ---
Met with pt. IMM given and placed on chart. Lives alone in single story home and is independent in ADLs and IADLs. Is current with through [employer]. Has walker, spc, shower chair, toilet rails and shower grab bar. NO home O2. Has had recent stay at
[facility] after a fall. No insecurities identified. Confirme PCP. Rx, insurance and drug coverage
PCP: Randy Miles
Rx: Vivienne/Isaura
Plan: Home with ROS with [facility]
[2025-03-26 15:00] VITALS: BP 123/51
[2025-03-26 16:59] LABS: Glucose - Point of Care 140 mg/dl (70-99)
[2025-03-26 19:20] VITALS: BP 128/71
[2025-03-26] MEDS: LIPITOR 80 MG PO (19:37)
[2025-03-26 21:23] LABS: Glucose - Point of Care 148 mg/dl (70-99)
[2025-03-26 23:25] VITALS: BP 138/73
[2025-03-27 03:14] VITALS: BP 163/85
[2025-03-27 06:00] VITALS: BMI 28.3
[2025-03-27 07:00] VITALS: BP 143/70
[2025-03-27 07:15] LABS: Glucose - Point of Care 127 mg/dl (70-99)
[2025-03-27] MEDS: NOVOLOG FLEXPEN-LOW RESISTANCE SC ×2 (08:11→11:52)
[2025-03-27] MEDS: NSS IV ×2 (08:16→08:32)
[2025-03-27] MEDS: FLOMAX 0.4 MG PO (08:18)
[2025-03-27] MEDS: IMDUR (EXTENDED RELEASE) 30 MG PO (08:18)
[2025-03-27] MEDS: ASPIR LOW (ENTERIC COATED) 81 MG PO (08:18)
[2025-03-27] MEDS: LOPRESSOR 25 MG PO (08:18)
[2025-03-27] MEDS: PROTONIX 40 MG PO (08:18)
[2025-03-27] MEDS: VITAMIN C 500 MG PO (08:18)
[2025-03-27] MEDS: VITAMIN D3 (cholecalciferol) 25 MCG PO (08:18)
[2025-03-27] MEDS: PLAVIX 75 MG PO (08:18)
[2025-03-27] MEDS: METAMUCIL, KONSYL PO (08:19)
[2025-03-27] MEDS: HEPARIN SC (08:19)
[2025-03-27] MEDS: MIRALAX PO (08:19)
--- NOTE | 2025-03-27 08:48 | W.PN.HOSP.TC ---
Today's Communication/Plan
-
Discharge today
Assessment / Plan
Assessment / Plan
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 Diuretics on hold. IV fluids administered. Creatinine trending down. Hemodynamically stable.
Presentation with mild anion gap metabolic acidosis, resolved. Urine ketones negative.
Suspect baseline creatinine 1.7-1.8.
Resolved with IV fluids, creatinine 1.4 today, was 2.3 upon admission.
Medically stable for discharge, follow-up with PCP in 1 week, resume Lasix upon discharge
No evidence of active infection on exam -discontinue further Keflex. Dr. Deng turned the patient over and looked at his buttocks, no skin lesions or open wounds.
He claims a splinter penetrated his left buttock 4 months ago when he sat down on the couch. Went to see his primary care doctor a week ago and was started on empiric Keflex.
CAD/CABG -stable.
Chronic heart failure preserved EF -compensated. Diuretics on hold for volume depletion, SHARON. Resume Lasix upon discharge
DM2 with hyperglycemia -glucose 87 this morning. Hemoglobin A1c pending. At home he is on glipizide and metformin, resume upon discharge.
Probably should not be on long-term metformin given chronic kidney disease.
Use low resistance NovoLog scale.
Essential hypertension -patient claims he was hypotensive prior to admission. Lisinopril discontinued by PCP. Blood pressure currently on metoprolol tartrate 25 mg twice a day.
Hyperlipidemia -atorvastatin.
GERD
Chronic lower extremity lymphedema -uses lymphedema pumps at home.
BPH
Lower extremity psoriasis
DVT prophylaxis�subcu heparin
DNR
Physical exam
Gen-AAOx3, NAD
HEENT-NC, AT, anicteric, clear oral mm
Neck-supple
CV-reg, no M, +S1/S2
Lungs-clear B/L
Abd-soft, NT, ND
Ext-mild lymphedema in the ankles bilaterally
Musculoskeletal-no cyanosis, clubbing
Skin-warm and dry, psoriatic lesions of right ankle.
Anticipated Discharge: Today
Subjective/Interval History
-
Date of Service: March 27, 2025
Patient complains of a headache. He is irritable, and upset that he has not been discharged yet. Denies chest pain, denies shortness of breath. No fever, no vomiting.
Objective Data
-
Vital Signs:
Vital Signs
Temp Pulse Resp BP Pulse Ox
97.7 F 68 17 143/70 98
03/27/25 07:00 03/27/25 07:00 03/27/25 07:00 03/27/25 07:00 03/27/25 07:00
I&O
03/26/25 03/27/25 03/28/25
06:59 06:59 06:59
Intake Total 1237 / 1237 2440 / 2440 680 / 680
Output Total 1700 / 1700 2020 / 2020 200 / 200
Balance -463 / -463 420 / 420 480 / 480
[2025-03-27 09:00] VITALS: BP 102/67; BP 159/77; PULSE 81; PULSE 93
[2025-03-27 10:31] LABS: Blood Urea Nitrogen 40 mg/dl (9-20); Calcium 9.5 mg/dl (8.4-10.2); Carbon Dioxide 23 mmol/L (22-30); Chloride 113 mmol/L (98-107); Estimated Creatinine Clearance 42 ml/min; Glucose 219 mg/dl (70-99); Potassium 3.7 mmol/L (3.5-5.1); Sodium 143 mmol/L (135-145); eGFR 51.45
--- NOTE | 2025-03-27 10:43 | CM ---
Addendum entered by Mikayla Jones 03/27/25 12:10:
Pt discharged to home, no needs.
Original Note:
Attempted to meet with patient to clarify which VN he is current with. Pt lashed out at CM saying I was making him angry. Pt is frustrated that he has not seen a doctor today. Nurse made aware. Nurse questioned the pt as to whether he has VN at home
and he stated 'No...I don't want visiting nurses'
Plan: Home with no needs.
[2025-03-27] MEDS: TYLENOL 650 MG PO (10:49)
[2025-03-27 11:00] VITALS: BP 132/67
--- NOTE | 2025-03-27 11:14 | W.DCSUMMARY ---
Discharge Summary
Discharge Data
Date of Admission: 03/25/25
Date of Discharge: 03/27/25
-
Pending Results: No
Hospital Course
Discharge diagnosis:
Acute kidney injury superimposed on stage IIIb chronic kidney disease
Coronary artery disease
Chronic heart failure with a preserved ejection fraction
Type 2 diabetes with hyperglycemia
Essential hypertension
Chronic lower extremity lymphedema
Lower extremity psoriasis
Hospital course:
79-year-old male past medical history of CAD status post CABG, HFpEF, hypertension, diabetes, CKD 3, and psoriasis who was admitted for acute kidney injury superimposed on stage IIIb chronic kidney disease. Patient's acute kidney injury is likely
due to dehydration while taking Lasix. His Lasix was held. He was treated with IV fluids. His creatinine was 2.3 upon admission, and improved to 1.4 on the day of discharge.
Patient was noted to be on Keflex for a presumed buttock infection. There was no evidence of active infection on exam, and his Keflex was discontinued.
Patient requested discharge. He is medically stable for discharge. He can resume his Lasix upon discharge. He has been instructed to avoid all [id number] NSAID medications. He needs to follow-up with his PCP in 1 week.
Disposition: Home self-care
Discharge planning: Required 33 minutes
Discharge Plan
-
Patient Disposition: Home (Routine Discharge)
Discharge Diagnosis/Procedures: Acute kidney injury superimposed on chronic kidney disease, buttock infection ruled out
Condition: Good
Diet: 2 Gram Sodium and Diabetic, Carb Controlled
Activity: As tolerated
Driving Restrictions: As prior to admission
Activity Restrictions/Additional Instructions:
Please avoid all [id number] NSAID medications such as ibuprofen, naproxen, Aleve, Motrin, Advil.
These medications will worsen your kidney function.
Referrals:
Randy Miles MD [Family Provider, [facility]] - in one week
Prescriptions:
Continued
metoprolol tartrate 25 MG tablet
25 mg PO BID Qty: 60 2RF
Nasal Four 29.6 ML spray,non-aerosol
1 spray NS DAILYPRN PRN (Reason: congestion)
aspirin 81 MG tablet,delayed release (DR/EC)
81 mg PO DAILY
guaifenesin 400 MG tablet
400 mg PO HS
atorvastatin 80 MG tablet
80 mg PO HS
tamsulosin 0.4 MG capsule
0.4 mg PO DAILY Qty: 30 0RF
polyethylene glycol 3350 [Miralax] 17 gram Powder In Packet
17 g PO DAILY
Systane Balance 0.6 % Drops
1 drp BOTH EYES HSPRN PRN (Reason: dry eyes)
Metamucil 3.4 gram/5.4 gram Powder
2 tbsp PO DAILY
ascorbic acid (vitamin C) [Vitamin C] 500 mg Tablet
500 mg PO DAILY
isosorbide mononitrate 30 mg Tablet Extended Release 24 Hr
30 mg PO DAILY Qty: 30 0RF
clopidogrel 75 mg Tablet
75 mg PO DAILY Qty: 30 0RF
pantoprazole 40 mg Tablet,Delayed Release (Dr/Ec)
40 mg PO DAILY Qty: 30 0RF
metformin 500 mg Tablet
500 mg PO BID
glipizide 5 mg tablet extended release 24hr
5 mg PO BID
zinc gluconate 30 mg Tablet
30 mg PO DAILY
cholecalciferol (vitamin D3) 25 mcg (1,000 unit) Tablet
25 mcg PO DAILY
furosemide 40 mg tablet
40 mg PO DAILY
Discontinued
cephalexin 500 mg Capsule
500 mg PO Q8H
Discharge Orders:
Discharge Patient (As Directed); Ordered 03/27/25
Ordered By: Elijah Ruiz
Discharge Date and Time
Discharge Date/Time: 03/27/25 12:15
Print Language: BARBADIAN
--- NOTE | 2025-03-27 11:48 | PTCARENOTE ---
RN was in patient room when RN witnessed patient refuse visiting nurses to case repairer.
[2025-03-27 11:51] LABS: Glucose - Point of Care 135 mg/dl (70-99)
== END 2025-03-27 12:15 | disposition home or self-care (01) | DRG 683 ==
LOC: 4 EAST ACU 19:18
PROVIDERS: Emergency Medicine; ADMITTING PHYSICIAN Hospitalist; ATTENDING PHYSICIAN Family Medicine; EMERGENCY PHYSICIAN Student in an Organized Health Care Education/Training Program; FAMILY PHYSICIAN Family Medicine
DX: N17.9 Acute kidney failure, unspecified (principal); E87.20 Acidosis, unspecified; I50.32 Chronic diastolic (congestive) heart failure; I13.0 Hypertensive heart and chronic kidney disease with heart failure and stage 1 through stage 4 chronic kidney disease, or unspecified chronic kidney disease; E11.22 Type 2 diabetes mellitus with diabetic chronic kidney disease; E11.65 Type 2 diabetes mellitus with hyperglycemia; I25.10 Atherosclerotic heart disease of native coronary artery without angina pectoris; I89.0 Lymphedema, not elsewhere classified; K21.9 Gastro-esophageal reflux disease without esophagitis; K59.00 Constipation, unspecified; N40.0 Benign prostatic hyperplasia without lower urinary tract symptoms; E86.1 Hypovolemia; L40.9 Psoriasis, unspecified; E78.5 Hyperlipidemia, unspecified; N18.32 Chronic kidney disease, stage 3b; E86.0 Dehydration; R63.0 Anorexia; E86.9 Volume depletion, unspecified; Z60.2 Problems related to living alone; Z66 Do not resuscitate; Z87.891 Personal history of nicotine dependence; Z86.73 Personal history of transient ischemic attack (TIA), and cerebral infarction without residual deficits; Z95.1 Presence of aortocoronary bypass graft; Z88.8 Allergy status to other drugs, medicaments and biological substances; Z79.82 Long term (current) use of aspirin; Z79.84 Long term (current) use of oral hypoglycemic drugs
CPT/HCPCS: 71046; 80048; 80053; 81003; 81015; 82962; 83036; 83880; 84484; 85025; 93005; 96360; 99285

== ENCOUNTER 2025-05-19 14:38 | Inpatient (IN) | payer MEDICARE, SELFPAY ==
[2025-05-19] VITALS (9 sets, daily range): BP systolic 121–154; BP diastolic 61–81; BMI 28.9
--- NOTE | 2025-05-19 00:28 | ED.GENMED ---
History of Present Illness
<REJI Justice Last Filed: 05/19/25 02:36>
General
Chief Complaint: Chest Pain
Source: patient
Exam Limitations: none
Time Seen by Provider: 05/19/25 00:12
History of Present Illness
History of Present Illness:
79-year-old male with history of coronary artery disease on aspirin and Plavix presents with the onset of chest pain at 1030 today. He was sitting in his recliner. It was a burning discomfort to the center and left side of his chest. He missed
eating a muffin about 1/2-hour prior to the onset of the discomfort. He ultimately took a nitroglycerin and a full aspirin. Since he has been here in the room he states his pain has been gone. The pain did radiate. No nausea diaphoresis
shortness of breath vomiting or lightheadedness. He states he feels back to normal at this time. No other complaints
Past History
<REJI Justice Last Filed: 05/19/25 02:36>
Past History
ED Past Medical History: CAD, CVA and NIDDM
ED Past Surgical History: Cardiac
Social History
Tobacco: Former smoker
Alcohol: Occasional
Drug: None
Personal:
Living: alone
Employment: Retired
Family History
Family History: Other (Noncontributory)
Phy Exam
<REJI Justice Last Filed: 05/19/25 02:36>
Physical Exam
Physical Exam:
General: Well-appearing male no acute respiratory distress
HEENT: Normal cephalic atraumatic
Heart: Regular rate and rhythm
Lungs: Clear no wheeze
Abdomen is soft nontender nondistended extremities: Mild edema bilateral lower extremities
Scores
<REJI Justice Last Filed: 05/19/25 02:36>
Heart Score for Chest Pain Patients
STEMI patient?: No
History: Moderately Suspicious
ECG: Nonspecific Repolarization
Age: >/= 65 years
Risk Factors: >/= 3 Risk Factors or History of CAD
Troponin: >1 - <3 x Normal Limit
Heart Score for Chest Pain Patients: 7
Heart Score Risk: 72.7 % MACE over next 6 weeks
<Jefry Snow MD - Last Filed: 05/19/25 02:57>
Heart Score for Chest Pain Patients
Heart Score for Chest Pain Patients: 7
Heart Score Risk: 72.7 % MACE over next 6 weeks
Course
<Tod Ibarra PA-C - Last Filed: 05/19/25 02:36>
Orders/Labs/Results
Orders:
Orders
05/19/25 00:07
Electrocardiogram (*1) Urgent
Reason for Study: Chest Pain
Cardiac Monitoring- Treatment ONCE
IV Insert/Care/Rem.- Treatment PRN
O2 Therapy [RESP] Urgent
Titrate/Wean O2 to maintain O2 sat greater than (%): 90
Special Instructions: Maintain sats >/=90%
Pulse Ox/spot Check [RESP] Urgent
Quantity: 1
Special Instructions: ON ROOM AIR
05/19/25 00:08
EKG- Treatment ONCE
05/19/25 00:22
Complete Blood Count/With Diff Urgent
Comprehensive Metabolic Panel Urgent
Lipase Urgent
Comment: ADD ON
Troponin I Urgent
05/19/25 00:23
CR Chest Portable - 1 View Urgent
Comment:
Reason For Exam: chest pain
Reason Study Needs to be Portable: Patient Unstable
05/19/25 00:31
Add On- LAB Urgent
Tests Added?: lipase
05/19/25 02:39
EKG [Electrocardiogram (*1)] Urgent
Reason for Study: Chest Pain
Comment: repeat EKG
05/19/25 02:40
EKG- Treatment ONCE
05/19/25 02:43
Nitroglycerin Ointment [Nitro-Bid] 0.5 inch TOPICAL NOW STA
Abnormal Lab Results
05/19/25
00:22
RBC 4.04 L 10^6/uL
(4.70-6.10)
Hgb 12.4 L g/dL
(13.0-18.0)
Hct 37.4 L %
(39.0-52.0)
MPV 12.1 H fL
(7.4-10.4)
Potassium 3.3 L mmol/L
(3.5-5.1)
BUN 28 H mg/dl
(9-20)
Creatinine 1.5 H mg/dL
(0.7-1.3)
Glucose 224 H mg/dl
(70-99)
05/19/25 00:22
05/19/25 00:22
Vital Signs
Initial and Last Documented VS:
Initial Vital Signs
BP
152/64
05/19/25 00:08
Last Documented Vital Signs
Temp Pulse Resp BP Pulse Ox
98.2 F 71 14 134/68 99
05/19/25 00:12 05/19/25 02:30 05/19/25 02:30 05/19/25 02:00 05/19/25 02:30
<Jefry Snow MD - Last Filed: 05/19/25 02:57>
Orders/Labs/Results
Orders:
Orders
05/19/25 00:07
Electrocardiogram (*1) Urgent
Reason for Study: Chest Pain
Cardiac Monitoring- Treatment ONCE
IV Insert/Care/Rem.- Treatment PRN
O2 Therapy [RESP] Urgent
Titrate/Wean O2 to maintain O2 sat greater than (%): 90
Special Instructions: Maintain sats >/=90%
Pulse Ox/spot Check [RESP] Urgent
Quantity: 1
Special Instructions: ON ROOM AIR
05/19/25 00:08
EKG- Treatment ONCE
05/19/25 00:22
Complete Blood Count/With Diff Urgent
Comprehensive Metabolic Panel Urgent
Lipase Urgent
Comment: ADD ON
Troponin I Urgent
05/19/25 00:23
CR Chest Portable - 1 View Urgent
Comment:
Reason For Exam: chest pain
Reason Study Needs to be Portable: Patient Unstable
05/19/25 00:31
Add On- LAB Urgent
Tests Added?: lipase
05/19/25 02:39
EKG [Electrocardiogram (*1)] Urgent
Reason for Study: Chest Pain
Comment: repeat EKG
05/19/25 02:40
EKG- Treatment ONCE
05/19/25 02:43
Nitroglycerin Ointment [Nitro-Bid] 0.5 inch TOPICAL NOW STA
Abnormal Lab Results
05/19/25
00:22
RBC 4.04 L 10^6/uL
(4.70-6.10)
Hgb 12.4 L g/dL
(13.0-18.0)
Hct 37.4 L %
(39.0-52.0)
MPV 12.1 H fL
(7.4-10.4)
Potassium 3.3 L mmol/L
(3.5-5.1)
BUN 28 H mg/dl
(9-20)
Creatinine 1.5 H mg/dL
(0.7-1.3)
Glucose 224 H mg/dl
(70-99)
05/19/25 00:22
05/19/25 00:22
Vital Signs
Initial and Last Documented VS:
Initial Vital Signs
BP
152/64
05/19/25 00:08
Last Documented Vital Signs
Temp Pulse Resp BP Pulse Ox
98.2 F 71 14 134/68 99
05/19/25 00:12 05/19/25 02:30 05/19/25 02:30 05/19/25 02:00 05/19/25 02:30
<Tod Ibarra PA-C - Last Filed: 05/19/25 02:36>
MDM/Problems Addressed
Differential Diagnosis Includes:
Chest pain now resolved. Consider ACS versus reflux versus arrhythmia less likely to be PE or dissection given resolution of symptoms
EKG shows sinus rhythm with bifascicular block no ischemic changes noted.
Will check labs including troponin and lipase. Chest x-ray pending
<Tod Ibarra PA-C - Last Filed: 05/19/25 02:36>
*Pulse Oximetry
SaO2: 97
Oxygen Mode of Delivery: Room air
Patient hypoxic: no
*Critical Care Note
Total Time (30-74mins, 75-104mins- exclusive of procedures): Not Applicable
<Tod Ibarra PA-C - Last Filed: 05/19/25 02:36>
Update Note
Update Note:
Initial troponin 0.020. Patient has significant cardiac history. Recent cath does demonstrate significant stenosis. Given his discomfort and age and history discussed with emergency room attending will keep in hospital for ACS rule out
ED Attending Note
<Tod Ibarra PA-C - Last Filed: 05/19/25 02:36>
-
Portions of this chart may have been created with voice recognition software.� Occasional wrong word or��sound alike� substitutions may have occurred due to the inherent limitations of voice recognition software.
<Jefry Snow MD - Last Filed: 05/19/25 02:57>
ED Attending Note
Patient seen and examined by attending physician: Yes
ED Attending Note:
Patient with history of CAD, status post CABG in 2009, presents to ED secondary to sudden onset of chest pain around 10 PM, while sitting on his recliner. Chest pain described as tightness, with radiation up to his jaw and shoulder, associated with
diaphoresis. Patient proceeded to take aspirin and nitroglycerin sublingual tablet x 1, with gradual improvement in chest pain. Chest pain lasted approximately an hour with complete resolution after nitroglycerin administration. Of note, patient
states that he had similar chest pain 1 night prior, which was not as severe and resolved without treatment. Denies recent illness. Denies recent travel or surgery. Denies back pain. Denies leg pain or swelling.
Physical Exam
General: no apparent distress, not acutely ill. afebrile
Head: nc/at. eomi
Neck: supple. normal range of motion.
Heart: s1/s2 regular rate and rhythm. no murmur
Lungs: no acute respiratory distress. clear bilaterally
Abdomen: normal bowel sounds. not tender.
Neuro: alert and oriented x 3. no focal neurological deficits
Skin: no rash
Psychiatric: well kept. interactive and cooperative
Extremities: no edema. no calf tenderness.
EKG without any acute ST changes. Patient remains chest pain-free during observation. Half-inch Nitropaste applied.
History and exam concerning for unstable angina, with significant risk factors. As such, patient will be admitted for further evaluation and treatment.
Discharge Plan
Departure
Patient Disposition: Admit
Date of Disposition: 05/19/25
Time of Disposition: 02:35
Presentation/result/management discussed w/ accepting MD/DO: Hospitalist
Discharge Problem:
Chest pain
Prescriptions:
No Action
metoprolol tartrate 25 MG tablet
25 mg PO BID Qty: 60 2RF
Nasal Four 29.6 ML spray,non-aerosol
1 spray NS DAILYPRN PRN (Reason: congestion)
aspirin 81 MG tablet,delayed release (DR/EC)
81 mg PO DAILY
guaifenesin 400 MG tablet
400 mg PO HS
atorvastatin 80 MG tablet
80 mg PO HS
tamsulosin 0.4 MG capsule
0.4 mg PO DAILY Qty: 30 0RF
polyethylene glycol 3350 [Miralax] 17 gram Powder In Packet
17 g PO DAILY
Systane Balance 0.6 % Drops
1 drp BOTH EYES HSPRN PRN (Reason: dry eyes)
Metamucil 3.4 gram/5.4 gram Powder
2 tbsp PO DAILY
ascorbic acid (vitamin C) [Vitamin C] 500 mg Tablet
500 mg PO DAILY
isosorbide mononitrate 30 mg Tablet Extended Release 24 Hr
30 mg PO DAILY Qty: 30 0RF
clopidogrel 75 mg Tablet
75 mg PO DAILY Qty: 30 0RF
pantoprazole 40 mg Tablet,Delayed Release (Dr/Ec)
40 mg PO DAILY Qty: 30 0RF
metformin 500 mg Tablet
500 mg PO BID
glipizide 5 mg tablet extended release 24hr
5 mg PO BID
zinc gluconate 30 mg Tablet
30 mg PO DAILY
cholecalciferol (vitamin D3) 25 mcg (1,000 unit) Tablet
25 mcg PO DAILY
furosemide 40 mg tablet
40 mg PO DAILY
Referrals:
Randy Miles MD [Family Provider, Family Practice]
Interventions
Interventions:
*Risk Screen - Suicide Last Done: 05/19/25 00:27
*General Assessment Last Done: 05/19/25 00:27
*Neglect/Abuse Screening Last Done: 05/19/25 00:27
*ED- Fall Risk Assessment Last Done: 05/19/25 00:26
*ED COVID-19 Vaccine History Last Done: 05/19/25 00:26
*ED Influenza Vaccine History Last Done: 05/19/25 00:26
ED- Cardiac Assessment Last Done: 05/19/25 00:30
Discharge Date and Time
Print Language: BELARUSIAN
[2025-05-19 00:50] LABS: Hematocrit 37.4 % (39.0-52.0); Hemoglobin 12.4 g/dL (13.0-18.0); Mean Corp Hgb Conc. 33.2 g/dL (33.0-37.0); Mean Corpuscular Volume 92.6 fL (80.0-94.0); Nucleated Red Blood Cells % 0 % (-); Platelet Count 174 10^3/uL (130-400); Red Cell Dist. Width 13.4 % (11.5-14.5)
[2025-05-19 01:00] LABS: ALT (SGPT) 28 U/L (0-50); AST (SGOT) 27 U/L (17-59); Albumin 3.7 g/dl (3.5-5.0); Alkaline Phosphatase 57 U/L (38-126); Blood Urea Nitrogen 28 mg/dl (9-20); Calcium 9.1 mg/dl (8.4-10.2); Carbon Dioxide 29 mmol/L (22-30); Chloride 106 mmol/L (98-107); Estimated Creatinine Clearance 39 ml/min; Glucose 224 mg/dl (70-99); Lipase 170 U/L (23-300); Potassium 3.3 mmol/L (3.5-5.1); Sodium 140 mmol/L (135-145); Total Protein 6.4 g/dl (6.3-8.2); eGFR 47.36
[2025-05-19 01:13] LABS: Troponin I 0.020 ng/ml
[2025-05-19] MEDS: NITRO-BID 0.5 INCH TOPICAL (03:04)
--- NOTE | 2025-05-19 03:49 | HPS.HSE ---
Family Physician
-
Family Physician: Randy Miles
Chief Complaint
-
Chest Pain
History of Present Illness
Patient is a 79y M with PMH significant for ASCVD, HFpEF and DM-II who presents to ED complaining of chest pain. Patient states that he started with chest pain around 10-10:30 this evening. By 11 PM his chest pain had no resolved. He took two
NTG tabs and some ASA at home and called 911. He states that his chest pain resolved prior to EMS arrival and it has not recurred. Patient notes that pain was in the center of the chest with some radiation into both shoulders. He denies any
associated lightheadedness, dizziness, dyspnea, diaphoresis or nausea.
Here in the ED patient continues to rest comfortably with no recurrent chest pain.
Medical History
Past Medical History
Past Medical History: Reports Other
Additional Past Medical History:
ASCVD
CVA with Right Hemiparesis
HFpEF
Hypertension
CKD III
DM-II with Retinopathy and CKD
Thyroid Nodule (benign biopsy)
Obesity
Past Surgical History: Reports Other
Additional Past Surgical History:
CABG x 3 (2009)
Hemorrhoidectomy
Cataracts
Social History
Tobacco: Former Smoker ([id number] 2 to 3 pack a day. 1993)
Alcohol: Occasional (1 beer on Saturdays)
Drug: None
Personal:
Living: Alone
Employment: Retired
Family History
Family History: Other (Father failure to thrive, mother 'liver issues,')
Allergies / Home Medications
Allergies reflects when Allergies were last updated in [employer].
Home Medications with original date entered in [employer]
Allergy/Medication List:
Allergies
Allergy/AdvReac Type Severity Reaction Status Date / Time
pioglitazone (From Actos) Allergy Unknown Verified 11/28/25 00:20
Home Medications
metoprolol tartrate 25 mg tablet 25 mg PO BID ##60 01/16/14
aspirin 81 mg tablet,delayed release 81 mg PO DAILY Blood clot prevention/tx 08/11/16
atorvastatin 80 mg tablet 80 mg PO HS High cholesterol 08/11/16
guaifenesin 400 mg tablet 400 mg PO HS Cough 08/11/16
tamsulosin 0.4 mg capsule 0.4 mg PO DAILY #30 caps 01/11/21
polyethylene glycol 3350 17 gram oral powder packet (Miralax) 17 g PO DAILY Constipation 04/08/24
propylene glycol 0.6 % eye drops (Systane Balance) 1 drp BOTH EYES HSPRN PRN dry eyes 04/08/24
psyllium husk 3.4 gram/5.4 gram oral powder (Metamucil) 2 tbsp PO DAILY Constipation 04/08/24
ascorbic acid (vitamin C) 500 mg tablet (Vitamin C) 500 mg PO DAILY Supplement 05/25/24
clopidogrel 75 mg tablet 75 mg PO DAILY #30 tabs 05/27/24
isosorbide mononitrate 30 mg tablet,extended release 24 hr 30 mg PO DAILY #30 tabs 05/27/24
pantoprazole 40 mg tablet,delayed release 40 mg PO DAILY #30 tabs 05/27/24
glipizide 5 mg tablet, extended release 24 hr 5 mg PO BID Diabetes 03/25/25
metformin 500 mg tablet 500 mg PO BID Diabetes 03/25/25
furosemide 40 mg tablet 40 mg PO DAILY Fluid Retention/Swelling 03/26/25
acetaminophen 650 mg tablet 650 mg PO Q8H 05/19/25
loratadine 10 mg tablet 10 mg PO DAILY 05/19/25
melatonin 10 mg capsule 10 mg PO HS PRN insomnia 05/19/25
phenylephrine HCl 1 % nasal spray 1 spray intranasal Q4H 05/19/25
prednisolone acetate 1 % eye drops,suspension 1 - 2 drp LEFT EYE PRN PRN dry eye 05/19/25
triamcinolone acetonide 55 mcg/actuation nasal spray,aerosol 55 mcg intranasal DAILY 05/19/25
Review of Systems
-
History Source: Patient
A 12 point ROS was completed and negative except as noted: Yes
Constitutional: Denies Fever or Chills
Respiratory: Denies Cough or Trouble Breathing
Cardiac: Reports Chest Pain; Denies Palpitations
Abdomen/GI: Denies Abdominal Pain, Nausea, Vomiting or Diarrhea
: Denies Dysuria or Frequency
Musculoskeletal: Reports Edema (chronic); Denies Joint Pain
Neurological: Denies Dizzy or Headache
Psych: Denies Depression or Anxiety
Physical Exam
Vital Signs
Vital Signs
Temp Pulse Resp BP Pulse Ox
98.2 F 71 14 144/77 99
05/19/25 00:12 05/19/25 03:04 05/19/25 02:30 05/19/25 03:04 05/19/25 02:30
Physical Exam
General: Other (79y M in no distress.)
HEENT: Moist mucous membranes and PERRLA
Respiratory: Clear; No Wheezes, Rales or Rhonchi
Cardiac: S1/S2 and Regular Rhythm; No Murmur
GI: Soft, Non Tender, Non Distended and Normal Bowel Sounds
Musculoskeletal: No Clubbing, No Cyanosis and Other (2-3+ pitting edema b/l LEs - L > R.)
Neuro: AO x 3
Laboratory Results
-
05/19/25 00:22
05/19/25 00:22
Laboratory Results
Total Bilirubin 0.5 mg/dl (0.2-1.3) 05/19/25 00:22
AST 27 U/L (17-59) 05/19/25 00:22
ALT 28 U/L (0-50) 05/19/25 00:22
Alkaline Phosphatase 57 U/L (38-126) 05/19/25 00:22
Troponin I Cancelled 05/19/25 02:30
Lipase 170 U/L (23-300) 05/19/25 00:22
Impression/Plan
-
A/P: Patient is a 79y M with PMH significant for ASCVD, HTN and DM-II who presents to ED complaining of chest pain.
Chest Pain
ASCVD
- Observe overnight for further evaluation and treatment.
- Pain free at present after NTG at home.
- EKG is without evident ischemia.
- Initial troponin = 0.02. Follow additional sets to peak.
- Continue usual home CV med regimen including DAPT, statin, etc.
- Cath done 05/2024 with complex anatomy and deemed high-risk PCI at that time - no interventions since that time.
- Monitor for any new/ recurrent chest discomfort.
- Cardiology evaluation for additional recommendations.
Chronic HFpEF
- Chronic LE edema not significantly changed per patient.
- Note: he was recently admitted (03/2025) for SHARON and Lasix was held x several days.
- Patient was to resume Lasix on discharge per instruction - but states that he continued to hold it for about two weeks until he was seen by his PCP in follow-up and it was then restarted.
- Continue current dose for now.
- Follow I/Os, daily weights, etc.
Benign Hypertension
- Stable. Continue home med regimen.
DM-II
- Stable. Hold oral meds acutely.
- Follow glucose and cover with SSI as needed.
CKD III
- Stable. Renal function is at / near known baseline.
- Follow for changes.
DVT Prophylaxis: SCDs
Code Status: Full
[2025-05-19] MEDS: KCL ELIXIR 40 MEQ PO (03:52)
--- NOTE | 2025-05-19 05:19 | PTCARENOTE ---
Pt received from ED via stretcher at 0450. Pt pleasant, AAOx3, VSS, and able to ambulate into room with assistance. Pt receptive to room and call garcia. Pt bed in lowest position and call garcia within reach. Pt educated on importance of call garcia
usage, pt relays limited understanding and cooperation. Bed alarm placed and plugged in. Will continue with current plan of care.
[2025-05-19] MEDS: NON-FORMULARY ITEM 1 UNIT NASAL (06:06)
[2025-05-19 07:07] LABS: Hematocrit 36.6 % (39.0-52.0); Hemoglobin 12.3 g/dL (13.0-18.0); Mean Corp Hgb Conc. 33.6 g/dL (33.0-37.0); Mean Corpuscular Volume 89.9 fL (80.0-94.0); Platelet Count 174 10^3/uL (130-400); Red Cell Dist. Width 13.5 % (11.5-14.5)
[2025-05-19 07:21] LABS: Troponin I 0.046 ng/ml
[2025-05-19 07:56] LABS: Blood Urea Nitrogen 25 mg/dl (9-20); Calcium 8.8 mg/dl (8.4-10.2); Carbon Dioxide 30 mmol/L (22-30); Chloride 106 mmol/L (98-107); Estimated Creatinine Clearance 42 ml/min; Glucose 58 mg/dl (70-99); HDL Cholesterol 38 mg/dl; LDL Cholesterol, Calculated 65 mg/dl; Potassium 3.3 mmol/L (3.5-5.1); Sodium 142 mmol/L (135-145); Very Low Density Lipoprotein 16 mg/dl (0-30); eGFR 51.45
[2025-05-19] MEDS: IMDUR (EXTENDED RELEASE) 30 MG PO ×2 (08:29→10:11)
[2025-05-19] MEDS: PLAVIX 75 MG PO (08:29)
[2025-05-19] MEDS: ASPIR LOW (ENTERIC COATED) 81 MG PO (08:29)
[2025-05-19] MEDS: LASIX 40 MG PO (08:30)
[2025-05-19] MEDS: FLOMAX 0.4 MG PO (08:30)
[2025-05-19] MEDS: PROTONIX 40 MG PO (08:30)
[2025-05-19] MEDS: LOPRESSOR 25 MG PO ×2 (08:33→20:12)
[2025-05-19 08:34] LABS: Glucose - Point of Care 74 mg/dl (70-99)
[2025-05-19] MEDS: NOVOLOG FLEXPEN-LOW RESISTANCE SC ×2 (08:34→17:27)
[2025-05-19 08:51] LABS: Glycohemoglobin (HgbA1c) 5.8 % (4.0-5.9)
--- NOTE | 2025-05-19 09:35 | CON.CAR ---
Addendum entered and electronically signed by Vineet Vivar MD 05/19/25 12:58:
I reviewed and agree with the note by BRIJESH and it accurately reflects our care.
I saw and evaluated the patient, and I provided the substantive portion of the medical decision making. My assessment and plan is below:
79-year-old man with coronary artery disease s/p CABG (2013) with 60% stenosis of MAX to LAD bypass graft in May 2024, HFpEF, CKD, and diabetes who presents with chest pain. He reports an episode of chest pain yesterday midday while he was
using his Lymphapress at home. It lasted about 5 minutes and radiated to bilateral shoulders and neck then resolved on its own. He took a sublingual nitroglycerin and the pain resolved and has not recurred. Prior to yesterday he had had no chest
pain since May 2024.
Physical exam: RRR, no murmurs, clear lungs, 2�3+ bilateral lower extremity edema (chronic)
Labs notable for troponin 0.02 -> 0.046 -> 0.048, creatinine 1.4 (at baseline), LDL 65
ECG: NSR, first-degree AV block, RBBB, lateral T wave inversions
NSTEMI: He is chest pain-free. Peak troponin 0.048 so far. ECG with lateral T wave inversions and no STEMI. We will plan for medical management for now given his complex coronary disease. Continue IV heparin, aspirin, clopidogrel, and
metoprolol. Increase long-acting nitrate to 60 mg daily. Interventional cardiology is reviewing his films to decide on feasibility and timing of revascularization.
Original Note:
Consultation
Consultation Request
Date/Time Consultation Requested: 05/19/2025 04:50
Date/Time Consultation Performed: 05/19/2025 09:30
Requesting Provider: Dr. Victor
Performing Provider: BRIJESH Schwartz for Dr. Vivar
Reason for Consultation: Chest pain
Medical History
-
Chief Complaint: Chest pain
History of Present Illness:
Mendez Muñoz is a 79-year-old male (known to Dr. 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
obesity, previous CVA, and GERD presenting with chest pain. Mr. Muñoz has known LAD disease. He called 911 for chest pain. He took nitroglycerin and aspirin. When EMS arrived his chest pain had completely resolved. He reports it was mid
sternal anterior and radiated into his bilateral shoulders. No associated symptoms of lightheadedness, dizziness, shortness of breath, diaphoresis, nor nausea.
He had a recent admission last month with SHARON superimposed on CKDIIIb in the setting of dehydration. His furosemide was briefly held and he was treated with IV fluids. Peak creatinine 2.3, improved to his baseline of 1.4 on the day of discharge.
He was also on Keflex. His furosemide was resumed at discharge.
Past Medical History
Past Medical History: CAD (Prior CABG), CVA, HTN, Hypercholesterolemia, NIDDM, Renal Failure (CKD 3B) and Other (RBBB, LAFB)
Past Surgical History: Cardiac
Social History
Tobacco: Former Smoker
Alcohol: Occasional
Living: Alone
Employment: Retired
Family History
Family History: Reviewed & Not Pertinent
Allergies / Home Medications
Allergy/AdvReac Type Severity Reaction Status Date / Time
pioglitazone (From [employer]) Allergy Unknown Verified 05/19/25 00:20
�Medication �Instructions �Recorded �Confirmed �Type
metoprolol tartrate 25 mg tablet 25 mg PO BID ##60 01/16/14 05/19/25 Rx
aspirin 81 mg tablet,delayed 81 mg PO DAILY Blood clot 08/11/16 05/19/25 History
release prevention/tx
atorvastatin 80 mg tablet 80 mg PO HS High cholesterol 08/11/16 05/19/25 History
guaifenesin 400 mg tablet 400 mg PO HS Cough 08/11/16 05/19/25 History
tamsulosin 0.4 mg capsule 0.4 mg PO DAILY #30 caps 01/11/21 05/19/25 Rx
polyethylene glycol 3350 17 gram 17 g PO DAILY Constipation 04/08/24 05/19/25 History
oral powder packet (Miralax)
propylene glycol 0.6 % eye drops 1 drp BOTH EYES HSPRN PRN dry eyes 04/08/24 05/19/25 History
(Systane Balance)
psyllium husk 3.4 gram/5.4 gram 2 tbsp PO DAILY Constipation 04/08/24 05/19/25 History
oral powder (Metamucil)
ascorbic acid (vitamin C) 500 mg 500 mg PO DAILY Supplement 05/25/24 05/19/25 History
tablet (Vitamin C)
clopidogrel 75 mg tablet 75 mg PO DAILY #30 tabs 05/27/24 05/19/25 Rx
isosorbide mononitrate 30 mg 30 mg PO DAILY #30 tabs 05/27/24 05/19/25 Rx
tablet,extended release 24 hr
pantoprazole 40 mg tablet,delayed 40 mg PO DAILY #30 tabs 05/27/24 05/19/25 Rx
release
glipizide 5 mg tablet, extended 5 mg PO BID Diabetes 03/25/25 05/19/25 History
release 24 hr
metformin 500 mg tablet 500 mg PO BID Diabetes 03/25/25 05/19/25 History
furosemide 40 mg tablet 40 mg PO DAILY Fluid 03/26/25 05/19/25 History
Retention/Swelling
acetaminophen 650 mg tablet 650 mg PO Q8H 05/19/25 05/19/25 History
loratadine 10 mg tablet 10 mg PO DAILY 05/19/25 05/19/25 History
melatonin 10 mg capsule 10 mg PO HS PRN insomnia 05/19/25 05/19/25 History
phenylephrine HCl 1 % nasal spray 1 spray intranasal Q4H 05/19/25 05/19/25 History
prednisolone acetate 1 % eye 1 - 2 drp LEFT EYE PRN PRN dry eye 05/19/25 05/19/25 History
drops,suspension
triamcinolone acetonide 55 55 mcg intranasal DAILY 05/19/25 05/19/25 History
mcg/actuation nasal spray,aerosol
Review of Systems
-
History Source: Patient
All other systems: Negative unless noted
Constitutional: No Symptoms
EENT: No Symptoms
Respiratory: No Symptoms
Cardiac: No Symptoms
Abdomen/GI: No Symptoms
: No Symptoms
Musculoskeletal: No Symptoms
Skin: No Symptoms
Neurological: No Symptoms
Endocrine: No Symptoms
Hematologic/Lymphatic: No Symptoms
Physical Exam
Vital Signs
Temp Pulse Resp BP Pulse Ox
97.7 F 62 18 146/62 97
05/19/25 07:07 05/19/25 07:07 05/19/25 07:07 05/19/25 07:07 05/19/25 07:07
Lab Results
05/19/25 06:41
Troponin I 0.046 ng/ml H* D 05/19/25 06:40
Physical Exam
General: Well Developed, Well Nourished and No Apparent Distress
HEENT: Normocephalic, Anicteric and Moist Mucous Membranes
Respiratory: Clear and Non Labored Respirations
Cardiac: S1/S2 and Regular Rhythm
Breast: Deferred by me
GI: Soft, Non Tender, Non Distended and Normal Bowel Sounds
Rectal: Deferred by Provider
Genito-urinary: No Costovertebral Tender
Musculoskeletal: No Clubbing and No Cyanosis
Skin: Warm and Dry
Neuro: AO x 3
Hematologic/Lymphatic: No Lymphadenopathy
Psych: Calm
Impression / Plan
-
I/P: 79M with CAD status-post CABG (01/11/14), hypertension, hyperlipidemia, chronic RBBB/LAFB, CKD3b, carotid artery disease, type 2 diabetes mellitus, obesity, previous CVA, and GERD presenting with chest pain.
Primary box maker wood: Dr. Bal
NSTEMI
- Currently chest pain-free, troponin 0.046, trend to peak
- EKG with chronic RBBB
- Increase anti-anginal therapy, increase isosorbide mononitrate to 60 mg daily
- Can consider orbital atherectomy and PCI of the left main into the LAD, will review with interventional cardiology
HFpEF, chronic
- Appears euvolemic on exam, he does have chronic bilateral lower extremity lymphedema
- Continue current medical therapy, he requires furosemide 40 mg daily to maintain euvolemia
- Consider transitioning glipizide to SGLT2i
CAD, s/p CABG 2013
- Continue beta-karmen, statin, and DAPT
- Plan as above
Hypertension, chronic, stable, following with medication titration
RBBB, chronic
Lymphedema, bilateral, chronic, uses compression device daily at home
Hypercholesterolemia, with significant CAD, aim for LDL <55, add Zetia 10 mg
Type 2 diabetes mellitus, controlled, HgbA1c 5.8%
CVA (2006)
Carotid artery disease, less than 50% stenosis in 2019, asymptomatic, outpatient surveillance carotid artery ultrasoun
Former smoker, continue cessation recommended
Data Reviewed
-
EKG: Report Reviewed by me
Radiology: Report Reviewed by me
Medical Tests (Nuc Med, Echo etc): Report Reviewed by me
Labs: Labs Reviewed by me
Old Records: Reviewed
[2025-05-19] MEDS: KCL 270 MEQ IV (09:55)
[2025-05-19] MEDS: HEPARIN 25000 UNITS/250 ML IV (10:12)
[2025-05-19 10:15] LABS: Hematocrit 34.7 % (39.0-52.0); Hemoglobin 11.6 g/dL (13.0-18.0); Mean Corp Hgb Conc. 33.4 g/dL (33.0-37.0); Mean Corpuscular Volume 89.7 fL (80.0-94.0); Platelet Count 172 10^3/uL (130-400); Red Cell Dist. Width 13.4 % (11.5-14.5)
[2025-05-19 10:24] LABS: APTT 28.6 Sec (23.4-35.0)
[2025-05-19 10:40] LABS: Troponin I 0.048 ng/ml
--- NOTE | 2025-05-19 12:35 | CM ---
CM reviewed chart, patient seen bedside.
CM attempted to complete initial assessment- patient asks 'do we really have to do this today?', reports he has had a very bad day and does not wish to speak with CM at this time.
Patient admitted under observation status- RENDON not provided as patient asking CM to return at another time.
Per previous admission:
Patient resides alone, has a walker, cane, shower chair, toilet rails, and shower grab bar.
[facility], [facility].
PCP Randy Miles, [facility].
CM will continue to follow.
Plan; home no needs, IA not completed as patient not willing to speak to CM at this time
--- NOTE | 2025-05-19 12:41 | W.PN.UPDATE ---
Update Note
Progress Note Update
NSTEMI with known hx of CAD
Trop trend till peak
Hep gtt
Increase imdur to 60mg daily or can start ranexa (if cards plans for only med management)
May need [facility] appreciate Cards input
2d echo
CAD, High risk PCI rec in 2023, CABG 2013
Continue dapt
Continue HIStatin
May benefit from zetia or pcsk9i as LDL >55
HFpEF, chronic
continue current medical therapy
Chronic lymphedema
Outpt lymphedema follow up
Benign Hypertension
Continue home med regimen
DM-II
Accuchecks
SSI
BG 140-180
CCDiet
CKD III
Renal function is at / near known baseline.
[2025-05-19 12:50] LABS: Glucose - Point of Care 150 mg/dl (70-99)
[2025-05-19] MEDS: MIRALAX 17 GRAMS PO (14:01)
[2025-05-19] MEDS: NOVOLOG FLEXPEN-LOW RESISTANCE 1 UNITS SC (14:01)
[2025-05-19 16:43] LABS: APTT 71.9 Sec (23.4-35.0)
[2025-05-19 17:01] LABS: Glucose - Point of Care 112 mg/dl (70-99)
[2025-05-19] MEDS: LIPITOR 80 MG PO (21:22)
[2025-05-19] MEDS: ZETIA 10 MG PO (21:22)
[2025-05-19 21:23] LABS: Glucose - Point of Care 120 mg/dl (70-99)
[2025-05-20 00:28] LABS: APTT 143.7 Sec (23.4-35.0)
[2025-05-20 02:23] VITALS: BP 129/67
[2025-05-20] MEDS: HEPARIN 25000 UNITS/250 ML IV (05:00)
[2025-05-20 06:00] VITALS: BMI 28.7
[2025-05-20 07:31] LABS: Glucose - Point of Care 83 mg/dl (70-99)
[2025-05-20 07:40] VITALS: BP 157/69
[2025-05-20 07:50] LABS: Hematocrit 38.5 % (39.0-52.0); Hemoglobin 12.8 g/dL (13.0-18.0); Mean Corp Hgb Conc. 33.2 g/dL (33.0-37.0); Mean Corpuscular Volume 90.4 fL (80.0-94.0); Platelet Count 169 10^3/uL (130-400); Red Cell Dist. Width 13.5 % (11.5-14.5)
[2025-05-20 08:11] LABS: APTT 110.6 Sec (23.4-35.0)
[2025-05-20 09:11] LABS: Blood Urea Nitrogen 18 mg/dl (9-20); Calcium 8.9 mg/dl (8.4-10.2); Carbon Dioxide 30 mmol/L (22-30); Chloride 106 mmol/L (98-107); Estimated Creatinine Clearance 49 ml/min; Glucose 80 mg/dl (70-99); Potassium 3.7 mmol/L (3.5-5.1); Sodium 140 mmol/L (135-145); eGFR > 60.00
[2025-05-20] MEDS: NOVOLOG FLEXPEN-LOW RESISTANCE SC ×3 (10:04→17:05)
[2025-05-20] MEDS: ASPIR LOW (ENTERIC COATED) 81 MG PO (10:05)
[2025-05-20] MEDS: PLAVIX 75 MG PO (10:05)
[2025-05-20] MEDS: FLOMAX 0.4 MG PO (10:06)
[2025-05-20] MEDS: IMDUR (EXTENDED RELEASE) 60 MG PO (10:06)
[2025-05-20] MEDS: LOPRESSOR 25 MG PO ×2 (10:06→21:16)
[2025-05-20] MEDS: LASIX 40 MG PO (10:06)
[2025-05-20] MEDS: MIRALAX 17 GRAMS PO (10:07)
[2025-05-20] MEDS: PROTONIX 40 MG PO (10:07)
--- NOTE | 2025-05-20 10:44 | W.PN.CD ---
Addendum entered and electronically signed by Scar Bal MD 05/20/25 12:29:
I saw and evaluated the patient, and I provided the substantive portion of the medical decision making.
I reviewed and agree with the note by Ms Hidalgo and it accurately reflects our care.
I personally performed the medical decision making of the this encounter and my assessment and plan is below:
Patient is adamant on leaving. Recommend discharge after 48 total hours of heparin. Otherwise continue current meds. We will set up follow-up as an outpatient for further evaluation if necessary.
Original Note:
Today's Communication / Plan
-
No further CP. Continue DAPT, statin, BB, increased nitrate. Continue IV heparin for total 48 hours.
Impression / Plan
-
79-year-old man (patient of Dr. Bal) with coronary artery disease s/p CABG (2013) with 60% stenosis of MAX to LAD bypass graft in May 2024, HFpEF, CKD, and diabetes who presented with an episode of chest pain.
NSTEMI:
-diagnosis is threat to life
- no further CP
- trop 0.048
- NSR, first-degree AV block, RBBB, lateral T wave inversions
-We will plan for medical management for now given his complex coronary disease. Continue IV heparin (48 hours)- requires intensive monitorign, aspirin, clopidogrel, and metoprolol. Long-acting nitrate increased to 60 mg daily. Interventional
cardiology (Dr. Beltre) plans to review his films to decide on feasibility and timing of potential revascularization.
-echo 05/19/25: Normal left ventricular systolic function with no regional wall motion abnormalities. LVEF 70%. No significant valvular disease.
HFpEF, chronic
- Appears euvolemic on exam, he does have chronic bilateral lower extremity lymphedema
- continue usual lasix
CAD, s/p CABG 2013
- Continue beta-karmen, statin, and DAPT
- Plan as above
Hypertension, chronic, stable, following with medication titration
RBBB, chronic
Lymphedema, bilateral, chronic, uses compression device daily at home
Hypercholesterolemia, with significant CAD, aim for LDL <55, add Zetia 10 mg
Type 2 diabetes mellitus, controlled, HgbA1c 5.8%
CVA (2006)
Carotid artery disease, less than 50% stenosis in 2019, asymptomatic, outpatient surveillance carotid artery ultrasoun
Former smoker, continue cessation recommended
Subjective:
Feels well and hopes to leave tomorrow.
Physical Exam
Vital Signs/Labs
Vital Signs
Temp Pulse Resp BP Pulse Ox
97.3 F 67 18 157/69 94
05/20/25 07:40 05/20/25 07:40 05/20/25 07:40 05/20/25 07:40 05/20/25 08:45
05/19/25 05/20/25 05/21/25
06:59 06:59 06:59
Actual Weight 190 lb 1 oz 188 lb 8 oz
05/20/25 07:38
05/20/25 07:38
APTT Cancelled 05/20/25 14:00
Triglycerides 82 mg/dl (10-149) 05/19/25 06:41
LDL Cholesterol, Calc 65 mg/dl 05/19/25 06:41
VLDL Cholesterol, Calc 16 mg/dl (0-30) 05/19/25 06:41
HDL Cholesterol 38 mg/dl 05/19/25 06:41
LAB Results
05/19/25 05/19/25 05/19/25
00:22 02:30 06:40
Troponin I 0.020 Cancelled 0.046 H* D
05/19/25
10:06
Troponin I 0.048 H*
Physical Exam
Constitutional: No acute distress
EENT: Anicteric
Cardiovascular: Rhythm & rate is regular
Respiratory: Respiratory effort normal and Lungs clear to auscul.
Neuro/Psych: AO x 3
Data Reviewed
-
Date of Service: May 20, 2025
EKG: Other (SR 60's telemetry)
Labs: Labs Reviewed by me
[2025-05-20 11:32] LABS: Glucose - Point of Care 130 mg/dl (70-99)
[2025-05-20 11:43] VITALS: BP 131/62
--- NOTE | 2025-05-20 11:46 | W.PN.HOSP.TC ---
Today's Communication/Plan
-
Assessment / Plan
Assessment / Plan
NAD
Scleral Anicteric
MMM
No JVD
CTABL
RRR, S1/S2
Soft, NT, ND, BS+
Warm, Dry
AAOx3
Calm
NSTEMI with known hx of CAD
Mediclaly manage
Hep gtt for 48hours per cardiology for medical management
Increase imdur to 60mg daily
Complex Cad hx, 'Interventional cardiology (Dr. Beltre) plans to review his films to decide on feasibility and timing of potential revascularization.'
2d echo no significant from echo 05/2024
CAD, High risk PCI rec in 2023, CABG 2013
Continue dapt
Continue HIStatin
Started zetia
HFpEF, chronic
continue current medical therapy
Chronic lymphedema
Outpt lymphedema follow up
Benign Hypertension
Continue home med regimen
DM-II
Accuchecks
SSI
BG 140-180
CCDiet
CKD III
Renal function is at / near known baseline.
Anticipated Discharge: 24 - 48 hours
Subjective/Interval History
-
Date of Service: May 20, 2025
seen and examing. no new complaints. no acute overnight events
Objective Data
-
Labs:
Laboratory Results
05/19/25 05/20/25 05/20/25
23:56 07:38 13:40
WBC 8.4
Hgb 12.8 L
Hct 38.5 L
Plt Count 169
APTT 143.7 H 110.6 H Pending
Sodium 140
Potassium 3.7
Chloride 106
Carbon Dioxide 30
BUN 18
Creatinine 1.2
Glucose 80
Calcium 8.9
05/20/25
14:00
WBC
Hgb
Hct
Plt Count
APTT Cancelled
Sodium
Potassium
Chloride
Carbon Dioxide
BUN
Creatinine
Glucose
Calcium
Vital Signs:
Vital Signs
Temp Pulse Resp BP Pulse Ox
97.7 F 61 16 131/62 96
05/20/25 11:43 05/20/25 11:43 05/20/25 11:43 05/20/25 11:43 05/20/25 11:43
I&O
05/19/25 05/20/25 05/21/25
06:59 06:59 06:59
Intake Total 1591 / 1591
Output Total 1275 / 1275
Balance 316 / 316
[2025-05-20 14:04] LABS: APTT 96.0 Sec (23.4-35.0)
[2025-05-20 15:39] VITALS: BP 130/68
--- NOTE | 2025-05-20 16:00 | PTCARENOTE ---
Patient received resting in bed. Alert, pleasant, no complaints at this time.
[2025-05-20 17:03] LABS: Glucose - Point of Care 104 mg/dl (70-99)
[2025-05-20 19:00] VITALS: BP 143/68
[2025-05-20] MEDS: ZETIA 10 MG PO (21:17)
[2025-05-20] MEDS: LIPITOR 80 MG PO (21:17)
[2025-05-20 21:35] LABS: Glucose - Point of Care 120 mg/dl (70-99)
[2025-05-20 23:00] VITALS: BP 153/71
--- NOTE | 2025-05-20 23:00 | PTCARENOTE ---
Pt. was refusing to wait until staff came to get him OOB to go to bathroom, pt. on bed alarm. R.N. explained that he is a fall risk, heparin gtt running. Pt. became argumentative with R.N. and stated 'I will do what I want and you won't tell me what
to do'. R.N. explained that pt. could fall and be severely hurt. Pt. apologized to R.N. and said 'I know you are only trying to do your job'.
[2025-05-21 03:34] VITALS: BP 146/65
[2025-05-21 05:50] VITALS: BMI 28.1
[2025-05-21 07:25] LABS: Hematocrit 38.7 % (39.0-52.0); Hemoglobin 13.1 g/dL (13.0-18.0); Mean Corp Hgb Conc. 33.9 g/dL (33.0-37.0); Mean Corpuscular Volume 89.8 fL (80.0-94.0); Platelet Count 181 10^3/uL (130-400); Red Cell Dist. Width 13.4 % (11.5-14.5)
[2025-05-21 07:37] LABS: Glucose - Point of Care 92 mg/dl (70-99)
[2025-05-21 07:37] LABS: APTT 77.9 Sec (23.4-35.0)
[2025-05-21] MEDS: HEPARIN 25000 UNITS/250 ML IV (07:39)
[2025-05-21] MEDS: NOVOLOG FLEXPEN-LOW RESISTANCE SC (07:43)
[2025-05-21 07:48] VITALS: BP 142/76
[2025-05-21] MEDS: PROTONIX 40 MG PO (08:35)
[2025-05-21] MEDS: FLOMAX 0.4 MG PO (08:35)
[2025-05-21] MEDS: IMDUR (EXTENDED RELEASE) 60 MG PO (08:35)
[2025-05-21] MEDS: MIRALAX PO (08:35)
[2025-05-21] MEDS: LOPRESSOR 25 MG PO (08:35)
[2025-05-21] MEDS: PLAVIX 75 MG PO (08:36)
[2025-05-21] MEDS: ASPIR LOW (ENTERIC COATED) 81 MG PO (08:36)
[2025-05-21] MEDS: LASIX 40 MG PO (08:36)
[2025-05-21 10:09] LABS: Blood Urea Nitrogen 15 mg/dl (9-20); Calcium 8.8 mg/dl (8.4-10.2); Carbon Dioxide 32 mmol/L (22-30); Chloride 104 mmol/L (98-107); Estimated Creatinine Clearance 49 ml/min; Glucose 166 mg/dl (70-99); Potassium 3.5 mmol/L (3.5-5.1); Sodium 139 mmol/L (135-145); eGFR > 60.00
--- NOTE | 2025-05-21 11:15 | CM ---
Discharge home today
IMM verbally reviewed, copy provided, copy on chart
No CM needs at this time
--- NOTE | 2025-05-21 11:41 | W.DCSUMMARY ---
Discharge Summary
Discharge Data
Date of Admission: 05/19/25
Date of Discharge: 05/21/25
-
Pending Results: No
Hospital Course
79y M with PMH significant for ASCVD, HFpEF and DM-II
Presented with progressive angina with troponin that peaked 0.048. Ekg with lateral twave inversion. Started on heparin drip and was evaluated by cardiology. Cardiology recommended medical management for now given known complex coronary disease
from recent left heart cancerization in 05/2024. Continue IV heparin, aspirin, clopidogrel, and metoprolol. Increase long-acting nitrate to 60 mg daily. Add zetia to target a lower LDL. Interventional cardiology will review films to decide on
feasibility and timing of revascularization. Will need continue outpatient cardiology follow up and maintain compliance of medications.
2d echo
SUMMARY
1. Normal left ventricular systolic function with no regional wall motion abnormalities. LVEF 70%.
2. No significant valvular disease.
3. No change compared to prior echocardiogram in May 2024.
Seen and examined on the day of discharge which was 05/21/2025. No new complaints. No acute overnighrt events
Cleared by cardiology for discharge
NAD
Scleral Anicteric
MMM
No JVD
CTABL
RRR, S1/S2
Soft, NT, ND, BS+
Warm, Dry
AAOx3
Calm
More than 30 minutes spent in discharge including
Final examination of the patient
Summarizing hospital stay
Instructions for continuing care to all relevant caregivers
Preparation of discharge records, prescriptions, and referral forms
Total time spent (in minutes): 33
Discharge Plan
-
Patient Disposition: Home (Routine Discharge)
Discharge Diagnosis/Procedures: NSTEMI
CAD
Condition: Fair
Diet: As tolerated
Activity: As tolerated
Activity Restrictions/Additional Instructions:
Presented with progressive angina with troponin that peaked 0.048. Ekg with lateral twave inversion. Started on heparin drip and was evaluated by cardiology. Cardiology recommended medical management for now given known complex coronary disease
from recent left heart cancerization in 05/2024. Continue IV heparin, aspirin, clopidogrel, and metoprolol. Increase long-acting nitrate to 60 mg daily. Add zetia to target a lower LDL. Interventional cardiology will review films to decide on
feasibility and timing of revascularization. Will need continue outpatient cardiology follow up and maintain complaince of medications.
2d echo
SUMMARY
1. Normal left ventricular systolic function with no regional wall motion abnormalities. LVEF 70%.
2. No significant valvular disease.
3. No change compared to prior echocardiogram in May 2024.
Referrals:
Randy Miles MD [Family Provider, Family Practice]
Scar Bal MD [Active, Cardiology] - in two to four weeks
Referral Note: office will call you to arrange
Prescriptions:
New
isosorbide mononitrate 60 mg Tablet Extended Release 24 Hr
60 mg PO DAILY Qty: 30 0RF
nitroglycerin 0.4 mg Tablet, Sublingual
0.4 mg sublingual [id number] PRN (Reason: Chest Pain) Qty: 60 0RF
ezetimibe 10 mg Tablet
10 mg PO HS Qty: 30 0RF
Continued
guaifenesin 400 MG tablet
400 mg PO HS
tamsulosin 0.4 MG capsule
0.4 mg PO DAILY Qty: 30 0RF
polyethylene glycol 3350 [Miralax] 17 gram Powder In Packet
17 g PO DAILY
Systane Balance 0.6 % Drops
1 drp BOTH EYES HSPRN PRN (Reason: dry eyes)
Metamucil 3.4 gram/5.4 gram Powder
2 tbsp PO DAILY
ascorbic acid (vitamin C) [Vitamin C] 500 mg Tablet
500 mg PO DAILY
pantoprazole 40 mg Tablet,Delayed Release (Dr/Ec)
40 mg PO DAILY Qty: 30 0RF
acetaminophen 650 mg Tablet
650 mg PO Q8H
prednisolone acetate 1 % Drops,Suspension
1 - 2 drp LEFT EYE PRN PRN (Reason: dry eye)
phenylephrine HCl 1 % [place],Non-Aerosol
1 spray INTRANASAL Q4H
triamcinolone acetonide 55 mcg/actuation Aerosol
55 mcg INTRANASAL DAILY
loratadine 10 mg Tablet
10 mg PO DAILY
melatonin 10 mg Capsule
10 mg PO HS PRN (Reason: insomnia)
furosemide 40 mg tablet
40 mg PO DAILY Qty: 30 0RF
metformin 500 mg Tablet
500 mg PO BID Qty: 60 0RF
atorvastatin 80 MG tablet
80 mg PO HS Qty: 30 0RF
glipizide 5 mg tablet extended release 24hr
5 mg PO BID Qty: 60 0RF
clopidogrel 75 mg Tablet
75 mg PO DAILY Qty: 30 0RF
aspirin 81 MG tablet,delayed release (DR/EC)
81 mg PO DAILY Qty: 30 0RF
metoprolol tartrate 25 MG tablet
25 mg PO BID Qty: 60 2RF
Discontinued
isosorbide mononitrate 30 mg Tablet Extended Release 24 Hr
30 mg PO DAILY Qty: 30 0RF
Discharge Orders:
Discharge Patient (As Directed); Ordered 05/21/25
Ordered By: Ej Finney
Discharge Date and Time
Discharge Date/Time: 05/21/25 11:34
Print Language: WOLOF
--- NOTE | 2025-05-21 13:33 | W.PN.CD ---
Today's Communication / Plan
-
Continue cardiac meds
Follow-up as outpatient
Impression / Plan
-
79-year-old man (patient of Dr. Bal) with coronary artery disease s/p CABG (2013) with 60% stenosis of MAX to LAD bypass graft in May 2024, HFpEF, CKD, and diabetes who presented with an episode of chest pain.
NSTEMI:
-diagnosis is threat to life
- no further CP
- trop 0.048
- NSR, first-degree AV block, RBBB, lateral T wave inversions
-We will plan for medical management for now given his complex coronary disease. Continue IV heparin (48 hours)- requires intensive monitorign, aspirin, clopidogrel, and metoprolol. Long-acting nitrate increased to 60 mg daily. Interventional
cardiology (Dr. Beltre) plans to review his films to decide on feasibility and timing of potential revascularization.
-echo 05/19/25: Normal left ventricular systolic function with no regional wall motion abnormalities. LVEF 70%. No significant valvular disease.
HFpEF, chronic
- Appears euvolemic on exam, he does have chronic bilateral lower extremity lymphedema
- continue usual lasix
CAD, s/p CABG 2013
- Continue beta-karmen, statin, and DAPT
- Plan as above
Hypertension, chronic, stable, following with medication titration
RBBB, chronic
Lymphedema, bilateral, chronic, uses compression device daily at home
Hypercholesterolemia, with significant CAD, aim for LDL <55, add Zetia 10 mg
Type 2 diabetes mellitus, controlled, HgbA1c 5.8%
CVA (2006)
Carotid artery disease, less than 50% stenosis in 2019, asymptomatic, outpatient surveillance carotid artery ultrasoun
Former smoker, continue cessation recommended
Subjective:
Feels well and hopes to leave tomorrow.
Physical Exam
Vital Signs/Labs
Vital Signs
Temp Pulse Resp BP Pulse Ox
98.2 F 65 16 142/76 98
05/21/25 07:48 05/21/25 08:35 05/21/25 07:48 05/21/25 08:35 05/21/25 07:48
05/20/25 05/21/25 05/22/25
06:59 06:59 06:59
Actual Weight 188 lb 8 oz 185 lb
05/21/25 06:47
05/21/25 09:12
APTT 77.9 Sec (23.4-35.0) H 05/21/25 06:47
Triglycerides 82 mg/dl (10-149) 05/19/25 06:41
LDL Cholesterol, Calc 65 mg/dl 05/19/25 06:41
VLDL Cholesterol, Calc 16 mg/dl (0-30) 05/19/25 06:41
HDL Cholesterol 38 mg/dl 05/19/25 06:41
LAB Results
05/19/25 05/19/25 05/19/25
00:22 02:30 06:40
Troponin I 0.020 Cancelled 0.046 H* D
05/19/25
10:06
Troponin I 0.048 H*
Physical Exam
Constitutional: No acute distress and Comfortable
EENT: Anicteric
Cardiovascular: Rhythm & rate is regular
Respiratory: Respiratory effort normal
GI: Soft
Neuro/Psych: AO x 3
Data Reviewed
-
Date of Service: May 21, 2025
EKG: Tracing Personally Visualized and interpreted (Sinus)
Echo: Report Reviewed by me
Labs: Labs Reviewed by me
== END 2025-05-21 11:34 | disposition home or self-care (01) | DRG 281 ==
LOC: 4 WEST ACU 14:38
PROVIDERS: Emergency Medicine; ADMITTING PHYSICIAN Hospitalist; ATTENDING PHYSICIAN Hospitalist; CONSULT PHYSICIAN Student in an Organized Health Care Education/Training Program; EMERGENCY PHYSICIAN Emergency Medicine; FAMILY PHYSICIAN Family Medicine
DX: I21.4 Non-ST elevation (NSTEMI) myocardial infarction (principal); I13.0 Hypertensive heart and chronic kidney disease with heart failure and stage 1 through stage 4 chronic kidney disease, or unspecified chronic kidney disease; I50.32 Chronic diastolic (congestive) heart failure; I69.351 Hemiplegia and hemiparesis following cerebral infarction affecting right dominant side; I25.10 Atherosclerotic heart disease of native coronary artery without angina pectoris; N18.32 Chronic kidney disease, stage 3b; E11.22 Type 2 diabetes mellitus with diabetic chronic kidney disease; E66.9 Obesity, unspecified; Z95.1 Presence of aortocoronary bypass graft; Z87.891 Personal history of nicotine dependence; Z79.82 Long term (current) use of aspirin; Z79.02 Long term (current) use of antithrombotics/antiplatelets; Z79.84 Long term (current) use of oral hypoglycemic drugs; Z79.899 Other long term (current) drug therapy; I45.10 Unspecified right bundle-branch block; E78.00 Pure hypercholesterolemia, unspecified; K21.9 Gastro-esophageal reflux disease without esophagitis
CPT/HCPCS: 71045; 80048; 80053; 80061; 82962; 83036; 83690; 84484; 85025; 85027; 85730; 93005; 93306; 94760; 99285